=== PATIENT | female | born 1955 | race Caucasian/White ===

== ENCOUNTER 2020-12-15 13:37 | Outpatient (CLI) | payer BC, SELFPAY ==
--- NOTE | ~2020-12-15 | MM_ITS ---
EXAMINATION: MM screening ray BI w benedicto HISTORY: Screening TECHNIQUE: Craniocaudal and mediolateral oblique 3-D tomosynthesis images were obtained and synthetic 2-D images were generated. CAD analysis was submitted and interpreted. COMPARISON: No prior mammogram is available for comparison at this institution. BREAST PARENCHYMAL COMPOSITION: There are scattered areas of fibroglandular density. FINDINGS: There is no evidence of suspicious mass, calcification, or architectural distortion to sugg est malignancy in either breast. There has been no suspicious interval change. IMPRESSION: 1. No mammographic evidence of malignancy. 2. Recommend routine screening mammography in one year. BI-RADS Category 1: Negative Reviewed, dictated and finalized at location A.
== END 2020-12-15 13:38 | disposition home or self-care (01) ==
PROVIDERS: PCP Physician Assistant; Visit Provider Physician Assistant
DX: Z12.31 Encounter for screening mammogram for malignant neoplasm of breast (principal)
CPT/HCPCS: 77063; 77067

== ENCOUNTER 2022-06-29 13:54 | Outpatient (CLI) | payer MEDICARE, MEDICAID, SELFPAY ==
--- NOTE | ~2022-06-29 | DEXA_ITS ---
Bone Density Report Name: GAYE WEEMS Age: 67 Sex: Female Ethnicity: White Date of : 1955 Indication: postmenopausal; screening for osteoporosis; height loss; Referring Provider: ESME, REVA Study: Bone densitometry was performed. Exam Date: June 29, 2022 Accession number: [id number] Bone Density: Region BMD T-score Z-score Classification AP Spine(L1-L4) 1.132 0.8 2.6 Normal Femoral Neck (Left) 0.831 -0.2 1.4 Normal Total Hip (Left) 1.050 0.9 2.1 Normal Femoral Neck (Right) 0.892 0.4 1.9 Normal Total Hip (Right) 1.084 1.2 2.4 Normal Total Hip Mean 1.067 1.1 2.3 Normal World Health Organization criteria for BMD impression classify patients as: Normal (T-score at or above -1.0), Osteopenia (T-score between -1.0 and -2.5), or Osteoporosis (T-score at or below -2.5). 10-year Fracture Risk: FRAX not reported because: All T-scores for Spine Total, Hip Total, Femoral Neck at or above -1.0 Clinical Information Provided by Patient: Patient maximum height was 63 Menopause Age: 54 No regular weight bearing exercise Drinks caffeinated beverages Onset of menses at age 16 Number of children 2 Impression: The patient has normal bone mass. Discussion: BONE DENSITY IS ABOVE THE MINIMUM DESIRABLE LEVEL AT ALL SKELETAL SITES TESTED. This patient?s bone mineral density is above the minimum desirable level (T-score -1.0 or better) at all sites measured. The patient should follow a healthful lifestyle (good nutrition with adequate calcium and vitamin D, and appropriate weight-bearing exercise). Follow-Up: Consider repeating this study in 5 years or sooner if there is some new clinical indication. Reported by: NANCIE on 06/29/2022 2:25:00 PM. Reviewed, dictated and finalized at location AMitch [facility]
--- NOTE | ~2022-06-29 | MM_ITS ---
EXAMINATION: MM screening ray BI w benedicto HISTORY: Screening TECHNIQUE: Craniocaudal and mediolateral oblique 3-D tomosynthesis images were obtained and synthetic 2-D images were generated. CAD analysis was submitted and interpreted. COMPARISON: 12/15/2020 BREAST PARENCHYMAL COMPOSITION: The breasts are almost entirely fatty. FINDINGS: There is no evidence of suspicious mass, calcification, or architectural distortion to sugg est malignancy in either breast. There has been no suspicious interval change. IMPRESSION: 1. No mammographic evidence of malignancy. 2. Recommend routine screening mammography in one year. BI-RADS Category 1: Negative Reviewed, dictated and finalized at location B. RAIT ARTIST
== END 2022-06-29 13:55 | disposition home or self-care (01) ==
PROVIDERS: PCP Physician Assistant; Referring Provider Physician Assistant; Visit Provider Physician Assistant
DX: Z12.31 Encounter for screening mammogram for malignant neoplasm of breast (principal); Z13.820 Encounter for screening for osteoporosis; Z78.0 Asymptomatic menopausal state
CPT/HCPCS: 77063; 77067; 77080

== ENCOUNTER 2023-08-29 13:36 | Outpatient (CLI) | payer MEDICARE, MEDICAID, SELFPAY ==
--- NOTE | ~2023-08-29 | MM_ITS ---
EXAMINATION: MM screening [facility] BI w benedicto HISTORY: Screening mammogram, family history of breast cancer in her sister. TECHNIQUE: Craniocaudal and mediolateral oblique 3-D tomosynthesis images were obtained and synthetic 2-D images were generated. CAD analysis was submitted and interpreted. COMPARISON: 06/29/2022, 12/15/2020 BREAST PARENCHYMAL COMPOSITION: The breasts are almost entirely fatty. FINDINGS: No suspicious mass, calcification, or architectural distortion are identified in either sidney ast to suggest malignancy. There has been no suspicious interval change. IMPRESSION: 1. No mammographic evidence of malignancy. 2. Recommend routine screening mammography in one year. BI-RADS Category 1: Negative Reviewed, dictated and finalized at location A. LOADER
== END 2023-08-29 13:37 | disposition home or self-care (01) ==
LOC: ANHIMG 13:40
PROVIDERS: PCP Physician Assistant; Visit Provider Physician Assistant
DX: Z12.31 Encounter for screening mammogram for malignant neoplasm of breast (principal)
CPT/HCPCS: 77063; 77067

== ENCOUNTER 2024-07-19 11:35 | Emergency (ER) | payer MEDICARE, MEDICAID, SELFPAY ==
--- NOTE | 2024-07-19 11:51 | ED.URI ---
HPI - URI/Sore Throat General Chief Complaint: Upper Respiratory Infection Stated Complaint: sinus infection/ cough Time Seen by Provider: 07/19/24 11:50 Source: patient Mode of arrival: ambulatory Limitations: no limitations History of Present Illness HPI Narrative: Lance is a 69-year-old female patient presenting to the clinic today with complaints of possible sinus infection/cough. She reports for the past 3 days she has had a nonproductive cough, itchy ears, postnasal drip, and runny nose. She denies any fevers, chills, body aches, shortness breath, or chest pain. Blowing out mildly yellow nasal discharge MD elicited complaint: sore throat and nasal congestion Related Data Home Medications ?Medication ?Instructions ?Recorded ?Confirmed ?Last Taken ?Type cyclobenzaprine 10 mg tablet mg 07/19/24 Unknown History losartan 100 mg tablet mg 07/19/24 Unknown History pantoprazole 40 mg tablet,delayed mg PO 07/19/24 Unknown History release verapamil 240 mg 24 hr mg PO 07/19/24 Unknown History capsule,extended release verapamil 80 mg tablet mg 07/19/24 Unknown History Allergies Allergy/AdvReac Type Severity Reaction Status Date / Time codeine AdvReac Mild Nausea and Verified 07/19/24 11:55 Vomiting Review of Systems Review of Systems: Pertinent positives per HPI. Patient denies any fever, chills, rash, headache, visual changes, dizziness, cough, shortness of breath, chest pain, palpitations, nausea, vomiting, diarrhea, constipation, abdominal pain, or any urinary issues. PMFSH Comments At the time of my signature, I reviewed and agree with the nursing past medical, surgical, social, and family history. There is no relevant family history pertinent to the patient complaint. Exam Narrative: General: Well-developed, obese, in no apparent distress Head: Normocephalic, atraumatic Eyes: Pupils equally round and reactive to light bilaterally, EOM intact, sclera and conjunctive clear, no discharge, lids normal Ears: TMs intact and clear, ear canals clear, no drainage, grossly hearing normal. Nose: Nares patent, clear nasal discharge, no inflammation, no sinus tenderness. Mouth: Oral pharynx without lesions or masses, good dentition, MMM. PND Neck: Supple, trachea midline, no enlargement of anterior or posterior cervical nodes, no thyroid masses or goiter palpable. Cardio: Regular rate and rhythm, s1 and s2 normal, no murmur appreciated. Resp: Clear to auscultation bilaterally, no rhonchi, rales, wheezing or rubs Course Course Emergency Course: Portions of this record may have been created with voice recognition software. Level of Care: Express Care Visit Vital Signs Vital signs: Vital signs reviewed MDM - URI/Sore Throat MDM Narrative Medical decision making narrative: At the time of visit patient is resting comfortably on the exam table. Patient appears to be nontoxic. Plan: I suspect patient has URI. Will send in prescription for prednisone. Supportive measures were discussed with the patient and they voiced understanding discharge instructions and agrees to treatment plan. Return precautions reviewed Differential Diagnosis Differential diagnosis: Likely upper respiratory infection, otitis media, sinusitis, viral infection, bronchitis, influenza, pharyngitis and other (COVID) Discharge Plan Discharge Clinical Impression: Upper respiratory infection Qualifiers: URI type: unspecified URI Qualified Code(s): J06.9 - Acute upper respiratory infection, unspecified Patient Disposition: Home, Self-Care Condition: Stable Instructions: Antibiotic Form, Cold Symptoms (ED) Additional Instructions: Take prescription medications only as prescribed- prednisone Increase fluids and stay well hydrated Tylenol/motrin for pain/fever Flonase and OTC antihistamines as directed Vicks vapor rub to open sinuses Sinus rinses for congestion Cepacol spray, cough drops, throat lozenges, warm tea with honey/lemon, gargle salt water to soothe throat BRAT diet for diarrhea Clear liquids x 24 hours then advance as tolerated for nausea/vomiting Go to the ED if you develop a worsening in your condition- high fever not controlled by Tylenol or Motrin, dehydration, weakness, lethargy, shortness of breath, or chest pain. Follow up with your PCP in 3-5 days if symptoms persist. Patient Language: German Prescriptions: New prednisone 20 mg tablet 40 mg PO DAILY 5 Days Qty: 10 0RF No Action cyclobenzaprine 10 mg tablet pantoprazole 40 mg tablet,delayed release (DR/EC) PO verapamil 80 mg tablet losartan 100 mg tablet verapamil 240 mg capsule,ext rel. pellets 24 hr PO Follow-up/Referrals: Arabella Pop NP [Primary Care Provider] - Time of Disposition: 12:05 Quality NIHSS Nursing Documentation ED NIHSS nursing documentation: reviewed/agree
[2024-07-19 11:56] VITALS: BP 155/89; PULSE 87; RESP 20; TEMP 36.4; O2SAT 97
--- OUTSIDE RECORDS SUMMARY | 2024-07-26 17:56 | XMS_ITS | Encounter Summary ---
Author Organization [facility] Address [address] [place] [address] Care Team Providers Care Neonatal Social Worker Name Role Phone Arabella Pop APRN-JONNY Primary Care Provider Encounter Details Date Type Department Care Team (Latest Contact Info) Description 03/28/2023 Travel Social History Tobacco Use Types Packs/Day Years Used Date Smoking Tobacco: Never Passive Smoke Exposure: Never Smokeless Tobacco: Never Alcohol Use Standard Drinks/Week Comments Not Currently 0 (1 standard drink = 0.6 oz pur e alcohol) PHQ-2 Answer Date Recorded Patient Health Questionnaire-2 Score 0 03/22/2023 Sex and Gender Information Value Date Recorded Sex Assigned at Female 03/21/2023 7:00 PM CDT Gender Identity Female 03/21/2023 7:00 PM CDT Sexual Orientation Straight 03/21/2023 7: 00 PM CDT documented as of this encounter Plan of Treatment Not on file documented as of this encounter Visit Diagnoses Not on filedocumented in this encounter Care Teams Neonatal Social Worker Relationship Specialty Start Date End Date Arabella Pop, FREDERICK-JONNY [address] [place] [address] PCP - General 11/01/22 documented as of this encounter
--- OUTSIDE RECORDS SUMMARY | 2024-07-26 17:56 | XMS_ITS | Encounter Summary ---
Author Organization [facility] Address [address] [place] [address] Care Team Providers Care Loading Inspector Name Role Phone Arabella Pop APRN-JONNY Primary Care Provider Encounter Details Date Type Department Care Team (Latest Contact Info) Description 05/21/2023 Travel Social History Tobacco Use Types Packs/Day [...] on filedocumented in this encounter Care Teams Loading Inspector Relationship Specialty Start Date End Date Arabella Pop, FREDERICK-JONNY [address] [place] [address] PCP - General 11/01/22 documented as of this encounter
--- OUTSIDE RECORDS SUMMARY | 2024-07-26 17:56 | XMS_ITS | Encounter Summary ---
Author Organization [facility] Address [address] [place] [address] Care Team Providers Care Tag Meter Operator Name Role Phone Arabella Pop APRN-JONNY Primary Care Provider Encounter Details Date Type Department Care Team (Latest Contact Info) Description 05/07/2023 Travel Social History Tobacco Use Types Packs/Day [...] on filedocumented in this encounter Care Teams Tag Meter Operator Relationship Specialty Start Date End Date Arabella Pop, FREDERICK-JONNY [address] [place] [address] PCP - General 11/01/22 documented as of this encounter
--- OUTSIDE RECORDS SUMMARY | 2024-07-26 17:56 | XMS_ITS | Encounter Summary ---
Author Organization [facility] Address [address] [place] [address] Care Team Providers Care Rehabilitation Director Name Role Phone Arabella Pop Issac MACK-COMMERCIAL COUNSEL Primary Care Provider Reason for Referral * Evaluate & Treat (Routine) - Closed Specialty Diagnoses / Procedures Referred By Contac t Referred To Contact Cardiology Diagnoses Abnormal EKG Anette Winn MD [address] [place] [address] [facility] [address] [facility] [address] [place] [phone] Referral ID Status Reason Start Date Expiration Date V isits Requested Visits Authorized [id number] Closed Specialty Services Required 03/21/2023 03/20/2024 1 1 Encounter Details Date Type Department Care Team (Late st Contact Info) Description 03/21/2023 Orders Only [facility] - PATENT PROSECUTION ATTORNEY [address] [place] [address] Anette Winn MD [address] [place] [address] Abnormal EKG Social History Tobacco Use Types Packs/Day Years [...] as of this encounter Plan of Treatment Scheduled Referrals Name Type Priority Associated Diagnoses Order Schedule Ref to Cardiology [facility] Referral Routine Abnormal EKG 1 Occurrences starting 03/21/2023 until 03/21/2024 documented as of this encounter Visit Diagnoses Diagnosis Abnormal EKG- Primary Nonspecific abnormal electrocardiogram (ECG) (EKG) documented in this encounter Care Teams Rehabilitation Director Relationship Specialty Start Date End Date Arabella Pop, AVIATION TECHNICIAN AIRCRAFT-COMMERCIAL COUNSEL [address] [address] PCP - General 11/01/22 documented as of this encounter
--- OUTSIDE RECORDS SUMMARY | 2024-07-26 17:56 | XMS_ITS | Encounter Summary ---
Author Organization [facility] Address [address] [place] [address] Care Team Providers Care Automation Software Engineer Name Role Phone Arabella Pop Primary Care Provider Encounter Details Date Type Department Care Team (Late st Contact Info) Description 03/30/2023 Orders Only [facility] - SANITATION WORKER HOSING MACHINERY [address] [place] [address] Anette Winn MD [address] [place] [address] Social History Tobacco Use Types Packs/Day Years [...] on filedocumented in this encounter Care Teams Automation Software Engineer Relationship Specialty Start Date End Date Arabella Pop APRN-CNP [address] [facility] [address] [place] [id number] PCP - General 11/01/22 documented as of this encounter
--- OUTSIDE RECORDS SUMMARY | 2024-07-26 17:56 | XMS_ITS | Encounter Summary ---
Author Organization [facility] Address [address] [place] [address] Care Team Providers Care Compliance Associate Name Role Phone Arabella Pop FREDERICK-CHIEF LENDING OFFICER Primary Care Provider Reason for Visit * Reason Onset Date Comments UTI 03/30/2023 Encounter Details Date Type Department Care Team (Late st Contact Info) Description 03/30/2023 Telephone [facility] - TOBACCO WAREHOUSE AGENT [address] [address] Anette Winn MD [address] [place] [address] UTI Social History Tobacco Use Types Packs/Day Years [...] PM CDT documented as of this encounter Miscellaneous Notes * Telephone Encounter - Tyshawn Vargas RN - 03/30/2023 4:[address] Winn's message. She agrees to plan. Also, encouraged use of AZO for Bladder Pain in purple box to help with symptoms. Advised AZO won'tcure you, only abx can - if bladder infection. Verbalized understanding. Agrees to plan * Telephone Encounter - Molly No RN - 03/30/2023 4:36 PM CDT Images from the original note were not included. Anette Winn MD You Just now (4:34 PM) RUKHSANA Could be irritation from the catheter since it was just removed today. Given recent surgery and catheter use, I sent macrobid to her pharmacy for her to take to empirically treat a UTI if her symptoms do not improve over the next day. If she still has symptoms even after taking the macrobid then she will need to go to urgent care over the weekend to get a urine culture or to the lab on Sunday fora urine culture. * Telephone Encounter - Molly No RN - 03/30/2023 4:28 PM CDT Will take Azo urinary pain relief one every 8 hours as needed Checking her temperature now Reports temperature of 97.7 Urine dip in office today was negative Not sent for culture Patient uses [facility] JADE * Telephone Encounter - Molly No RN - 03/30/2023 4:21 PM CDT Thought prior to cath removal felt she was having start to UTI She reports when she starts to void, it is very painful to void When sitting on toilet, if she drank enough, patient is able to void a decent amount Bladder spasm sensation to go really hurts Feels she may be starting to get fever * Telephone Encounter - Padma Leggett - 03/30/2023 4:17 PM CDT Patient of Dr. Tatum hardy. She feels her UTI symptoms have been getting worse since she had her catheter taken out earlier. CB: [phone] Thank you so much documented in this encounter Plan of Treatment Not on file documented as of this encounter Visit Diagnoses Not on filedocumented in this encounter Care Teams Compliance Associate Relationship Specialty Start Date End Date Arabella Pop, CRABBER-CHIEF LENDING OFFICER [address] [phone] PCP - General 11/01/22 documented as of this encounter
--- OUTSIDE RECORDS SUMMARY | 2024-07-26 17:56 | XMS_ITS | Encounter Summary ---
Author Organization [facility] Address [address] [place] [address] Care Team Providers Care Barrel Filler Name Role Phone Arabella Pop CUSTOMS OPENER VERIFIER PACKER-DESULPHURING OPERATOR Primary Care Provider Reason for Visit * Reason Comments Post-Op Encounter Details Date Type Department Care Team (Late st Contact Info) Description 03/30/2023 10:30 AM CDT Office Visit [facility] - SOCIAL MEDIA CONTENT SPECIALIST [address] [address] Anette Winn MD [address] [place] [address] Post-operative state (Primary Dx) Social History Tobacco Use Types Packs/Day Years Used Date Smoking Tobacco: Never Passive Smoke Exposure: Never Smokeless Tobacco: Never Tobacco Cessation:Counseling Given: Not Answered Alcohol Use Standard Drinks/Week Comments Not Currently 0 (1 standard drink = 0.6 oz pur e alcohol) PHQ-2 Answer Date Recorded Patient Health Questionnaire-2 Score 0 03/22/2023 Sex and Gender Information Value Date Recorded Sex Assigned at Female 03/21/2023 7:00 PM CDT Gender Identity Female 03/21/2023 7:00 PM CDT Sexual Orientation Straight 03/21/2023 7: 00 PM CDT documented as of this encounter Last Filed Vital Signs Vital Sign Reading Time Taken Comments Blood Pressure 130/60 03/30/2023 10:28 AM CDT Pulse - - Temperature 36.2 ??C (97.1 ??F) 03/30/2023 10:28 AM C DT Respiratory Rate - - Oxygen Saturation - - Inhaled Oxygen Concentration - - Weight 81.6 kg (180 lb) 03/30/2023 10:28 AM CDT Height 157.5 cm (5' 2.01 ) 03/30/2023 10:28 AM C DT Body Mass Index 32.91 03/30/2023 10:28 AM CDT documented in this encounter Patient Instructions * Patient Instructions* Anette Winn MD - 03/30/2023 1:15 PM CDT Call if any problems or concerns at . You can also ask the liquefied natural gas plant operator to send me a message, and I or the nurses in Urogynecology Triage will respond when we can. If you need to send records or results to our office, our fax number is [phone]. documented in this encounter Progress Notes * Tyshawn Vargas RN - 03/30/2023 12:32 PM CDT Post op Catheter removal with back fill trial of 300cc and PVR after voiding ordered by Dr. Winn. Mckeon catheter disconnected from the mckeon bag after all urine was drained from the bladder. Connected irrigation 60cc syringe using sterile technique. Backfilled sterile water by filling 60cc at a time. She was able to tolerate all 300cc. Mckeon catheter successfully d/c'd after deflating balloon of 8.5cc. Successfully voided 225cc into collection hat and some voided into toilet. PVR performed under sterile technique of betadine, then 14fr catheter inserted. PVR = 130cc urine obtained. Pt tolerated well. Dr. Winn updated. Okay to keep catheter out. Pt d/c'd w/out mckeon catheter. Associated attestation - Anette Winn MD - 03/30/2023 1:13 PM CDT Pt passed voiding trial. She is doing well postop. Has had a BM. Denies severe pain and heavy bleeding. Reviewed precautions and restrictions. Follow up for postop visit in 6 weeks, sooner prn. documented in this encounter Plan of Treatment Not on file documented as of this encounter Visit Diagnoses Diagnosis Post-operative state- Primary Other postprocedural status documented in this encounter Care Teams Barrel Filler Relationship Specialty Start Date End Date Arabella Pop, CUSTOMS OPENER VERIFIER PACKER-DESULPHURING OPERATOR [address] [address] PCP - General 11/01/22 documented as of this encounter
--- OUTSIDE RECORDS SUMMARY | 2024-07-26 17:56 | XMS_ITS | Encounter Summary ---
Author Organization [facility] Address [address] [place] [address] Care Team Providers Care Train Braker Name Role Phone Arabella Pop Issac MACK-QUALITY ASSURANCE SUPERVISOR TRIM Primary Care Provider Reason for Referral * Cardiac (Routine) - Closed Specialty Diagnoses / Procedures Referred By Contac t Referred To Contact Cardiology Diagnoses Abnormal EKG Procedures ECHO TRANSTHORACIC MN TTE W/DOPPLER, COMPLETE MN TTE W/O DOPPLER, Stephenie Mendes DO [address] [place], [place] [address]E [address] [place] [address] [facility] Cvi Echo Cv [address] [place] [id number] Referral ID Status Reason Start Date Expiration Date Visits Re quested Visits Authorized [id number] Closed 03/22/2023 03/21/2024 1 1 Reason for Visit * Cardiac (Routine) - Closed Specialty Diagnoses / Procedures Referred By Contac t Referred To Contact Cardiology Diagnoses Abnormal EKG Procedures ECHO TRANSTHORACIC MN TTE W/DOPPLER, COMPLETE MN TTE W/O DOPPLER, [place] [address] [place] [address] [address]VE [address] [place] [address] [facility] Cvi Echo Cv [address] [place] [address], [address] [address] Referral ID Status Reason Start Date Expiration Date Visits Re quested Visits Authorized [id number] Closed 03/22/2023 03/21/2024 1 1 Encounter Details Date Type Department Care Team (Late st Contact Info) Description 04/30/2023 8:29 AM CDT - 04/30/2023 11:59 PM CDT Hospital Encounter [facility] [address] [facility], [address] [place] [address] [place] [address] [place] [address] [address] [place] [address] Discharge Disposition: Home or Self Care Social History Tobacco Use Types Packs/Day Years [...] Sign Reading Time Taken Comments Blood Pressure 148/78 04/30/2023 8:34 AM CDT Pulse - - Temperature - - Respiratory Rate - - Oxygen Saturation - - Inhaled Oxygen Concentration - - Weight 81.6 kg (180 lb) 04/30/2023 8:34 AM CDT Height 157.5 cm (5' 2 ) 04/30/2023 8:34 AM CDT Body Mass Index 32.92 04/30/2023 8:34 AM CDT documented in this encounter Medications at Time of Discharge Medication Sig Dispensed Refills Start Date End Date acetaminophen (Tylenol) 325 MG tablet Take 2 (two) tablets by mouth every 6 hours as needed for Fever or Pain Maximum allowable Acetaminophen amount = 4 Grams (4000 mg) / 24 hours. 60 tablet 03/27/2023 acyclovir (Zovirax) 5 % ointment APPLY TOPICALLY TO THE AFFECTED AREA 6 TIMES PER DAY EVERY 3 HOURS FOR 4 DAYS 01/25/2023 cyclobenzaprine (Flexeril) 10 MG tablet Take 1 (one) tablet by mouth once daily 07/21/2022 docusate sodium (Colace) 100 MG capsule Take 1 (one) capsule by mouth once daily 30 capsule 03/27/2023 Flaxseed, Linseed, (Flax Seed Oil) 1300 MG Take 1 tablet by mouth once daily ibuprofen (Motrin) 600 MG tablet Take 1 (one) tablet by mouth every 6 hours as needed for Pain 60 tablet 03/27/2023 L-Lysine HCl 500 MG Take 1 tablet by mouth once daily losartan (Cozaar) 100 MG tablet Take 1 (one) tablet by mouth once daily 06/29/2022 meclizine (Antivert) 25 MG tablet Take 1 (one) tablet by mouth 2 times daily melatonin 10 MG capsule Take 2 (two) capsules by mouth at bedtime pantoprazole EC (Protonix) 40 MG tablet Take 1 (one) tablet by mouth 12/26/2022 Pseudoephedrine HCl (SUDAFED PO) Take 120 mg by mouth once daily verapamil (Isoptin) 80 MG tablet Take 1 (one) tablet by mouth 3 times daily estradiol (Estrace) 0.1 MG/GM vaginal cream Insert 1g into the vagina nightly for 1 week. Then insert 1g into the vagina two times a week thereafter. 42.5 g 3 09/14/2022 09/05/2023 oxyCODONE, immediate release, (Roxicodone) 5 MG tabletIndications:Str ess incontinence of urine Take 1 (one) tablet by mouth every 6 hours as needed for Pain 8 tablet 03/27/2023 05/07/2023 documented as of this encounter Progress Notes * Clara Altman MA - 04/30/2023 11:59 PM CDT Patient is advised of normal echo. Clara Altman MA 05/03/2023 4:43 PM documented in this encounter Plan of Treatment Not on file documented as of this encounter Procedures Procedure Name Priority Date/Time Associated Diagnosis Comments ECHO COMPLETE Routine 04/30/2023 9:35 AM CDT Abnormal EKG documented in this encounter Results * ECHO COMPLETE (04/30/2023 9:35 AM CDT) BSA [id number] m2 SSM CV FUJI PACS LVOT stroke vol 69.95 mL SSM CV FUJI PACS LVOT stroke vol index 36.35 mL/m2 SSM CV FUJI PACS LV stroke vol 2D teich 50.187 ml SSM CV FUJI PACS LV Stroke Index 2D Teich 26.08 mL/m2 SSM CV FUJI PACS LVIDd 3.78 3.8 - 5.2 cm SSM CV FUJI PACS LVIDs 1.89 2.2 - 3.5 cm SSM CV FUJI PACS IVSd 2D 1.001 0.6 - 0.9 cm SSM CV FUJI PACS LVPWd 0.99 0.6 - 0.9 cm SSM CV FUJI PACS Fractional Shortening 2D 50 28 - 44 % SSM CV FUJI PACS LV ESV 2D 11.072 14 - 42 mL SSM CV FUJI PACS LV ESV index 2D 5.75 8 - 24 mL/m2 SSM CV FUJI PACS LV EDV 2D 61.26 46 - 106 mL SSM CV FUJI PACS LV EDV index 2D 31.84 29 - 61 mL/m2 SSM CV FUJI PACS LVOT diam 2.0 cm SSM CV FUJ I PACS LVOT area 2.99 cm2 SSM CV FUJ I PACS LV RWT 0.525 SSM CV FUJ I PACS IVS/LVPW 1.008 SSM CV FUJ I PACS LV mass 2D 116.004 66 - 150 g SSM CV FUJI PACS LV mass index 2D 60.29 44 - 88 g/m2 SSM CV FUJI PACS MV E pk mary lou 71.887 cm/s SSM CV F UJI PACS MV avg E/e' ratio 11.574 SS M CV FUJI PACS MV A pk mary lou 98.619 cm/s SSM CV F UJI PACS MV E A ratio 0.73 SSM CV FUJI PACS MV E' lateral mary lou 6.416 cm/s SS M CV FUJI PACS MV DT 230 ms SSM CV FUJ I PACS MV E' septal mary lou 6.019 cm/s SSM CV FUJI PACS MV E/e' septal 11.944 SSM C V FUJI PACS MV E/e' lateral 11.204 SSM CV FUJI PACS LA vol BP 29.753 mL SSM CV FUJ I PACS TR pk mary lou 271.7 cm/s SSM CV FUJ I PACS LVOT pk mary lou 0.86 m/s SSM CV F UJI PACS LVOT mn mary lou 0.55 m/s SSM CV F UJI PACS LVOT mn grad 1.4 mmHg SSM CV FUJI PACS LVOT Cardiac Output 4.795 l/min SSM CV FUJI PACS LVOT Cardiac Index 2.49 l/min/m2 SSM CV FUJI PACS LA vol index 15.5 16 - 34 mL/m2 SSM CV FUJI PACS LA size 3.165 2.7 - 3.8 cm SSM CV FUJI PACS LA vol BP A-L 31.229 mL SSM CV FUJI PACS TV S' mary lou 13.003 SSM CV FUJ I PACS TAPSE 2.054 1.7 cm SSM CV FUJ I PACS AV mn grad 3 mmHg SSM CV FU JI PACS AV pk grad 5 mmHg SSM CV FU JI PACS AV mn mary lou 0.77 m/s SSM CV FUJ I PACS AV pk mary lou 1.10 m/s SSM CV FUJ I PACS AV VTI 26.564 cm SSM CV [facility] I PACS LVOT pk grad 2.975 mmHg SSM CV FUJI PACS LVOT VTI 23.391 cm SSM CV FUJ I PACS AV area cont VTI 2.6 cm2 SSM CV FUJI PACS AV area pk mary lou 2.4 cm2 SSM C V FUJI PACS AV Doppler mary lou index pk mary lou 0.787 SSM CV FUJI PACS Dimensionless Index 0.881 SSM CV FUJI PACS MV PHT 67 ms SSM CV FUJ I PACS MV area PHT 3.29 cm2 SSM CV F UJI PACS MV decel slope 312.169 cm/s2 SSM C V FUJI PACS TR pk grad 30 mmHg SSM CV FU JI PACS MN pk mary lou 79.988 cm/s SSM CV FUJ I PACS MN pk grad 3 mmHg SSM CV FU JI PACS PV pk mary lou 133.259 cm/s SSM CV FUJ I PACS PV pk grad 7 mmHg SSM CV FU JI PACS Sinus of Valsalva 2.73 cm SS M CV FUJI PACS Sinus of valsalva index 1.42 cm/m2 SSM CV FUJI PACS LA ESV INDEX (BP) 15.46 ml/m2 SS M CV FUJI PACS LA ESV A4C MOD Index 17 ml/m2 SSM CV FUJI PACS LA ESV A2C MOD Index 13 ml/m2 SSM CV FUJI PACS Ao Root Diam Index (2D) 1.421 cm SSM CV FUJI PACS LVIDs index 0.98 1.3 - 2.1 cm/m2 SSM CV FUJI PACS LV LVIDd index 1.97 2.3 - 3.1 cm/m2 SSM CV FUJI PACS RVSP 33.0 mmHg SSM CV FUJ I PACS Anatomical Region Laterality Modality Ultrasound Narrative 04/30/2023 1:13 PM CDT ?Left??Ventricle: Left ventricle size is normal. Normal wall thickness. Normal systolic function with a visually estimated EF of 65 - 70%. Normal wall motion. Normal diastolic function. Tissue Doppler velocity is reduced. ?Tricuspid??Valve: Trace regurgitation. The pulmonary artery systolic pressure is borderline elevated. Estimated RVSP is 30 mmHg + RA. Left Ventricle Left ventricle size is normal. Normal wall thickness. Normal systolic function with a visually estimated EF of 65 - 70%. Normal wall motion. Normal diastolic function. Tissue Doppler velocity is reduced. Right Ventricle Right ventricle size is normal. Normal systolic function. Left Atrium Left atrium size is normal. Left atrium volume index is 15.5 mL/m2. Right Atrium Right atrium size is normal. IVC/SVC IVC was not well visualized. Mitral Valve Valve structure is normal. No restricted motion. Trace regurgitation. No stenosis. Tricuspid Valve Valve structure is normal. No restricted motion. Trace regurgitation. The pulmonary artery systolic pressure is borderline elevated. Estimated RVSP is 30 mmHg + RA. No stenosis. Aortic Valve Valve structure is trileaflet. No restricted motion. No regurgitation. No stenosis. Pulmonic Valve Valve structure is normal. No restricted motion. No regurgitation. No stenosis. Ascending Aorta Normal sized sinus of Valsalva (aortic root) and ascending aorta. Pericardium No pericardial effusion. Study Details Study quality was good. A complete 2D, color Doppler, spectral Doppler and M- mode echocardiogram was performed. The apical, parasternal and subcostal views were obtained. Procedure Note Harpal Dove MD - 04/30/2023 ? ? Left??Ventricle: Left ventricle size is normal. Normal wall thickness.Normal systolic function with a visually estimated EF of 65 - 70%. Normalwall motion. Normal diastolic function. Tissue Doppler velocity isreduced. ? ? Tricuspid??Valve: Trace regurgitation. The pulmonary artery systolicpressure is borderline elevated. Estimated RVSP is 30 mmHg + RA. Stephenieconrad Patel DO ECHO CUPID documented in this encounter Visit Diagnoses Diagnosis Abnormal EKG Nonspecific abnormal electrocardiogram (ECG) (EKG) documented in this encounter Care Teams Train Braker Relationship Specialty Start Date End Date Arabella Pop, DYE CAN OPERATOR-QUALITY ASSURANCE SUPERVISOR TRIM [address] [phone] PCP - General 11/01/22 documented as of this encounter
--- OUTSIDE RECORDS SUMMARY | 2024-07-26 17:56 | XMS_ITS | Encounter Summary ---
Author Organization [facility] Address [address] [facility] [place] [address] Care Team Providers Care Travel Guide Name Role Phone Arabella Pop SPECIALTY DEVELOPMENT CONSULTANT-CEREAL CHEMIST Primary Care Provider Reason for Visit * Reason Comments Follow-up Encounter Details Date Type Department Care Team (Late st Contact Info) Description 06/25/2023 9:00 AM RECEPTIONIST Office Visit [facility] [address] [place] [address] [address] [place] [address] [place] [address] [place] [address] [address] [place] [address] Abnormal EKG (Primary Dx); Primary hypertension; Mixed hyperlipidemia Social History Tobacco Use Types Packs/Day Years [...] Sign Reading Time Taken Comments Blood Pressure 158/98 06/25/2023 8:58 AM RECEPTIONIST Pulse 80 06/25/2023 8:58 AM RECEPTIONIST Temperature 36.7 ??C (98 ??F) 06/25/2023 8:58 AM RECEPTIONIST Respiratory Rate 18 06/25/2023 8:58 AM RECEPTIONIST Oxygen Saturation 95% 06/25/2023 8:58 AM RECEPTIONIST Inhaled Oxygen Concentration - - Weight 82.8 kg (182 lb 9.6 oz) 06/25/2023 8:58 A M RECEPTIONIST Height 157.5 cm (5' 2 ) 06/25/2023 8:58 AM RECEPTIONIST Body Mass Index 33.4 06/25/2023 8:58 AM RECEPTIONIST documented in this encounter Progress Notes * Stephenie Patel, - 06/25/2023 9:19 AM CST Bhumi Fong 1955 [facility] Cardiology Progress Note Chief Complaint Patient presents with ??? Follow-up HPI: Bhumi Fong is a/an 68 year old female referred to Cardiology for perioperative risk stratification given abnormal preop ECG. She also has history of hypertension and hyperlipidemia, not on statin. She also has family history of early coronary disease. She was able to meet 4 Mets of activity without symptoms. Echocardiogram was normal. She underwent surgery. She is here today for regular follow-up. Blood pressure still elevated. Not interested in further meds. Also with history of hyperlipidemia. Also not interested in statin. She is done well since surgery. No complications. ?? Patient Active Problem List: Benign positional vertigo Carpal tunnel syndrome of right wrist Cervical cancer screening Depression DJD (degenerative joint disease) Elevated liver function tests GERD (gastroesophageal reflux disease) Hypercholesterolemia Hyperlipidemia Hypertension Low back pain radiating to both legs Neuropathy of right hand Right arm pain Superficial thrombophlebitis SVT (supraventricular tachycardia) Urinary incontinence Past Medical History: Diagnosis Date ??? Benign paroxysmal vertigo of both ears ??? Heartburn ??? Hypertension ??? PONV (postoperative nausea and vomiting) Exam Vitals: 06/25/23 0858 BP: 158/98 Pulse: 80 Resp: 18 Temp: 98 ??F (36.7 ??C) SpO2: 95% Weight: 82.8 kg (182 lb 9.6 oz) Height: 1.575 m (5' 2 ) General appearance: alert, cooperative, no distress Neck: 7 cm JVP. Chest: clear to auscultation and percussion with normal respiratory effort and normal air exchange Cardiovascular: regular rhythm, normal S1 and S2, without murmurs, rubs or gallops Abdomen: soft without mass, non-tender, with normal bowel sounds Extremities: no clubbing, cyanosis or edema Skin: no tissue loss or ulcers. Medications: Current Outpatient Medications Medication Sig Dispense Refill ??? acetaminophen (Tylenol) 325 MG tablet Take 2 (two) tablets by mouth every 6 hours as needed forFever or Pain Maximum allowable Acetaminophen amount = 4 Grams (4000 mg) / 24 hours. 60 tablet 0 ??? acyclovir (Zovirax) 5 % ointment APPLY TOPICALLY TO THE AFFECTED AREA 6 TIMES PER DAY EVERY 3 HOURS FOR 4 DAYS ??? cyclobenzaprine (Flexeril) 10 MG tablet Take 1 (one) tablet by mouth once daily ??? docusate sodium (Colace) 100 MG capsule Take 1 (one) capsule by mouth once daily 30 capsule 0 ??? estradiol (Estrace) 0.1 MG/GM vaginal cream Insert 1g into the vagina nightly for 1 week. Then insert 1g into the vagina two times a week thereafter. 42.5 g 3 ??? Flaxseed, Linseed, (Flax Seed Oil) 1300 MG Take 1 tablet by mouth once daily ??? ibuprofen (Motrin) 600 MG tablet Take 1 (one) tablet by mouth every 6 hours as needed for Pain 60 tablet 0 ??? L-Lysine HCl 500 MG Take 1 tablet by mouth once daily ??? losartan (Cozaar) 100 MG tablet Take 1 (one) tablet by mouth once daily ??? meclizine (Antivert) 25 MG tablet Take 1 (one) tablet by mouth 2 times daily ??? melatonin 10 MG capsule Take 2 (two) capsules by mouth at bedtime ??? pantoprazole EC (Protonix) 40 MG tablet Take 1 (one) tablet by mouth ??? Pseudoephedrine HCl (SUDAFED PO) Take 120 mg by mouth once daily ??? verapamil (Isoptin) 80 MG tablet Take 1 (one) tablet by mouth 3 times daily No current facility-administered medications for this visit. Data No results for input(s): TROPONIN , CKMB in the last 23750 hours. @No results for input(s): TROPPOCT in the last 15279 hours. Recent Labs Component Name 03/20/23 0911 SODIUM 139 POTASSIUM 3.9 CHLORIDE 103 CO2 24 BUN 12 CREATININE 0.79 GLUCOSE 99 CALCIUM 9.4 Recent Labs Component Name 03/20/23 0911 WBC 4.9 HGB 14.3 HCT 43.5 PLTCOUNT 211 No results for input(s): BNP in the last 20066 hours. @No results for input(s): BNPPOCT in the last 10908 hours. Impression ICD-10-CM 1. Abnormal EKG R94.31 2. Primary hypertension I10 3. Mixed hyperlipidemia E78.2 Plan 1. Poor R-wave progression on initial ECG -echo--normal, valve abnormality, EF 65-70% -primary prevention--would recommend statin in addition to diet lifestyle modification. She has notinterested. 2. BP elevated. She states blood pressures always elevated. Not interested in further titration. -verapamil -losartan 3. History of hyperlipidemia by labs--not interested in statin -not interested statin. No follow-up made. She can follow-up with her primary care physician. If interested in further management, she can call and make an appointment. Thank you. Please call if there are any questions. Be advised that voice recognition software has been used on this chart and inadvertent errors may occur. These may not represent a true interpretation of the dictation given. Stephenie Patel DO [facility] [place] PTIONIST documented in this encounter Plan of Treatment Not on file documented as of this encounter Visit Diagnoses Diagnosis Abnormal EKG- Primary Nonspecific abnormal electrocardiogram (ECG) (EKG) Primary hypertension Unspecified essential hypertension Mixed hyperlipidemia documented in this encounter Care Teams Travel Guide Relationship Specialty Start Date End Date Arabella Pop, SPECIALTY DEVELOPMENT CONSULTANT-CEREAL CHEMIST [address] [phone] PCP - General 11/01/22 documented as of this encounter
--- OUTSIDE RECORDS SUMMARY | 2024-07-26 17:56 | XMS_ITS | Patient Health Summary ---
Author Organization [facility] Address [address] [place] [address] Care Team Providers Care Senior Payroll Specialist Name Role Phone Arabella Pop Issac MACK-MAINTENANCE CHIEF Primary Care Provider Note from [facility],non-owned Affiliates and Associated Physician Practices is amultiple site organization consisting of ambulatory clinics and hospital sitesin [place], [place], [place] and [place]. This disclosure is being madepursuant to the Care Everywhere program and may not contain all information available regarding this patient. Last updated 18.[facility] Allergies * Codeine(GI Discomfort) -Low Criticality * Lisinopril(Cough) -Medium Criticality Medications * Be aware that medications may not be up to date on this document. Alwaysverify current medications with the patient. * cyclobenzaprine (Flexeril) 10 MG tablet(Started 07/21/2022) Take 1 (one) tablet by mouth once daily * losartan (Cozaar) 100 MG tablet(Started 06/29/2022) Take 1 (one) tablet by mouth once daily * verapamil (Isoptin) 80 MG tablet Take 1 (one) tablet by mouth 3 times daily * Flaxseed, Linseed, (Flax Seed Oil) 1300 MG Take 1 tablet by mouth once daily * Pseudoephedrine HCl (SUDAFED PO) Take 120 mg by mouth once daily * melatonin 10 MG capsule Take 2 (two) capsules by mouth at bedtime * meclizine (Antivert) 25 MG tablet Take 1 (one) tablet by mouth 2 times daily * L-Lysine HCl 500 MG Take 1 tablet by mouth once daily * pantoprazole EC (Protonix) 40 MG tablet(Started 12/26/2022) Take 1 (one) tablet by mouth * acyclovir (Zovirax) 5 % ointment(Started 01/25/2023) APPLY TOPICALLY TO THE AFFECTED AREA 6 TIMES PER DAY EVERY 3 HOURS FOR 4 DAYS * acetaminophen (Tylenol) 325 MG tablet(Started 03/27/2023) Take 2 (two) tablets by mouth every 6 hours as needed for Fever or Pain Maximum allowable Acetaminophen amount = 4 Grams (4000 mg) / 24 hours. * ibuprofen (Motrin) 600 MG tablet(Started 03/27/2023) Take 1 (one) tablet by mouth every 6 hours as needed for Pain * docusate sodium (Colace) 100 MG capsule(Started 03/27/2023) Take 1 (one) capsule by mouth once daily * estradiol (Estrace) 0.1 MG/GM vaginal cream(Started 09/06/2023) INSERT 1 GRAM VAGINALLY 2 TIMES A WEEK 3 refills by 09/05/2024 Active Problems Problem Noted Date Diagnosed Date Urinary incontinence 09/14/2021 Hyperlipidemia 11/12/2020 Carpal tunnel syndrome of right wrist 07/01/2018 Low back pain radiating to both legs 05/24/2018 Neuropathy of right hand 05/24/2018 Right arm pain 04/23/2018 Benign positional vertigo 12/26/2017 Cervical cancer screening 12/03/2017 Elevated liver function tests 11/16/2015 DJD (degenerative joint disease) 11/02/2015 SVT (supraventricular tachycardia) 05/07/2015 Depression 11/05/2014 GERD (gastroesophageal reflux disease) 5 Hypercholesterolemia 11/05/2014 Superficial thrombophlebitis 11/05/2014 Hypertension 09/19/2011 Social History Tobacco Use Types Packs/Day Years [...] Orientation Straight 03/21/2023 7: 00 PM CDT Last Filed Vital Signs Vital Sign Reading Time Taken Comments Blood Pressure 158/98 06/25/2023 8:58 AM YARN WEIGHER Pulse 80 06/25/2023 8:58 AM YARN WEIGHER Temperature 36.7 ??C (98 ??F) 06/25/2023 8:58 AM YARN WEIGHER Respiratory Rate 18 06/25/2023 8:58 AM YARN WEIGHER Oxygen Saturation 95% 06/25/2023 8:58 AM YARN WEIGHER Inhaled Oxygen Concentration - - Weight 82.8 kg (182 lb 9.6 oz) 06/25/2023 8:58 A M YARN WEIGHER Height 157.5 cm (5' 2 ) 06/25/2023 8:58 AM YARN WEIGHER Body Mass Index 33.4 06/25/2023 8:58 AM YARN WEIGHER Medical Devices Implanted Type Area Aircraft Powertrain Repairer Device Identifier Shelf Expiration Date Model / Serial / Lot Sys Ureth Supp Ha Adv Trnvg Midurethral Implanted:Qty: 1 on 03/27/2023 by Anette Winn MD at [facility] N/A: [employer] 01/06/2026 [id number] / / [id number] Procedures * ECHO COMPLETE(Performed 04/30/2023) Performed for Abnormal EKG * CARDIAC EKG ORDER(Performed 03/29/2023) * APHERESIS/TRANSFUSION ORDER(Performed 03/29/2023) * CARDIAC RHYTHM STRIP ORDER(Performed 03/29/2023) * ENDOTRACHEAL TUBE NOTE(Performed 03/27/2023) * BLOOD TYPE VERIFICATION(Performed 03/27/2023) Performed for Pre-op testing * SD SLING OPER STRES INCONTINENCE(Performed 03/27/2023) Performed for Diagnosis unknown * COLPORRHAPHY ANTERIOR/POSTERIOR REPAIR(Performed 03/27/2023) Performed for Diagnosis unknown * EKG 12-LEAD(Performed 03/22/2023) Performed for Abnormal EKG * EKG 12-LEAD(Performed 03/20/2023) Performed for Preoperative examination * TYPE + SCREEN PANEL(Performed 03/20/2023) Performed for Preoperative examination * BASIC METABOLIC PANEL (CALCIUM TOTAL)(Performed 03/20/2023) Performed for Preoperative examination * CBC W AUTO DIFFERENTIAL(Performed 03/20/2023) Performed for Preoperative examination * CULTURE URINE(Performed 03/20/2023) Performed for Preoperative examination * SD CYSTOMETROGRAM W/VISION CARE ASSOCIATE&UP(Performed 11/01/2022) Performed for Mixed stress and urge urinary incontinence, Cystocele, midline, Rectocele * SD INTRAABDOMINAL PRESSURE TEST(Performed 11/01/2022) Performed for Mixed stress and urge urinary incontinence, Cystocele, midline, Rectocele * SD ANAL/URINARY MUSCLE STUDY(Performed 11/01/2022) Performed for Mixed stress and urge urinary incontinence, Cystocele, midline, Rectocele * SD ELECTRO-UROFLOWMETRY, FIRST(Performed 11/01/2022) Performed for Mixed stress and urge urinary incontinence, Cystocele, midline, Rectocele * URINALYSIS AUTO - POINT OF CARE (AMB) [facility](Performed 11/01/2022) Performed for Cystocele, midline * URINALYSIS AUTO - POINT OF CARE (AMB) [facility](Performed 09/14/2022) Performed for Mixed stress and urge urinary incontinence * SD INSERT NON-INDWELLING BLADDER(Performed 09/14/2022) Performed for Mixed stress and urge urinary incontinence Results * ECHO COMPLETE (04/30/2023 9:35 AM CDT) BSA 1.2778177 [id number] m2 SSM CV FUJI PACS LVOT stroke [...] PACS AV VTI 26.564 cm SSM CV FUJ I PACS LVOT pk grad 2.975 mmHg [...] 30 mmHg SSM CV FU JI PACS SD pk mary lou 79.988 cm/s SSM CV FUJ I PACS SD pk grad 3 mmHg SSM CV FU [...] Estimated RVSP is 30 mmHg + RA. Stephenie Patel DO ECHO CUPID * CARDIAC EKG ORDER (03/29/2023 7:58 PM CDT) Narrative 03/29/2023 7:58 PM CDT Ordered by an unspecified provider. Scanned Document CARDIAC SERVICES ORD ERABLES * APHERESIS/TRANSFUSION ORDER (03/29/2023 7:58 PM CDT) Narrative 03/29/2023 7:58 PM CDT Ordered by an unspecified provider. Scanned Document NURSING - VITAL SIGN S AND ASSESSMENT * CARDIAC RHYTHM STRIP ORDER (03/29/2023 7:57 PM CDT) Narrative 03/29/2023 7:57 PM CDT Ordered by an unspecified provider. Scanned Document CARDIAC SERVICES ORD ERABLES * ETT LINE PERFORMABLE (03/27/2023 7:58 AM CDT) Narrative Angel Avila APRN-CRNA - 03/27/2023 7:58 AM CDT Angel Avila APRN-CRNA ? 03/27/2023 ??8:00 AM Endotracheal Tube Placement: ? Patient Location: OR. Intubation Event Date/Time: ??03/27/2023 7:41 AM Procedure: intubation ([id number]). Procedure Section: ?? Sedation: under general anesthesia. Indications for Airway Management: ??anesthesia Procedure pretreatments used? ??No Induction: standard IV Patient Position: ??sniffing and ramp/troop pillow Mask Ventilation: easy. Blade Type: Thomas Blade Size: 2 Laryngoscopy View: grade 1 (full cords) Intubation Adjuncts: stylet Nasal Airway Size: 7 Tube: endotracheal tube Placement: oral Tube type: cuff - inflated Tube Size (MM): 7 Depth of Insertion (CM): 22 Measured From: lips Cuff volume (mL): ??7 Cuff Inflated With: air Number of Attempts: 1. Placement Verified By: direct visualization, bilateral breath sounds and CO2 monitor Tube secured with: ??adhesive tape. Dentition unchanged? ??Yes Difficult Airway? ??No. Procedure Start Time: 03/27/2023 7:41 AM. Staff Section ? Anesthesia Provider: Angel Avila APRN-CRNA, Performed the procedure Sky Merchant DO GENERAL ANESTHESIA O RDERABLES * BLOOD TYPE VERIFICATION (03/27/2023 6:40 AM CDT) ABO Rh A NEG 03/27/2023 7:1 4 AM CDT [facility] Blood Bank BLOOD SPECIMEN / Unknown Venipuncture / Unknown 03/27/2023 6:40 AM CDT 03/27/2023 6:44 AM CDT Sky Merchant DO LAB - BLOOD BANK ORD ERABLES Performing Organization Address City/[facility] Co de Phone Number [facility] [address] [place] [address], [facility] [phone] * EKG 12-LEAD (03/22/2023 9:36 AM CDT) Only the most recent of2 resultswithin the time period is included. Ventricular Rate 74 BPM [facility] Atrial Rate 74 BPM [facility] P-R Interval 132 ms [facility] QRS Duration ms 72 ms [facility] Q-T Interval ms 402 ms [facility] QTC Calculation (Bezet) 446 ms [facility] Calculated P [place] 29 degrees [facility] Calculated R [place] -7 degrees [facility] Calculated T [place] 15 degrees [facility] Interpretation EKG NORMAL SINUS RHYTHM POSSIBLE ANTEROLATERAL INFARCT , AGE UNDETERMINED NONSPECIFIC T WAVE ABNORMALITY ABNORMAL ECG WHEN COMPARED WITH ECG OF 20-MAR-2023 09:24, NO SIGNIFICANT CHANGE WAS FOUND Confirmed by Nickolas Galicia MD ([id number]) on 03/22/2023 5:55:42 PM [facility] MUSE 03/22/2023 9:36 AM CDT 03/22/2023 5:55 PM CDT Stephenie Patel DO ECG ORDERABLES Performing Organization Address [facility] Co de Phone Number [facility] M[facility] * CULTURE URINE (03/20/2023 9:11 AM CDT) Culture Urine 10,000-50,000 CFU/mL urogenital chana [place] 03/21/2023 2:43 PM CDT [facility] MICRO[facility] Urine URINE SPECIMEN OBTAINED BY CLEAN CATCH PROCEDURE / Unknown Collection / Unknown 03/20/2023 9:11 AM CDT 03/20/2023 9:28 AM CDT Anette Winn MD LAB - MICROBIOLOGY ORDERABLES [facility] [address] [phone] * TYPE + SCREEN PANEL (03/20/2023 9:11 AM CDT) Pathologist [facility] ABO Rh A NEG 03/20/2023 10:11 AM CDT [facility] Comment:No history; collect retype. Antibody Screen NEG 10:11 AM CDT [facility] Blood Bank BLOOD SPECIMEN / Unknown Venipuncture / Unknown 03/20/2023 9:11 AM CDT 03/20/2023 9:28 AM CDT Anette Winn MD LAB - BLOOD BANK OR DERABLES Performing Organization Address City/[facility] Co de Phone Number [facility] [address] [place], [place] [id number] [place] [address] * CBC W AUTO DIFFERENTIAL (03/20/2023 9:11 AM CDT) WBC 4.9 4.4 - 10.7 x10E9/L 03/20/2023 9:39 AM CDT [facility] WBC Corrected 03/20/2023 9:39 AM CDT [facility] RBC 4.66 3.80 - 5.20 x10E12/L 03/20/2023 9:39 AM CDT [facility] Hemoglobin 14.3 12.0 - 15.6 gm/dL 03/20/2023 9:39 AM CDT [facility] Hematocrit 43.5 35.9 - 45.5 % 03/20/2023 9:39 AM CDT [facility] MCV 93.3 80.7 - 98.3 fl 03/20/2023 9:39 AM CDT [facility] MCH 30.7 26.7 - 34.0 pg 03/20/2023 9:39 AM CDT [facility] MCHC 32.9 30.8 - 35.9 gm/dL 03/20/2023 9:39 AM CDT [facility] Platelet Count 211 153 - 416 x10E9/L 03/20/2023 9:39 AM CDT [facility] RDW-CV 13.1 12.1 - 14.9 % 03/20/2023 9:39 AM CDT [facility] MPV 10.1 9.4 - 12.9 fl 03/20/2023 9:39 AM CDT [facility] Neutrophils % 50.9 44.0 - 73.0 % 03/20/2023 9:39 AM CDT [facility] Lymphocytes % 38.8 20.0 - 43.0 % 03/20/2023 9:39 AM CDT [facility] Monocytes % 6.3 5.0 - 13.0 % 03/20/2023 9:39 AM CDT [facility] Eosinophils % 3.0 0.0 - 6.0 % 03/20/2023 9:39 AM CDT [facility] Basophils % 0.8 0.0 - 2.0 % 03/20/2023 9:39 AM T [facility] Immature Granulocytes 0.2 0 - 1 % 03/20/2023 9:39 AM CDT [facility] Neutrophil Absolute 2.50 2.01 - 7.14 x10E9/L 03/20/2023 9:39 AM CDT [facility] Lymphocytes Absolute 1.91 1.07 - 3.94 x10E9/L 03/20/2023 9:39 AM CDT [facility] Monocytes Absolute 0.31 0.26 - 1.07 x10E9/L 03/20/2023 9:39 AM T [facility] Eosinophils Absolute 0.15 0 - 0.47 x10E9/L 03/20/2023 9:39 AM CDT [facility] Basophils Absolute 0.04 0 - 0.08 x10E9/L 03/20/2023 9:39 AM [facility] Immature Granulocytes Absolute 0.01 0.00 - 0.06 x10E9/L 03/20/2023 9:39 AM CDT [facility] nRBC Auto 0 /100 WBC 03/20/2023 9:39 AM [facility] Blood BLOOD SPECIMEN / Unknown Venipuncture / Unknown 03/20/2023 9:11 AM CDT 03/20/2023 9:28 AM CDT Anette Winn MD LAB - HEMATOLOGY OR DERABLES Performing Organization Address City/[facility]/ZIP Co de Phone Number [facility] [address] [place] [address] * (ABNORMAL) BASIC METABOLIC PANEL (CALCIUM TOTAL) (03/20/2023 9:11 AM CDT) [facility] Glucose 99 70 - 105 mg/dL 03/20/2023 9:55 AM CDT [facility] Sodium 139 136 - 145 mmol/L 03/20/2023 9:55 AM CDT [facility] Potassium 3.9 3.5 - 5.1 mmol/L 03/20/2023 9:55 AM CDT [facility] Chloride 103 98 - 107 mmol/L 03/20/2023 9:55 AM CDT [facility] CO2 24 22 - 29 mmol/L 03/20/2023 9:55 AM CDT [facility] Calcium 9.4 8.4 - 10.4 mg/dL 03/20/2023 9:55 AM T [facility] Anion Gap 12 6 - 16 mmol/L 03/20/2023 9:55 AM CDT [facility] BUN 12 7 - 26 mg/dL 03/20/2023 9:55 AM T [facility] Creatinine 0.79 0.57 - 1.11 mg/dL 03/20/2023 9:55 AM T [facility] eGFR by CKD-EPI 82(L) >=90 mL/min/1.7 3 m2 03/20/2023 9:55 AM T [facility] Blood BLOOD SPECIMEN / Unknown Venipuncture / Unknown 03/20/2023 9:11 AM CDT 03/20/2023 9:28 AM CDT Anette Winn MD LAB - CHEMISTRY ORD ERABLES Performing Organization Address City/[facility]/ZIP Co de Phone Number [facility] [address] [place] [address] * SD ELECTRO-UROFLOWMETRY, FIRST, SD ANAL/URINARY MUSCLE STUDY, SD INTRAABDOMINAL PRESSURE TEST, SD CYSTOMETROGRAM W/VISION CARE ASSOCIATE&UP (11/01/2022 3:16 PM CDT) Narrative Anette Winn MD - 11/01/2022 3:16 PM CDT Anette Winn MD ? 11/05/2022 12:19 PM Urogynecology and Pelvic Reconstructive Surgery Procedure Note: Urodynamic Evaluation 11/01/2022 Subjective Bhumi Fong is a 67 year old female who presents for a urodynamic evaluation. Indication(s) for study: mixed urinary incontinence, cystocele, rectocele. Laboratory Results: Catheterized urine dipstick shows: negative Urodynamic Data: ?? Urodynamic studies are performed in a seated position unless otherwise noted. Complex uroflowmetry was performed to noninvasively study the urine flow over time. ??The patient was instructed to void on a commode chair. ??A post void residual urine measurement was performed via straight catheterization immediately after uroflowmetry. Using calibrated equipment, the maximum urinary flow rate was 23 cc per second with a voiding time of 21 seconds and a voided volume of 169 cc. The residual urine was 5 cc. Complex Uroflowmetry Impressions: Continuous flow, normal PVR Complex cystometry was performed to assess bladder sensation and storage. ??A dual-channel 7-Fr catheter was passed via the urethra into the bladder. ??A second 7-Fr catheter was placed in the vagina or rectum to measure intra-abdominal pressure. ??Both catheters were zeroed to atmospheric pressure and the bladder was filled with room-temperature saline in retrograde fashion using a pump. ??Bladder sensation and urgency were assessed while filling. Bladder pressure was continuously observed during the study for evidence of involuntary detrusor contractions. ??At maximum capacity, provocative measures were performed to elicit involuntary detrusor contractions. ??These measures include: cough, heel-bounce, listening to running water, position change, and/or guided imagery. The bladder was filled with room temperature water at a rate of 80 cc per minute. The patient tolerated this and she was found to have: First sensation (S1) at 50 cc. Sensation of fullness at 195 cc. ?Strong desire at 300 cc. Maximal cystometric capacity of 375 cc. She does have normal bladder compliance. She does not have loss of urine with a rise in detrusor pressure. Stress testing was performed during cough and Valsalva to observe for urine loss from the urethra. This is performed with any significant prolapse reduced (barrier reduction testing). Cough leak point pressure (CLPP): CLPP: 116 cm H20 at 300 cc Valsalva leak point pressure (VLPP): VLPP: 80 cm H20 at 151 cc Complex Cystometry Impressions: Bladder Sensation: normal Bladder Compliance: normal Detrusor Function: no detrusor overactivity Stress Testing Impressions: urodynamic stress incontinence Urethral pressure profilometry was performed to assess urethral function. The transurethral catheter is slowly withdrawn through the urethra in order to assess urethral closure pressures. ??Once this portion of the study is completed, the transurethral catheter is re-inserted into the bladder for the remainder of the urodynamic evaluation. Urethral pressure profilometry (UPP): Maximal urethral closure pressure (MUCP): 38 cm H20 Urethral Pressure Profile Impression: MUCP: Borderline ( 20 cm H20 < MUCP < 40 cm H20) ? A micturition, or pressure-flow study, was performed in order to further evaluate voiding function. ??In this study the transurethral and vaginal (or rectal) catheters are left in place and the patient urinates around these catheters. ??Bladder pressures are recorded while also recording urine flow over time. At the end of the study, all catheters are removed and a final post void residual is obtained. ??Post procedure instructions are reviewed. The patient was instructed to void. She voided via detrusor contraction. Her maximal detrusor during void (Pdet max) was 12.5 cm water. Her void was phasic. Her post void residual by catheterization was 10 cc. ?? Pressure Flow Study Impressions: Detrusor function: normal Perineal surface electromyography (EMG) was performed during complex cystometry and micturition, to assess pelvic floor muscle activity during filling and voiding phases of urodynamic studies. Urethral function: elevated pelvic floor EMG activity during the void, normal PVR Assessment: ??Bhumi Fong is a 67 year old female with: ??ICD-10-CM ?? 1. Mixed stress and urge urinary incontinence ??N39.46 OBG Surgery Scheduling Order ??PROC URODYNAMICS 2. Vaginal atrophy ??N95.2 ?? 3. Constipation, unspecified constipation type ??K59.00 ?? 4. Cystocele, midline ??N81.11 URINALYSIS AUTO - POINT OF CARE (AMB) [facility] ??OBG Surgery Scheduling Order ??PROC URODYNAMICS 5. Rectocele ??N81.6 OBG Surgery Scheduling Order ??PROC URODYNAMICS There was not evidence of DO or DOI. ??The patient did demonstrate stress incontinence with VLPP of 80 cm H20 at 151 cc with barrier reduction. ?? 1. Uroflow Impression: Normal uroflowmetry and normal post void residual 2. Cystometrogram Summary: normal sensation, normal compliance, no detrusor overactivity 3. Stress Testing Impressions: urodynamic stress incontinence 4. Urethral Pressure Profile Summary: MUCP: Borderline ( 20 cm H20 < MUCP < 40 cm H20) 5. Pressure Flow Summary: elevated pelvic floor EMG activity during the void, normal PVR Plan: The patient will follow up with me to discuss the results and determine a plan, see separate note. Anette Winn MD Anette Winn MD PROCEDURE/MINOR WAQAR GICAL ORDERABLES * URINALYSIS AUTO - POINT OF CARE (AMB) [facility] (11/01/2022 2:15 PM CDT) Only the most recent of2 resultswithin the time period is included. Glucose UA neg Bilirubin UA POCT neg Ketones UA POCT neg Specific Bowler UA 1.015 Blood Urine POCT neg pH UA 7.5 Protein UA neg Urobilinogen UA neg Nitrite UA neg WBC UA neg Urine URINE / Unknown 11/01/2022 2 :15 PM CDT Anette Winn MD LAB - POINT OF CARE ORDERABLES * SD INSERT NON-INDWELLING BLADDER (09/14/2022 12:00 PM YARN WEIGHER) Narrative Anette Winn MD - 09/14/2022 12:00 PM YARN WEIGHER Anette Winn MD ? 09/14/2022 12:56 PM Procedure note: Straight catheterization was performed after swabbing the urethra with betadine. A 14 Fr urethral catheter was inserted without difficulty and the bladder was drained for 10 mL. The patient tolerated the procedure well. ?? Anette Winn MD PROCEDURE/MINOR WAQAR GICAL ORDERABLES Care Teams Senior Payroll Specialist Relationship Specialty Start Date End Date Arabella Pop, CLOTH PRINTING INSPECTOR-MAINTENANCE CHIEF [address] [phone] PCP - General 11/01/22
--- OUTSIDE RECORDS SUMMARY | 2024-07-26 17:56 | XMS_ITS | Encounter Summary ---
Author Organization [facility] Address [address] [place] [address] Care Team Providers Care Marker Hand Name Role Phone Arabella Pop MANAGER PURCHASING-INTERCEPTOR OPERATOR Primary Care Provider Reason for Visit * Auth/Cert (Routine) Specialty Diagnoses / Procedures Referred By Contac t Referred To Contact Diagnoses Diagnosis unknown Diagnosis unknown [R69] Procedures NM SLING OPER STRES INCONTINENCE NM COMBINED ANT/POST COLPORRHAPHY NM SLING OPER STRES INCONTINENCE NM REPAIR OF PERINEUM,NON OBSTETRICAL NM CYSTOURETHROSCOPY COLPORRHAPHY ANTERIOR/POSTERIOR REPAIR SLING OPERATION FEMALE Referral ID Status Reason Start Date Expiration Date Visits Re quested Visits Authorized [id number] 1 1 Encounter Details Date Type Department Care Team (Late st Contact Info) Description 03/27/2023 7:34 AM CDT Anesthesia Event [facility] [address] [place] [address] Sky Merchant, DO [address] [facility] [place] [address] Chadwick Puckett MD [address] [facility] [place] [address] Anesthesia Record Procedure Summary Procedure Name Responsible Anesthesiologist Anesthesia Start Time Anesthesia Stop Time ANTERIOR / POSTERIOR COLPORRHAPHY (Perineum) Sky Merchant DO 03/27/23 0734 03/27/23 1316 Events Date Time Event Comment 03/27/2023 0659 0734 An Start 0737 An Start Data 0739 PT Reassessment 0739 Induction 0741 An Intubation 0757 Stop ABX 0807 Timeout Anesthesia part icipated in timeout at the time documented in the record by nursing. 1302 Extubation 1306 an stop data 1306 Electnc Sig This record is electronically signed by the providers listed under staff. 1306 ANPTO2 1316 An Stop Meds Name Total midazolam 2 mg/2mL injection 2 mg fentaNYL 100 mcg/2mL injection 100 mcg lidocaine 2% injection (20 mg/ml) 60 mg propofol 200mg/20mL injection 170 mg succinylcholine (ANECTINE) 100 mg/5 mL i njection 100 mg rocuronium 50mg/5mL injection 140 mg phenylephrine 1000 mcg/10mL injection 50 0 mcg dexamethasone 4 mg/ml injection 8 mg ondansetron 4 mg/2mL injection 4 mg ketorolac 30 mg/ml injection 30 mg sugammadex 200 mg/2 mL injection 200 mg ceFAZolin (Ancef) 2 g in 0.9% NaCl IV 50 mL IVPB 4 g ePHEDrine injection 50 mg/ml 15 mg dexMEDETOmidine (PRECEDEX) 200 mcg/2ml i njection 35 mcg ketamine 50 mg/ml injection 50 mg HYDROmorphone 2 mg/ml injection 0.4 mg lactated ringers infusion 2,000 mL * Agents Name Insp. N2O Exp. Sevoflurane Exp. Desflurane Exp. N2O O2 Air Insp. Sevoflurane Insp. Desflurane N2O * Blood No blood administrations on file. Lines, Drains, and Airways Type Details Placement Removal Peripheral IV Date: 03/27/23; Time : 0639; Orientation: Anterior, Distal, Left; Placed By: Annette HAIRSTON 03/27/23638 by Farzana Conde RN 03/27/[id number] by Shaunna Burks RN ETT Date: 03/27/23; Time : 0741; Placed By: Angel Avila APRN-TARGETING ACQUISITION OFFICER; Vent: easy mask; Induction: Standard IV; Blade Type: Thomas; Blade Size: 2; Laryngoscopy View: Grade 1 (full cords); Intubation Adjuncts: Stylet; Tube: Endotracheal Tube; Placement: Oral; Tube Type: Cuffed-inflated; Tube Size(mm): 7 MM; Depth of Insertion: 22 CM; Measured From: lips; Attempts: 1; Cuff Infated: Air; Cuff Vol(mL): 7 mL; Verified By: Direct visualization, Bilateral breath sounds, CO2 Monitor 03/27/23 0741 by Angel Avila APRN-CRNA 03/27/23 1302 by Angel Avila APRN-CRNA Procedural Site (Incision) 03/27/23; 0808; Vagina; 03/28/23; 0121 03/27/23 0808 by Katelynn Altman RN 03/28/23 0121 by Generic, Auto Release Urethral Catheter 03/27/23; 0810; Dr Theodore; Straight-tip, Double-lumen / 2-Way, Non-latex; No; 16; 10 mL; Yes, Seal Intact; 1; General Anesthesia; 03/27/23; 1811; Per order; (voiding trial); Shaunna Burks RN 03/27/23 0810 by Katelynn Altman RN 03/27/23 181 by Shaunna Burks RN documented in this encounter Social History Tobacco Use Types Packs/Day Years [...] PM CDT documented as of this encounter Progress Notes * Veknat Ricks MD - 03/27/2023 2:29 PM CDT ANESTHESIA POSTOP EVALUATION NOTE Procedure: ANTERIOR / POSTERIOR COLPORRHAPHY (Perineum) MIDURETHRAL SLING, PERINEORRHAPHY, CYSTOSCOPY (Vagina ) Bhumi Fong is a 68 year old female Patient Vitals for the past 6 hrs: BP Temp Pulse Resp SpO2 Pain Rating Score #1 Pain Scale/Observation 03/27/23 1310 120/73 98.4 ??F (36.9 ??C) 101 24 98 % 0 F;B 03/27/23 1315 119/66 -- 96 22 98 % -- -- 03/27/23 1320 121/67 -- 102 22 99 % -- -- 03/27/23 1325 133/73 -- 101 9 99 % 0 F;B 03/27/23 1330 134/71 -- 103 16 99 % -- -- 03/27/23 1335 129/71 -- 103 10 95 % -- -- 03/27/23 1340 136/66 -- 100 22 95 % -- -- 03/27/23 1345 123/72 -- 103 18 93 % -- -- 03/27/23 1350 129/65 -- 102 21 91 % -- -- 03/27/23 1355 123/71 -- 99 23 94 % -- -- 03/27/23 1400 130/68 -- 97 25 91 % -- -- 03/27/23 1405 117/64 -- 100 19 94 % -- -- 03/27/23 1410 129/69 -- 98 25 92 % -- -- 03/27/23 1415 144/65 -- 96 21 91 % -- -- 03/27/23 1420 134/74 -- 95 (!) 7 91 % -- -- 03/27/23 1425 127/68 -- 96 19 91 % -- -- Anesthesia Type: general ETT Pre-op Diagnosis Codes: * Diagnosis unknown [R69] Mental Status: awake and sufficiently recovered from acute administration of anesthesia to participate in the evaluation Neuro Status: No numbess, tingling or visual disturbances Respiratory Function: natural Cardiac Function: stable Postop Pain: acceptable to the patient Postop Hydration: adequate Postop Nausea: none Assessment: no apparent anesthetic complications Patient Disposition: Release from Anesthesia Care NOTABLE EVENTS: No notable events documented. * Sky Merchant DO - 03/27/2023 6:58 AM CDT ANESTHESIA PREOPERATIVE EVALUATION NOTE Procedure: ANTERIOR / POSTERIOR COLPORRHAPHY (Perineum) MIDURETHRAL SLING, PERINEORRHAPHY, CYSTOSCOPY (Vagina ) NPO status: Since Midnight; *Except Oral meds with H2O (03/27/2023 6:37 AM) Vitals: Patient Vitals for the past 6 hrs: BP Temp Pulse Resp SpO2 Pain Rating Score #1 03/27/23 0636 159/73 97 ??F (36.1 ??C) 78 16 96 % 0 LMP: No LMP recorded (lmp unknown). Patient is postmenopausal. OB Status: Postmenopausal ANESTHESIA PRE-EVALUATION NOTE The patient is a current non-smoker. Physical Exam: Orientation X3 Airway/Mallampati Score: II Mouth Opening Distance: 3 fingerwidths Neck ROM: limited TM Distance: < 3 FB Teeth: normal Heart: normal - S1 S2 Lungs: clear to ausculation bilaterally Review of Systems: History of anesthetic complications: Yes PONV: Yes, personal history Delayed Emergence: No Emergence Agitation: No Induction/Emergence Bronchospasm: No Post Dural Puncture Headache: No Atypical Pseudocholinesterase: No Difficult IV Access: No ANESTHESIA PLAN ASA Score: 2 (Class I obesity, HTN, GERD) NPO Status: No solids since midnight and No liquids within 2 hours Anesthesia Plan: general ETT Planned Induction: intravenous Planned Postop Destination: PACU Anesthetic plan was discussed with: patient, significant other Anesthetic Plan discussion was: Consented BMI, Height, Weight Tobacco History Estimated body mass index is 33.11 kg/m?? as calculated from the following: Height as of this encounter: 1.575 m (5' 2 ). Weight as of this encounter: 82.1 kg (181 lb). Social History Tobacco Use Smoking Status Never ??? Passive exposure: Never Smokeless Tobacco Never Vaping Use ??? Vaping Use: Never used Alcohol History Drug History Social History Substance and Sexual Activity Alcohol Use Not Currently Social History Substance and Sexual Activity Drug Use Never Outpatient Medications: Inpatient Medications: Outpatient Medications Marked as Taking for the 03/27/23 encounter (Hospital Encounter) Medication Sig Last Dose ??? cyclobenzaprine Take 1 (one) tablet by mouth once daily 03/26/2023 at 10pm ??? estradiol Insert 1g into the vagina nightly for 1 week. Then insert 1g into the vagina two times a week thereafter. Past Month ??? Flax Seed Oil Take 1 tablet by mouth once daily 03/26/2023 at 10pm ??? L-Lysine HCl Take 1 tablet by mouth once daily 03/26/2023 at 08am ??? losartan Take 1 (one) tablet by mouth once daily 03/27/2023 at 0430 ??? meclizine Take 1 (one) tablet by mouth 2 times daily 03/26/2023 at 10pm ??? melatonin Take 2 (two) capsules by mouth at bedtime 03/26/2023 at 10pm ??? pantoprazole EC Take 1 (one) tablet by mouth 03/26/2023 at 10pm ??? Pseudoephedrine HCl (SUDAFED PO) Take 120 mg by mouth once daily 03/26/2023 at 08am ??? verapamil Take 1 (one) tablet by mouth 3 times daily 03/27/2023 at 0430am Current Facility-Administered Medications Medication Dose Last Admin ??? 0.9% NaCl 3 mL And ??? 0.9% NaCl 1-10 mL ??? ceFAZolin 2 g ??? lactated ringers New Bag at 03/27/23 0642 ??? lidocaine 0.2 mL 0.2 mL at 03/27/23 0642 ??? magnesium sulfate 2 g ??? scopolamine 1 patch 1 patch at 03/27/23 0641 And ??? scopolamine patch placement confirmation Allergies: Allergies Allergen Reactions ??? Lisinopril Cough ??? Codeine GI Discomfort Relevant Problems No relevant active problems Problem List: Patient Active Problem List Diagnosis Date Noted ??? Urinary incontinence 09/14/2021 Priority: Not Prioritized ??? Hyperlipidemia 11/12/2020 Priority: Not Prioritized ??? Carpal tunnel syndrome of right wrist 07/01/2018 Priority: Not Prioritized ??? Low back pain radiating to both legs 05/24/2018 Priority: Not Prioritized Last Assessment & Plan: Recommend continuing chiropractic treatments with Dr. Zamora. Refilled ibuprofen 800mg; advised limiting use. States only uses at bedtime. Start cyclobenzaprine 10mg 3 times daily as needed for muscle spasm. Will make you drowsy do not take and drive. May use tylenol 500mg every 4-6 hours for mild to moderate pain. Education; if loss of bowel or bladder control go to the emergency dept for treatment. Verbalizes understanding of instructions. Follow up 6 weeks. ??? Neuropathy of right hand 05/24/2018 Priority: Not Prioritized Last Assessment & Plan: Ordered nerve conduction study. ??? Right arm pain 04/23/2018 Priority: Not Prioritized Last Assessment & Plan: Education; your symptoms are likely due to nerve compression due to inflammation. If symptoms persist after 4 weeks will obtain nerve conduction study to further evaluate. Verbalizes understanding ofinstructions. May continue using previously prescribed ibuprofen 800mg three times daily. May also use tylenol 500mg every 4-6 hours as needed for mild to moderate pain. Follow up as needed. ??? Benign positional vertigo 12/26/2017 Priority: Not Prioritized Last Assessment & Plan: Adarsh maneuver performed. Increased dizziness with head rotated to left. Symptoms likely due to benign positional vertigo possibly aggravated by eustachion tube dysfunctionon same side. Start prednisone 40mg daily. Start meclizine 25 mg three times daily as needed of dizziness. Education; if symptoms worsen; then return to office. If nausea, vomiting, chest pain, then go to the emergency dept for treatment. Verbalizes understanding of instructions. Follow up as needed. ??? Cervical cancer screening 12/03/2017 Priority: Not Prioritized ??? Elevated liver function tests 11/16/2015 Priority: Not Prioritized ??? DJD (degenerative joint disease) 11/02/2015 Priority: Not Prioritized ??? SVT (supraventricular tachycardia) ([facility]/HCC) 05/07/2015 Priority: Not Prioritized ??? Depression 11/05/2014 Priority: Not Prioritized ??? GERD (gastroesophageal reflux disease) 11/05/2014 Priority: Not Prioritized ??? Hypercholesterolemia 11/05/2014 Priority: Not Prioritized Last Assessment & Plan: Lipid abnormalities are being assessed. . Nutritional counseling was provided. Lipids will be reassessed in 1 year. Ordered CMP, Lipid panel Have labs drawn at earliest convenience, fasting, I will call with results. Education; avoid fatty and processed foods. Exercise 30 minutes 5 days weekly. Verbalizes understanding. ??? Superficial thrombophlebitis 11/05/2014 Priority: Not Prioritized ??? Hypertension 09/19/2011 Priority: Not Prioritized Last Assessment & Plan: Hypertension is unchanged. Continue current treatment regimen. Blood pressure will be reassessed in 1 year. Blood pressure noted to be elevated during intake vitals. Discussed elevation, Mrs Fong attributes elevation to being in office. Education; monitor blood pressure at home. At rest for 5 min, cuff heart level, feet flat on floor.If greater than 140/90 return to clinic. Verbalizes understanding. Medical History: Past Medical History: Diagnosis Date ??? Benign paroxysmal vertigo of both ears ??? Heartburn ??? Hypertension ??? PONV (postoperative nausea and vomiting) Surgical History: Past Surgical History: Procedure Laterality Date ??? CARPAL TUNNEL SURGERY ??? Cervical LEEP 1998 ??? Tonsillectomy ??? 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 Patient is postmenopausal. Postmenopausal OB History Para Term AB Living 2 2 2 0 0 2 SAB IAB Ectopic Multiple Live Births 0 0 0 0 2 # Outcome Date GA Lbr [place]/2nd Weight Sex Delivery Anes PTL Lv 2 Term ALVARO 1 Term ALVARO Covid Vaccine: Lab Results: Recent Labs Component Name 03/20/23 0911 WBC 4.9 RBC 4.66 HCT 43.5 HGB 14.3 PLTCOUNT 211 MCV 93.3 MCH 30.7 MCHC 32.9 MPV 10.1 Recent Labs Component Name 03/20/23 0911 ABORH A NEG ABSCG NEG Recent Labs Component Name 03/20/23 0911 SODIUM 139 POTASSIUM 3.9 CALCIUM 9.4 CHLORIDE 103 CO2 24 GLUCOSE 99 BUN 12 CREATININE 0.79 No results found for requested labs within last 120 days. Recent Labs Result Component Current Result Anion Gap 12 (03/20/2023) eGFR by CKD-EPI 82 (L) (03/20/2023) documented in this encounter Procedure Notes * Angel Avila, FREDERICK-TARGETING ACQUISITION OFFICER - 03/27/2023 7:58 AM CDTAssociated Order(s): ETT Placement Endotracheal Tube Placement: Patient Location: OR. Intubation Event Date/Time: 03/27/2023 7:41 AM Procedure: intubation ([id number]). Procedure Section: Sedation: under general anesthesia. Indications for Airway Management: anesthesia Procedure pretreatments used? No Induction: standard IV Patient Position: sniffing and ramp/troop pillow Mask Ventilation: easy. Blade Type: Thomas Blade Size: 2 Laryngoscopy View: grade 1 (full cords) Intubation Adjuncts: stylet Nasal Airway Size: 7 Tube: endotracheal tube Placement: oral Tube type: cuff - inflated Tube Size (MM): 7 Depth of Insertion (CM): 22 Measured From: lips Cuff volume (mL): 7 Cuff Inflated With: air Number of Attempts: 1. Placement Verified By: direct visualization, bilateral breath sounds and CO2 monitor Tube secured with: adhesive tape. Dentition unchanged? Yes Difficult Airway? No. Procedure Start Time: 03/27/2023 7:41 AM. Staff Section Anesthesia Provider: Angel Avila APRN-CRNA, Performed the procedure documented in this encounter Miscellaneous Notes * Anesthesia Transfer of Care - Angel Avila APRN-CRNA - 03/27/2023 1:14 PM CDT ANESTHESIA TRANSFER OF CARE NOTE Today's Date: 03/27/2023 Date of : 1955 Patient: Bhumi Fong Procedure(s): ANTERIOR / POSTERIOR COLPORRHAPHY MIDURETHRAL SLING, PERINEORRHAPHY, CYSTOSCOPY Surgeon(s): Primary: Anette Winn MD Resident - Assisting: Raúl Sparks MD Preop Diagnosis: Pre-op Diagnois: * Diagnosis unknown [R69] Pre-op Meds (From admission, onward) Start Stop Status Route Frequency Ordered 03/27/23 0615 0.9% NaCl injection 1-10 mL See Hyperspace for full Linked Orders Report. -- Dispensed IK PRN 03/27/23 0615 03/27/23 0630 0.9% NaCl injection 3 mL See Hyperspace for full Linked Orders Report. -- Dispensed IK EVERY 8 HOURS 03/27/23 0615 03/27/23 0838 0.9% nacl irrigation solution 03/27/23 1251 Completed CONTINUOUS PRN 03/27/23 0839 03/27/23 0645 acetaminophen (Tylenol) tablet 1,000 mg 03/27/23 0641 Completed PO ONCE 03/27/23 0618 03/27/23 0630 ceFAZolin (Ancef) 2 g in 0.9% NaCl IV 50 mL IVPB 03/27/23 1153 Completed IV ONCE 03/27/23 0615 03/27/23 1059 dexAMETHasone (Decadron) injection -- Sent IV PRN 03/27/23 1113 03/27/23 0937 dexmedeTOMIDine (Precedex) injection -- Sent IV PRN 03/27/23 0937 03/27/23 1253 diphenhydrAMINE (Benadryl) injection 25 mg -- Verified IV ONCE PRN 03/27/23 1253 03/27/23 0852 ePHEDrine 50 MG/ML injection -- Sent IV PRN 03/27/23 0852 03/27/23 0739 fentaNYL (PF) (Sublimaze) injection -- Sent IV PRN 03/27/23 0754 03/27/23 1253 fentaNYL (PF) (Sublimaze) injection 50 mcg -- Verified IV EVERY 10 MIN PRN 03/27/23 1253 03/27/23 1246 HYDROmorphone (Dilaudid) injection -- Sent IV PRN 03/27/23 1248 03/27/23 1253 HYDROmorphone (Dilaudid) injection 0.5 mg -- Verified IV EVERY 10 MIN PRN 03/27/23 1253 03/27/23 1309 ibuprofen (Motrin) tablet 600 mg -- Sent PO EVERY 6 HOURS PRN 03/27/23 1312 03/27/23 1300 insulin regular human (HumuLIN R; NovoLIN R) 100 UNIT/ML injection 0-6 Units 03/28/23 0059 Verified IV ONCE 03/27/23 1253 03/27/23 0958 ketamine (Ketalar) injection -- Sent IV PRN 03/27/23 0958 03/27/23 1225 ketorolac (Toradol) injection -- Sent IV PRN 03/27/23 1225 03/27/23 0630 lactated ringers infusion -- Verified IV PRE-OP CONTINUOUS 03/27/23 0618 03/27/23 1300 lactated ringers infusion -- Verified IV CONTINUOUS 03/27/23 1253 03/27/23 0739 lidocaine HCl (PF) (Xylocaine MPF) 2 % injection -- Sent IV PRN 03/27/23 0754 03/27/23 0616 lidocaine PF (Xylocaine MPF) 1 % injection 0.2 mL -- Verified INFILTRATION PRE-OP MULTIPLE 03/27/23 0618 03/27/23 0630 magnesium sulfate 2 g in 50 mL bolus 03/27/23 1829 Verified IV ONCE 03/27/23 0615 03/27/23 0734 midazolam (Versed) injection -- Sent IV PRN 03/27/23 0750 03/27/23 1253 naloxone (Narcan) injection 0.04 mg -- Verified IV POST-OP MULTIPLE 03/27/23 1253 03/27/23 1227 ondansetron (Zofran) injection -- Sent IV PRN 03/27/23 1233 03/27/23 1253 ondansetron (Zofran) injection 4 mg -- Verified IV ONCE PRN 03/27/23 1253 03/27/23 1309 oxyCODONE-acetaminophen (Percocet) 5-325 MG tablet 1 tablet -- Sent PO EVERY 4 HOURS PRN 03/27/23 1312 03/27/23 0826 phenylephrine 100 mcg/mL injection -- Sent IV PRN 03/27/23 0826 03/27/23 0739 propofol (Diprivan) injection -- Sent IV PRN 03/27/23 0755 03/27/23 0747 rocuronium (Zemuron) injection -- Sent IV PRN 03/27/23 0750 03/27/23 0645 scopolamine (Transderm-Scop) 1 patch See Hyperspace for full Linked Orders Report. 03/30/23 0641 Verified TD ONCE 03/27/23 0618 03/27/23 0900 scopolamine patch placement confirmation See Hyperspace for full Linked Orders Report. 03/30/23 2059 Verified TD 2 TIMES DAILY 03/27/23 0618 03/27/23 0739 succinylcholine (Anectine) injection -- Sent IV PRN 03/27/23 0755 03/27/23 1246 sugammadex (Bridion) injection -- Sent IV PRN 03/27/23 1248 Post-op Diagnosis: * Diagnosis unknown [R69] . Allergies Allergen Reactions ??? Lisinopril Cough ??? Codeine GI Discomfort Vitals: Patient Vitals for the past 3 hrs: BP Temp Pulse Resp SpO2 Pain Rating Score #1 03/27/23 1310 120/73 98.4 ??F (36.9 ??C) 101 24 98 % 0 Lines, Drains, and Airways Type Details Placement Removal Peripheral IV Date: 03/27/23; Time: 0639; Orientation: Anterior, Distal, Left; Location: Forearm; Placed By: Annette HAIRSTON; Gauge: 20 Gauge 03/27/23 0639 by Farzana Conde RN ETT Date: 03/27/23; Time: 07; Placed By: EVERT Garcia; Vent: easy mask; Induction: Standard IV; Blade Type: Thomas; Blade Size: 2; Laryngoscopy View: Grade 1 (full cords); Intubation Adjuncts: Stylet; Tube: Endotracheal Tube; Placement: Oral; Tube Type: Cuffed-inflated; Tube Size(mm): 7 MM; Depth of Insertion: 22 CM; Measured From: lips; Attempts: 1; Cuff Infated: Air; Cuff Vol(mL): 7 mL; Verified By: Direct visualization, Bilateral breath sounds, CO2 Monitor 03/27/23 0741 by Angel Avila APRN-CRNA 03/27/23 1302 by Angel Avila APRN-CRNA Intraprocedure I/O Totals Intake lactated ringers infusion 2000.00 mL ceFAZolin (Ancef) 2 g in 0.9% NaCl IV 50 mL IVPB 50.00 mL Total Intake 2050 mL Output Urine 800 mL Estimated Blood Loss 150 mL Total Output 950 mL Net Net Volume 1100 mL Patient Transfer Location: PACU Transport Airway: spontaneous respirations, supplemental O2 and oral airway Complications: None Handoff Given? Yes Checklist or Protocol - The boggs handoff elements that must be included in the transfer of care checklist include: 1. Identification of patient. 2. Identification of responsible practitioner (PACU nurse or advanced practitioner). 3. Discussion of pertinent medical history. 4. Discussion of the surgical/procedure course (procedure, reason for surgery, procedure performed). 5. Intraoperative anesthetic management and issue/concerns. 6. Expectations/Plans for the early post-procedure period. 7. Opportunity for questions and acknowledgement of understanding of report from the receiving PACUteam. EVERT GARCIA documented in this encounter Plan of Treatment Not on file documented as of this encounter Procedures Procedure Name Priority Date/Time Associated Diagnosis Comments ENDOTRACHEAL TUBE NOTE Routine 03/27/2023 7:58 AM CDT documented in this encounter Results * ETT LINE PERFORMABLE (03/27/2023 7:58 AM CDT) Narrative Angel Avila APRN-CRNA - 03/27/2023 7:58 AM CDT Angel Avila APRN-CRNA ? 03/27/2023 ??8:00 AM Endotracheal Tube Placement: ? Patient Location: OR. Intubation Event Date/Time: ??03/27/2023 7:41 AM Procedure: intubation ([id number]). Procedure Section: ?? Sedation: under general anesthesia. [...] Sky Merchant DO GENERAL ANESTHESIA O RDERABLES documented in this encounter Visit Diagnoses Not on filedocumented in this encounter Administered Medications Inactive Administered Medications - up to 3 most recent administrations Medication Order MAR Action Action Date Dose Rate Site ceFAZolin (Ancef) 2 g in 0.9% NaCl IV 50 mL IVPB 2 g, at 100 mL/hr, Intravenous, ONCE, 1 dose, On Sun03/27/23 at 0630, Administer within 60 minutes before surgical incision to ensure adequate antibiotic concentration at surgical sites at the time of incision. Antibiotic infusion must be complete at least 10 minutes prior to incision or tourniquet placement. Give antibiotics in the following order to optimize timin. Vancomycin (if ordered) 2. Metronidazole(if ordered) 3. Cefazolin Compatible antibiotics may be administered together, Indication for anti-infective therapy: Surgical prophylaxis, Pre-op $ Bolus New Bag 03/27/2023 11:53 AM CDT 2 g $ New Bag/Syringe 03/27/2023 7:44 AM CDT 2 g dexAMETHasone (Decadron) injection Intravenous, PRN, Starting on Sun03/27/23 at 1059, Until Sun03/27/23 at 1318, Anesthesia Intra-op $ Given 03/27/2023 10:59 AM CDT 8 mg dexmedeTOMIDine (Precedex) injection Intravenous, PRN, Starting on Sun03/27/23 at 0937, Until Sun03/27/23 at 1318, Anesthesia Intra-op $ Given 03/27/2023 12:29 PM CDT 10 mcg $ Given 03/27/2023 10:09 AM CDT 10 mcg $ Given 03/27/2023 10:00 AM CDT 5 mcg ePHEDrine 50 MG/ML injection Intravenous, PRN, Starting on Sun03/27/23 at 0852, Until Sun03/27/23 at 1318, Anesthesia Intra-op $ Given 03/27/2023 9:08 AM CDT 5 mg $ Given 03/27/2023 8:52 AM CDT 10 mg fentaNYL (PF) (Sublimaze) injection Intravenous, PRN, Starting on Sun03/27/23 at 0739, Until Sun03/27/23 at 1318, Anesthesia Intra-op $ Given 03/27/2023 7:39 AM CDT 100 mcg HYDROmorphone (Dilaudid) injection Intravenous, PRN, Starting on Sun03/27/23 at 1246, Until Sun03/27/23 at 1318, Anesthesia Intra-op $ Given 03/27/2023 12:46 PM CDT 0.4 mg ketamine (Ketalar) injection Intravenous, PRN, Starting on Sun03/27/23 at 0958, Until Sun03/27/23 at 1318, Anesthesia Intra-op $ Given 03/27/2023 12:29 PM CDT 10 mg $ Given 03/27/2023 11:55 AM CDT 10 mg $ Given 03/27/2023 10:34 AM CDT 10 mg ketorolac (Toradol) injection Intravenous, PRN, Starting on Sun03/27/23 at 1225, Until Sun03/27/23 at 1318, Anesthesia Intra-op $ Given 03/27/2023 12:25 PM CDT 30 mg lactated ringers infusion at 20 mL/hr, Intravenous, PRE-OP CONTINUOUS, Starting on Sun03/27/23 at 0630, Until Sun03/27/23 at 2020, Pre-op $ New Bag/Syringe 03/27/2023 12:33 PM CDT 20 mL/hr $ New Bag/Syringe 03/27/2023 8:35 AM CDT 20 mL/ hr $ New Bag/Syringe 03/27/2023 6:42 AM CDT 20 mL/ hr lidocaine HCl (PF) (Xylocaine MPF) 2 % injection Intravenous, PRN, Starting on Sun03/27/23 at 0739, Until Sun03/27/23 at 1318, Anesthesia Intra-op $ Given 03/27/2023 7:39 AM CDT 60 mg midazolam (Versed) injection Intravenous, PRN, Starting on Sun03/27/23 at 0734, Until Sun03/27/23 at 1318, Anesthesia Intra-op $ Given 03/27/2023 7:34 AM CDT 2 mg ondansetron (Zofran) injection Intravenous, PRN, Starting on Sun03/27/23 at 1227, Until Sun03/27/23 at 1318, Anesthesia Intra-op $ Given 03/27/2023 12:27 PM CDT 4 mg phenylephrine 100 mcg/mL injection Intravenous, PRN, Starting on Sun03/27/23 at 0826, Until Sun03/27/23 at 1318, Anesthesia Intra-op $ Given 03/27/2023 8:49 AM CDT 100 mcg $ Given 03/27/2023 8:43 AM CDT 100 mcg $ Given 03/27/2023 8:33 AM CDT 100 mcg propofol (Diprivan) injection Intravenous, PRN, Starting on Sun03/27/23 at 0739, Until Sun03/27/23 at 1318, Anesthesia Intra-op $ Given 03/27/2023 7:39 AM CDT 170 mg rocuronium (Zemuron) injection Intravenous, PRN, Starting on Sun03/27/23 at 0747, Until Sun03/27/23 at 1318, Anesthesia Intra-op $ Given 03/27/2023 10:23 AM CDT 20 mg $ Given 03/27/2023 9:36 AM CDT 20 mg $ Given 03/27/2023 8:44 AM CDT 20 mg succinylcholine (Anectine) injection Intravenous, PRN, Starting on Sun03/27/23 at 0739, Until Sun03/27/23 at 1318, Anesthesia Intra-op $ Given 03/27/2023 7:39 AM CDT 100 mg sugammadex (Bridion) injection Intravenous, PRN, Starting on Sun03/27/23 at 1246, Until Sun03/27/23 at 1318, Anesthesia Intra-op $ Given 03/27/2023 12:46 PM CDT 200 mg documented in this encounter Care Teams Marker Hand Relationship Specialty Start Date End Date Arabella Pop, MANAGER PURCHASING-INTERCEPTOR OPERATOR [address] [id number] PCP - General 11/01/22 documented as of this encounter
--- OUTSIDE RECORDS SUMMARY | 2024-07-26 17:56 | XMS_ITS | Clinical Summary ---
Author Organization [facility] Address [address] [place] [address] Care Team Providers Care Machine Strap Buckler Name Role Phone Arabella Pop FREDERICK-COMMODITY INDUSTRY ANALYST Primary Care Provider Source Comments [facility],non-owned Affiliates and Associated Physician Practices is amultiple site organization consisting of ambulatory clinics and hospital sitesin [place], [place], [place] and [place]. This disclosure is being madepursuant to the Care Everywhere program and may not contain all information available regarding this patient. Last updated 18.[facility] Allergies Active Allergy Reactions Criticality Noted Date Comments Codeine GI Discomfort Low 12/03/2017 Lisinopril Cough Medium 09/14/2022 Medications * Be aware that medications may not be up to date on this document. Alwaysverify current medications with the patient. Medication Sig Dispensed Refills Start Date End Date Status cyclobenzaprine (Flexeril) 10 MG tablet Take 1 (one) tablet by mouth once daily 07/21/2022 Active losartan (Cozaar) 100 MG tablet Take 1 (one) tablet by mouth once daily 06/29/2022 Active verapamil (Isoptin) 80 MG tablet Take 1 (one) tablet by mouth 3 times daily Active Flaxseed, Linseed, (Flax Seed Oil) 1300 MG Take 1 tablet by mouth once daily Active Pseudoephedrine HCl (SUDAFED PO) Take 120 mg by mouth once daily Active melatonin 10 MG capsule Take 2 (two) capsules by mouth at bedtime Active meclizine (Antivert) 25 MG tablet Take 1 (one) tablet by mouth 2 times daily Active L-Lysine HCl 500 MG Take 1 tablet by mouth once daily Active pantoprazole EC (Protonix) 40 MG tablet Take 1 (one) tablet by mouth 12/26/2022 Active acyclovir (Zovirax) 5 % ointment APPLY TOPICALLY TO THE AFFECTED AREA 6 TIMES PER DAY EVERY 3 HOURS FOR 4 DAYS 01/25/2023 Active acetaminophen (Tylenol) 325 MG tablet Take 2 (two) tablets by mouth every 6 hours as needed for Fever or Pain Maximum allowable Acetaminophen amount = 4 Grams (4000 mg) / 24 hours. 60 tablet 03/27/2023 Active ibuprofen (Motrin) 600 MG tablet Take 1 (one) tablet by mouth every 6 hours as needed for Pain 60 tablet 03/27/2023 Active docusate sodium (Colace) 100 MG capsule Take 1 (one) capsule by mouth once daily 30 capsule 03/27/2023 Active estradiol (Estrace) 0.1 MG/GM vaginal cream INSERT 1 GRAM VAGINALLY 2 TIMES A WEEK 42.5 g 3 09/06/2023 Active Active Problems Problem Noted Date Diagnosed Date Urinary incontinence 09/14/2021 Hyperlipidemia 11/12/2020 Carpal tunnel syndrome of right wrist 07/01/2018 Low back pain radiating to both legs 05/24/2018 Overview (09/14/2022): Last Assessment & Plan: Recommend continuing chiropractic [...] understanding of instructions. Follow up 6 weeks. Neuropathy of right hand 05/24/2018 Overview (09/14/2022): Last Assessment & Plan: Ordered nerve conduction study. Right arm pain 04/23/2018 Overview (09/14/2022): Last Assessment & Plan: Education; your symptoms are likely due to nerve compression due to inflammation. If symptoms persist after 4 weeks will obtain nerve conduction study to further evaluate. Verbalizes understanding of instructions. May continue using previously prescribed ibuprofen 800mg three times daily. May also use tylenol 500mg every 4-6 hours as needed for mild to moderate pain. Follow up as needed. Benign positional vertigo 12/26/2017 Overview (09/14/2022): Last Assessment & Plan: Adarsh maneuver performed. Increased dizziness with head rotated to left. Symptoms likely due to benign positional vertigo possibly aggravated by eustachion tube dysfunction on same side. Start prednisone 40mg daily. Start meclizine 25 mg three times daily as needed of dizziness. Education; if symptoms worsen; then return to office. If nausea, vomiting, chest pain, then go to the emergency dept for treatment. Verbalizes understanding of instructions. Follow up as needed. Cervical cancer screening 12/03/2017 Elevated liver function tests 11/16/2015 DJD (degenerative joint disease) 11/02/2015 SVT (supraventricular tachycardia) 05/07/2015 Depression 11/05/2014 GERD (gastroesophageal reflux disease) 5 Hypercholesterolemia 11/05/2014 Overview (09/14/2022): Last Assessment & Plan: Lipid abnormalities are being assessed. . Nutritional counseling was provided. Lipids will be reassessed in 1 year. Ordered CMP, Lipid panel Have labs drawn at earliest convenience, fasting, I will call with results. Education; avoid fatty and processed foods. Exercise 30 minutes 5 days weekly. Verbalizes understanding. Superficial thrombophlebitis 11/05/2014 Hypertension 09/19/2011 Overview (09/14/2022): Last Assessment & Plan: Hypertension is unchanged. Continue current treatment regimen. Blood pressure will be reassessed in 1 year. Blood pressure noted to be elevated during intake vitals. Discussed elevation, Mrs Fong attributes elevation to being in office. Education; monitor blood pressure at home. At rest for 5 min, cuff heart level, feet flat on floor. If greater than 140/90 return to clinic. Verbalizes understanding. Family History Medical History Relation Name Comments CAD (Coronary Artery Disease) Brother 1 Hypertension Brother 1 Hypertension Brother 2 High Cholesterol Mother Hypertension Mother Osteoporosis Mother CAD (Coronary Artery Disease) Sister 1 Cancer - Breast Sister 1 Hypertension Sister 1 CAD (Coronary Artery Disease) Sister 2 Hypertension Sister 2 Relation Name Status Comments Brother 1 Brother 2 Alive Mother Sister 1 Sister 2 Alive Social History Tobacco Use Types Packs/Day Years [...] Comments Blood Pressure 158/98 06/25/2023 8:58 AM DRILLER MULTIPLE SPINDLE Pulse 80 06/25/2023 8:58 AM DRILLER MULTIPLE SPINDLE Temperature 36.7 ??C (98 ??F) 06/25/2023 8:58 AM DRILLER MULTIPLE SPINDLE Respiratory Rate 18 06/25/2023 8:58 AM DRILLER MULTIPLE SPINDLE Oxygen Saturation 95% 06/25/2023 8:58 AM DRILLER MULTIPLE SPINDLE Inhaled Oxygen Concentration - - Weight 82.8 kg (182 lb 9.6 oz) 06/25/2023 8:58 A M DRILLER MULTIPLE SPINDLE Height 157.5 cm (5' 2 ) 06/25/2023 8:58 AM DRILLER MULTIPLE SPINDLE Body Mass Index 33.4 06/25/2023 8:58 AM DRILLER MULTIPLE SPINDLE Plan of Treatment Health Maintenance Due Date Last Done Comments BONE DENSITY TESTING 1957 COLOGUARD (AGES 45-75) - COLON CA SCREENING 1957 COLON MONITORING 1957 COLONOSCOPY - COLON CA SCREENING 1957 CT COLONOGRAPHY - COLON CA SCREENING 1957 Colorectal Cancer Screening 1957 FIT - COLON CA SCREENING 1957 FLEX SIG - COLON CA SCREENING 1957 LIPID TESTING 1957 MAMMOGRAM 1957 HEPATITIS C SCREENING 12/30/1974 DTAP/TDAP/TD VACCINES (1 - Tdap) 01/04/1976 ZOSTER VACCINE (1 of 2) 2007 PNEUMOCOCCAL VACCINE 50+ (1 of 1 - PCV) 2022 COVID-19 VACCINE (1 - 2023- season) 2024 INFLUENZA VACCINE (#1) 2024 DEPRESSION SCREENING 07/16/2024 05/21/2023, 05/07/2023, 04/30/2023, Additional history exists MEDICARE AWV ? CALENDAR YEAR 2024 SCREENING FOR DIABETES 03/20/2026 03/20/2023 Respiratory Syncytial Virus (RSV) Vaccine Pt: or over 60 yrs (1 - 1-dose 75+ series) 01/04/2032 HEPATITIS B VACCINE Aged Out No longe r eligible based on patient's age to complete this topic HIB VACCINE Aged Out No longer eligi ble based on patient's age to complete this topic HPV VACCINE Aged Out No longer eligi ble based on patient's age to complete this topic MENINGOCOCCAL VACCINE Aged Out No brandie lion eligible based on patient's age to complete this topic Medical Devices Implanted Type Area Block Layer Device Identifier Shelf Expiration Date Model / Serial / Lot Sys Ureth Supp Ha Adv Trnvg Midurethral Implanted:Qty: 1 on 03/27/2023 by Anette Winn MD at [facility] N/A: Vagina Nevro 01/06/2026 [id number] / / [id number] Procedures Procedure Name Priority Date/Time Associated Diagnosis Comments BASIC METABOLIC PANEL (CALCIUM TOTAL) Pre-Op 03/20/2023 9:11 AM CDT Preoperative examination from Last 3 Months or Most Recently Relevant to Health Maintenance Results * (ABNORMAL) BASIC METABOLIC PANEL (CALCIUM TOTAL) (03/20/2023 9:11 AM CDT) [facility] Signature Glucose 99 70 - 105 mg/dL 03/20/2023 9:55 AM CDT [facility] Sodium 139 136 - 145 mmol/L 03/20/2023 9:55 AM CDT [facility] Potassium 3.9 3.5 - 5.1 mmol/L 03/20/2023 9:55 AM CDT [facility] Chloride 103 98 - 107 mmol/L 03/20/2023 9:55 AM CDT [facility] CO2 24 22 - 29 mmol/L 03/20/2023 9:55 AM CDT [facility] Calcium 9.4 8.4 - 10.4 mg/dL 03/20/2023 9:55 AM CDT [facility] Anion Gap 12 6 - 16 mmol/L 03/20/2023 9:55 AM CDT [facility] BUN 12 7 - 26 mg/dL 03/20/2023 9:55 AM CDT [facility] Creatinine 0.79 0.57 - 1.11 mg/dL 03/20/2023 9:55 AM CDT [facility] eGFR by CKD-EPI 82(L) >=90 mL/min/1.7 3 m2 03/20/2023 9:55 AM CDT [facility] Blood BLOOD SPECIMEN / Unknown Venipuncture / Unknown 03/20/2023 9:11 AM CDT 03/20/2023 9:28 AM CDT Anette Winn MD LAB - CHEMISTRY ORD ERABLES [facility] [address] [id number] from Last 3 Months or Most Recently Relevant to Health Maintenance Care Teams Machine Strap Buckler Relationship Specialty Start Date End Date Arabella Pop, ENROLLED NURSE-COMMODITY INDUSTRY ANALYST [address] [place] [id number] PCP - General 11/01/22
--- OUTSIDE RECORDS SUMMARY | 2024-07-26 17:56 | XMS_ITS | Encounter Summary ---
Author Organization [facility] Address [address] [place] [address] Care Team Providers Care Problem Manager Name Role Phone Arabella Pop SUPERVISOR ASSEMBLY-CHARGEMASTER ANALYST Primary Care Provider Reason for Visit * Reason Comments Post-Op Encounter Details Date Type Department Care Team (Late st Contact Info) Description 05/21/2023 1:00 PM RESERVES CLERK Office Visit [facility] - RETIREMENT PLAN SPECIALIST [address] [address] Anette Winn MD [address] [place] [address] Postop check (Primary Dx); Vaginal atrophy Social History Tobacco Use Types Packs/Day Years [...] Sign Reading Time Taken Comments Blood Pressure 136/84 05/21/2023 1:09 PM RESERVES CLERK Pulse - - Temperature 36.7 ??C (98 ??F) 05/21/2023 1:09 PM RESERVES CLERK Respiratory Rate - - Oxygen Saturation - - Inhaled Oxygen Concentration - - Weight 82.4 kg (181 lb 9.6 oz) 05/21/2023 1:09 P M RESERVES CLERK Height 157.5 cm (5' 2.01 ) 05/21/2023 1:09 PM CS T Body Mass Index 33.21 05/21/2023 1:09 PM RESERVES CLERK documented in this encounter Patient Instructions * Patient Instructions* Anette Winn MD - 05/21/2023 1:29 PM RESERVES CLERK Vaginal estrogen 2 times a week. Excellent support. 1. Follow up with your regular physicians for ongoing medical care. 2. Call with any vaginal bleeding, discharge, or pain. Return if you should experience new prolapseor incontinence symptoms. Call if any problems or concerns at . You can also ask the driver operator to send me a message, and I or the nurses in Urogynecology Triage will respond when we can. If you need to send records or results to our office, our fax number is [phone]. RVES CLERK documented in this encounter Progress Notes * Anette Winn MD - 05/21/2023 1:00 PM CST Urogynecology and Pelvic Reconstructive Surgery Post-Operative Visit Referring Provider: No ref. provider found PCP: Arabella Pop, FREDERICK-CHARGEMASTER ANALYST Date of Service: 05/21/2023 History of Present Illness: Ms. Fong is a 68 year old female who presents for a post-op visit. Mixed Urinary Incontinence: ?GEN>UUI > oxybutynin was ineffective??and made her urinary incontinence worse, she would like to hold onother medications for OAB at this time > discussed behavioral interventions including weight loss > bothered by urinary leakage with standing, unsure if it is with the act of standing or with urgency after she stands > pelvic floor physical therapy??- continue?? > bladder diary??reviewed?? Vaginal atrophy: vaginal estrogen Constipation: daily psyllium fiber??- no improvement with the psyllium capsules. Will do a trial ofmiralax > recommend she get a colonoscopy 03/27/23: ANTERIOR??AND??POSTERIOR COLPORRHAPHY, PERINEORRHAPHY, MIDURETHRAL SLING,??CYSTOURETHROSCOPY 05/07/23: Doing well after surgery. Denies pain, bleeding, urine leakage. Has some urinary urgency but no leakage. No GEN. Having regular BMs, taking a stool softener. Vagina: Adhesions on the right side of the vagina from the anterior wall to the posterior wall, taken down bluntly with one digit. Bleeding skin edges cauterized with silver nitrate. No tenderness along the anterior or posterior vagina. No apical tenderness. No pelvic masses. No evidence of mesh exposure. POP-Q: Performed in the dorsal lithotomy position Vaginal/Pelvic floor support: POP-Q- Aa / Ba / C: -/ Gh / pb / tvl: Ap / Bp / D: - Stress test: negative supine valsalva stress test. Vaginal adhesions: taken down bluntly today, edges cauterized with silver nitrate. Use vaginal estrogen and the applicator in a circular motion in the vagina every other night until an exam in 2 weeks. OAB: mild, monitor Postop check: She was reassured regarding her excellent support. 1. The patient will follow up with her regular physicians for ongoing medical care. 2. Return for a pelvic exam in 2 weeks.? Interval History: Doing well with the vaginal estrogen cream. Denies vaginal bleeding. Denies urinary incontinence and bulge symptoms. Past Medical History: Past Medical History: Diagnosis Date ??? Benign paroxysmal vertigo of both ears ??? Heartburn ??? Hypertension ??? PONV (postoperative nausea and vomiting) Past Surgical History: Past Surgical History: Procedure Laterality Date ??? CARPAL TUNNEL SURGERY ??? Cervical LEEP 1998 ??? COLPORRHAPHY ANTERIOR/POSTERIOR N/A 03/27/2023 N/A; ANTERIOR / POSTERIOR COLPORRHAPHY ??? Tonsillectomy ??? TUBAL LIGATION, LAPAROSCOPIC ??? URETHRAL SLING N/A 03/27/2023 N/A; MIDURETHRAL SLING, PERINEORRHAPHY, CYSTOSCOPY Medications: Current Outpatient Medications on File Prior to Visit Medication Sig Dispense Refill ??? acetaminophen (Tylenol) [...] 3 times daily No current facility-administered medications on file prior to visit. Allergies: Patient is allergic to lisinopril and codeine. PHYSICAL EXAM: BP 136/84 Temp 98 ??F (36.7 ??C) Ht 1.575 m (5' 2.01 ) Wt 82.4 kg (181 lb 9.6 oz) Abdomen: Nontender. Nondistended. Pelvic Examination: Performed in the dorsal lithotomy position Chaperoned by: Girma Kate Normal external genitalia. Normal vaginal epithelium. Vagina: Incisions healing well. No adhesions. No tenderness along the anterior or posterior vagina.No apical tenderness. No pelvic masses. No evidence of mesh exposure. Excellent support. Stress test: negative supine valsalva stress test. Assessment: ICD-10-CM 1. Postop check Z09 2. Vaginal atrophy N95.2 Plan: Postop check: She was reassured regarding her excellent support and no vaginal adhesions on exam today. 1. The patient will follow up with her regular physicians for ongoing medical care. 2. She was instructed to call with any vaginal bleeding, discharge, or pain. She was encouraged to return if she should experience new prolapse or incontinence symptoms. Vaginal atrophy: continue vaginal estrogen RVES CLERK documented in this encounter Plan of Treatment Not on file documented as of this encounter Visit Diagnoses Diagnosis Postop check- Primary Follow-up examination, following unspecified surgery Vaginal atrophy Postmenopausal atrophic vaginitis documented in this encounter Care Teams Problem Manager Relationship Specialty Start Date End Date Arabella Pop, SUPERVISOR ASSEMBLY-CHARGEMASTER ANALYST [address] [phone] PCP - General 11/01/22 documented as of this encounter
--- OUTSIDE RECORDS SUMMARY | 2024-07-26 17:56 | XMS_ITS | Encounter Summary ---
Author Organization [facility] Address [address] [place] [address] Care Team Providers Care Human Factors Specialist Name Role Phone Arabella Pop FREDERICK-ALTITUDE CHAMBER TECHNICIAN Primary Care Provider Reason for Visit * Reason Comments Refill Request Encounter Details Date Type Department Care Team (Late st Contact Info) Description 09/05/2023 Refill [facility] - [facility] ST[facility] [address] [place] [phone] Anette Winn MD [address] [place] [address] Refill Request Social History Tobacco Use Types Packs/Day Years [...] encounter Miscellaneous Notes * Telephone Encounter - Dalila Aguayo LPN - 09/05/2023 1:22 PM PROGRAM CONSULTANT Last visit 06/07 Next visit none on books Last refill estradiol vaginal cream 10/05 Per epic protocol refill failed Will have to send to provider . RAM CONSULTANT documented in this encounter Plan of Treatment Not on file documented as of this encounter Visit Diagnoses Not on filedocumented in this encounter Care Teams Human Factors Specialist Relationship Specialty Start Date End Date Arabella Pop APRN-ALTITUDE CHAMBER TECHNICIAN [address] [phone] PCP - General 11/01/22 documented as of this encounter
--- OUTSIDE RECORDS SUMMARY | 2024-07-26 17:56 | XMS_ITS | Encounter Summary ---
Author Organization [facility] Address [address] [place] [address] Care Team Providers Care Assistant Casino Shift Manager Name Role Phone Arabella Pop BOOK AUTHOR-QUALITY TESTER Primary Care Provider Reason for Visit * Auth/Cert (Routine) Specialty Diagnoses / Procedures Referred By Contac t Referred To Contact Diagnoses Diagnosis unknown Diagnosis unknown [R69] Procedures PA SLING OPER STRES INCONTINENCE PA COMBINED ANT/POST COLPORRHAPHY PA SLING OPER STRES INCONTINENCE PA REPAIR OF PERINEUM,NON OBSTETRICAL PA CYSTOURETHROSCOPY COLPORRHAPHY ANTERIOR/POSTERIOR REPAIR SLING OPERATION FEMALE Referral ID Status Reason Start Date Expiration Date Visits Re quested Visits Authorized [id number] 1 1 Encounter Details Date Type Department Care Team (Latest Contact Info) Description 03/27/2023 5:18 AM CDT - 03/27/2023 7:20 PM CDT Hospital Encounter [facility] [address] [place] [address] Anette Winn MD [address] [place] [id number] Surgery General Discharge Disposition: Home or Self Care Social [...] Sign Reading Time Taken Comments Blood Pressure 159/84 03/27/2023 6:15 PM CDT Pulse 97 03/27/2023 6:15 PM CDT Temperature 36.6 ??C (97.9 ??F) 03/27/2023 2:48 PM CD T Respiratory Rate 20 03/27/2023 6:15 PM CDT Oxygen Saturation 98% 03/27/2023 6:15 PM CDT Inhaled Oxygen Concentration - - Weight 82.1 kg (181 lb) 03/27/2023 6:31 AM CDT Height 157.5 cm (5' 2 ) 03/27/2023 6:31 AM CDT Body Mass Index 33.11 03/27/2023 6:31 AM CDT documented in this encounter Discharge Instructions * Discharge Instructions* Raúl Sparks MD - 03/27/2023 1:13 PM CDT Urogynecology and Pelvic Reconstructive Surgery Discharge Instructions Diet: Increase intake of high protein foods (lean meats, milk, milk products, cheese, fish, poultry, eggs, peanut butter, dried beans). Drink 8-10 glasses of liquid each day, especially water, avoid alcoholic beverages. If you become constipated, you may drink prune juice, take a stool softener or a mild laxative suchas Milk of Magnesia or Miralax. Activity: You may use the stairs cautiously; taking one step at a time. Nothing in the vagina (no tampons, douching, or intercourse) for 6 weeks (unless instructed differently by physician) No heavy lifting (less than 10 pounds) You may shower; You may wash incision with soap and water; do not apply powder or lotions to incision. You may do light housework after 2-3 weeks, however you should avoid vacuuming, sweeping or moppingfor 6 weeks. Gradually increase activity by walking a little more each day. Remove Steri-Strips in 7 to 10 days. Remove dressing (Band-Aid or clear bandage with gauze) 24 hours after discharge. After vulvar surgery; clean perineal area after each urination or bowel movement - use tap water susy squirt bottle, pat dry and blow dry using blow dryer on the cool setting. Report any of the following: Red or swollen incision. Temperature is greater than 100.4 F (38.0 C) degrees. Sudden increased abdominal pain. Bleeding from wound, rectum, vagina or in urine (light vaginal bleeding can be expected for 2-6 weeks following surgery). Pain or burning with urination. If either leg becomes warm, red, painful and/or swollen. Persistent nausea and/or vomiting. For perineal care: Ice packs to the perineum for the first 48 hours. Then sitz baths up to three times a day as needed. You may use a juanpablo-bottle to rinse the perineum before and after voiding. Report problems: For a life-threatening emergency, call 911. Mon-Fri 8am to 4:30 pm: Urogynecology Triage Nurse . For urgent after-hours questions: Call the medical exchange at . For appointments call . Please do not send faxes/electronic messages as a means of contact during non- business hours or on weekends, as no one is available. Voiding Instructions If you have a Mckeon (in-dwelling) catheter in your bladder: Use the leg-bag during the day and the large bag during the night while you are sleeping. Please report any of the following: Cloudy or foul-smelling urine Blood in urine Fever and/or chills Low back pain If you think you have a bladder infection Urine is not draining into the bag If you are catheterizing yourself: Void every 2-3 hours to prevent bladder distention during the day. Record the amount you urine on your own and the amount of urine obtained with self-catheterization. Continue to catheterize until you urine at least 150mL (or cc) on your own, followed by self-catheterization that drains less than 150 mL of urine from your bladder two times in a row After each use, was the catheter with warm soapy water and rinse it thoroughly. Let the catheter air dry before re-using. Please report any of the following: Cloudy or foul-smelling urine Blood in urine Fever and/or chills Low back pain If you think you have a bladder infection documented in this encounter Medications at Time [...] 03/27/2023 05/07/2023 documented as of this encounter H&P Notes * Anette Winn MD - 03/22/2023 10:27 AM CDT U Urogynecology History and Physical Date of Planned Admission: 03/27/2023 Chief Complaint: Prolapse HPI: Bhumi Fong is a 67 year old female who presents today as a return visit. ?? 09/14/22 initial visit: Reports that when she moves and walks she pees . ??16 years ago she went to [place] and saw someonefor urine leakage. She did jumping and did not leak. Was told she had a shy bladder. Reports she took medication for an overactive bladder and it made her symptoms worse. Outside records received, COURT Gam[place]??and [facility] [place]: Office notes about rash and HTN. Referral order for daily incontinence, no improvement with kegels or antimuscarinics, may need PFPT, mild cystocele. Oxybutynin was listed on the medication list in a clinic note. GEN:??Daily?? UUI: Occurs daily. voids every??1??hours, and awakens 0??times per night to void. has previously been treated with a medication that she cannot remember the name of. does??have a history of frequent UTI, last was 1.5 years ago. has??constipation. Reports no improvement with diet changes and miralax. has 2??bowel movements perweek.??Has never had a colonoscopy, had a negative cologard last fall.?? Fecal Incontinence: She has??loss of stool unformed stool??without her control. Rare, only when GI illness.? has??a history of abnormal Pap smears, s/p LEEP in 1998. 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 She??is??sexually active. She does not have??dyspareunia. ??2 SVDs Exam: Neg ORACLE IAM CONSULTANT, PVR 10 ml, Brinks 2/9, Udip neg Vagina:?Vaginal mucosa without lesions and??with??atrophy. ?? POP-Q- Aa / Ba / C: - Gh / pb / tvl: Ap / Bp / D: ??- Mixed Urinary Incontinence: ?? GEN>UUI. we recommend urodynamic evaluation. ?? > oxybutynin was ineffective??and made her urinary incontinence worse, she would like to hold onother medications for OAB at this time > discussed behavioral interventions including weight loss > bothered by urinary leakage with standing, unsure if it is with the act of standing or with urgency after she stands > referral to pelvic floor physical therapy > considering sling surgery > bladder diary Vaginal atrophy: prescription for vaginal estrogen was sent to the patient's pharmacy. Constipation: daily psyllium fiber. > recommend she get a colonoscopy Pelvic Organ Prolapse - Cystocele??and rectocele: desires surgical treatment for the cystocele??andrectocele??and was provided with information regarding the surgical treatment of prolapse. > she is considering sling surgery and therefore considering anterior and posterior colporrhaphyat the time of sling surgery ?? 11/01/22 UDS: There was not evidence of DO or DOI. The patient did demonstrate stress incontinence with VLPP of 80 cm H20 at 151 cc with barrier reduction. 1. Uroflow Impression: Normal uroflowmetry and normal post void residual 2. Cystometrogram Summary: normal sensation, normal compliance, no detrusor overactivity 3. Stress Testing Impressions: urodynamic stress incontinence 4. Urethral Pressure Profile Summary: MUCP: Borderline ( 20 cm H20 < MUCP < 40 cm H20) 5. Pressure Flow Summary: elevated pelvic floor EMG activity during the void, normal PVR ?? Interval History: Reports she is most bothered by leakage with movement. Feels urgency when she stands up. Voids often, sometimes to make sure she does not leak and sometimes with urgency. ?? Bladder Diary: The bladder diary was performed by the patient. 24hr UOP: 2,575 mL Functional Capacity: 350 mL Avg voided volume: 75-200 mL Frequency: q 20 min - 4 hrs Urinary Incont: 11 time(s)/day Nocturia: 0 time(s)/night Past Medical History: Diagnosis Date ??? Benign paroxysmal vertigo of both ears ??? Heartburn ??? Hypertension ??? PONV (postoperative nausea and vomiting) Past Surgical History: Procedure Laterality Date ??? CARPAL TUNNEL SURGERY ??? Cervical LEEP 1998 ??? Tonsillectomy ??? TUBAL LIGATION, LAPAROSCOPIC OB: OB History Para Term AB Living 2 2 2 2 SAB IAB Ectopic Multiple Live Births 2 # Outcome Date GA Lbr [place]/2nd Weight Sex Delivery Anes PTL Lv 2 Term ALVARO 1 Term ALVARO SALES EXECUTIVE: See above FAMILY HISTORY: Family History Problem Relation Name Age of Onset ??? Hypertension Mother ??? Osteoporosis Mother ??? High Cholesterol Mother ??? Hypertension Sister ??? CAD (Coronary Artery Disease) Sister ??? Cancer - Breast Sister ??? Hypertension Sister ??? CAD (Coronary Artery Disease) Sister ??? Hypertension Brother ??? CAD (Coronary Artery Disease) Brother ??? Hypertension Brother MEDICATIONS: No current facility-administered medications for this encounter. Current Outpatient Medications Medication Sig ??? acyclovir (Zovirax) 5 % ointment APPLY TOPICALLY TO THE AFFECTED AREA 6 TIMES PER DAY EVERY 3 HOURS FOR 4 DAYS ??? cyclobenzaprine (Flexeril) 10 MG tablet Take 1 (one) tablet by mouth once daily ??? estradiol (Estrace) 0.1 MG/GM vaginal cream Insert 1g into the vagina nightly for 1 week. Then insert 1g into the vagina two times a week thereafter. ??? Flaxseed, Linseed, (Flax Seed Oil) 1300 MG Take 1 tablet by mouth once daily ??? L-Lysine HCl 500 MG Take 1 [...] (one) tablet by mouth 3 times daily ALLERGIES: Allergies Allergen Reactions ??? Lisinopril Cough ??? Codeine GI Discomfort Review of Systems: As noted above, all other systems are negative. Physical Exam: There were no vitals taken for this visit. Constitutional: General appearance: Well nourished, well developed female in no acute distress. Neuro: Normal mood and affect. Neck: Supple, normal appearance. Respiratory: Normal respiratory effort. Cardiovascular: No lower extremity edema. Skin: Warm and dry. ?? POP-Q- Aa / Ba / C: 0/0/-6 Gh / pb / tvl: 3/10 Ap / Bp / D: ??-1/-1/-8 ?? Laboratory Results: Urine dipstick: negative Assessment/Plan: Assessment: mixed urinary incontinence, stress incontinence, cystocele and rectocele The patient is scheduled to undergo: Anterior colporrhaphy, midurethral sling, cystourethroscopy, posterior colporrhaphy, and perineorrhaphy Perioperative antibiotics type and dose: Ancef Allergies: Lisinopril, Codeine Preoperative surgical Optimization obtained Added. Any specific recommendations: Has seen cardiology, Dr. Patel, see note. Yes, EKG, reviewed by Dr. Merchant and patient is cleared. VTE prophylaxis: none Counseling was performed in the outpatient setting by Dr. Winn. Risks, benefits and alternatives were discussed in the office; please see that chart for details. Raúl Sparks MD 03/22/2023 10:27 AM Patient seen and examined. Resident note reviewed and discussed. Proceed with Anterior colporrhaphy, midurethral sling, cystourethroscopy, posterior colporrhaphy, and perineorrhaphy. Anette Winn MD documented in this encounter OR Notes * Brief Op Note - Raúl Sparks MD - 03/27/2023 8:08 AM CDT Brief Post-Operative Note 03/27/2023 Bhumi Fong Date of Surgery: 03/27/2023 Surgeon(s) and Role: * Anette Winn MD - Primary * Raúl Sparks MD - Resident - Assisting Anesthesiologist: Sky Merchant DO GUEST SERVICE SUPERVISOR: Joanne Dahl APRN-GUEST SERVICE SUPERVISOR; Angel Avila APRN-GUEST SERVICE SUPERVISOR Pre-Op Diagnosis Codes: * Diagnosis unknown [R69] Postoperative Diagnosis: same as above, cystocele, rectocele Procedure(s) and Anesthesia Type: * ANTERIOR / POSTERIOR COLPORRHAPHY - General * MIDURETHRAL SLING, PERINEORRHAPHY, CYSTOSCOPY - General Findings: As expected Disposition: PACU, home Status: Stable Drains: none, mckeon catheter Pack: none Complications: none EBL: 150 mL Specimen(s): * No specimens in log * Implant(s): Implant Name Type Inv. Item Serial No. Claims Adjudicator Lot No. LRB No. Used Action Sys Ureth Supp Ha Adv Trnvg Midurethral Sys Ureth Supp Ha Adv Trnvg Midurethral [employer] [id number]/A 1 Implanted Operative note dictated: no * Operative - Anette Winn MD - 03/27/2023 8:08 AM CDT Operative Note - [facility] Patient:Bhumi Fong Date of : 1955 Date of Procedure: 03/27/2023 Surgeon: Anette Winn MD Attending: Anette Winn MD Gas Plant Technician: Raúl Sparks MD Preoperative diagnosis: stress urinary incontinence, cystocele, rectocele Postoperative diagnosis: same Indications: This is a 68 year old female with stress urinary incontinence, cystocele, and rectocele, Stage 2. Various options for management were discussed with the patient preoperatively and she elects to undergo surgical therapy via a vaginal approach. Risks, benefits, expectations and alternatives were discussed with the patient preoperatively. All her questions were answered and written informed consent was obtained. Findings: Vaginal exam at the start of procedure, there was a cystocele, and rectocele, Stage 2. The cervix appeared grossly normal with no lesions. Cystourethroscopy at the end of the procedure, there was intact bladder and urethra with efflux seen from each of the bilateral ureteral orifices. There was no evidence of bladder or urethral injury with no bladder masses or lesions visualized. No suture was visible in the bladder. Vaginal exam at the end of the procedure revealed excellent apical, anterior and posterior support with 2-3 fingerbreadths caliber and greater than 7 cm total vaginal length without any undue tension. Rectovaginal exam at the end of the procedure revealed no suture palpable in the rectal cavity withno undue tension on the rectal tissues and no masses palpated. Anesthesia: General Procedures performed: ANTERIOR AND POSTERIOR COLPORRHAPHY, PERINEORRHAPHY, MIDURETHRAL SLING, CYSTOURETHROSCOPY Operative Note: The patient was taken to the OR where anesthesia was administered. Preoperative antibiotics were administered as indicated. She was prepped and draped in the normal sterile fashion in the dorsal lithotomy position in the [facility]. Care was taken upon positioning to avoid any areas of extreme flexion or extension. A timeout was performed. SCDs were noted to be in place and functioning. A transurethral Mckeon catheter was placed in the bladder and the bladder was drained. A lone star perineal retractor was placed with hooks at the level of the hymenal ring. The anterior vaginal wall was grasped in the midline with Allis clamps at the level of vaginal cuffand the level of the bladder neck and the anterior vaginal epithelium intervening between the two Allis clamps was infiltrated with local anesthetic. The epithelium was incised and then the underlying fibromuscular tissue was dissected away from the vaginal epithelium with the Metzenbaum scissors. The entirety of the cystocele was exposed with sharp dissection to the level of the pubic rami bilaterally. The dissection bed was noted to be hemostatic with the use of electrocautery. The cystocele was then serially reduced with vertical mattress stitches of 2-0 PDS in 2 layers. Once the entirety of the cystocele was reduced, the excess vaginal epithelium was trimmed and reapproximated with interrupted and running locked stitches of 3-0 vicryl. The level of the midurethra was palpated and Allis clamps utilized to grasp the overlying vaginal epithelium. The vaginal epithelium was infiltrated with local anesthetic, incised in the midline witha scalpel performing a 1 cm vertical incision and the vaginal epithelial edges were retracted laterally. The underlying fibromuscular tissue was dissected sharply from the epithelial edges. A tunnel was made on either side of the urethra with Metzenbaum scissors to the level of the endopelvic fascia. The sling trocar was advanced into the right- hand tunnel and passed through the retropubic space,exiting via a stab incision made in the skin at the abdominal wall 1-1/2 fingerbreadths from the midline at the level of the pubic symphysis. The same was performed on the left-hand side, where the trocar was advanced through the tunnel into the retropubic space and exited via a stab incision 1-1/2fingerbreadths from the midline on the left-hand side of the abdomen at the level of the pubic symphysis. The vaginal epithelial edges were inspected to note no evidence of vaginotomy. With the trocars in the retropubic space, the Mckeon catheter was removed. A 17 togolese 70 degree cystoscope was inserted and cystourethroscopy was performed. The ureteral orifices were visualized withspillage of clear urine seen from both ureters. There was no evidence of bladder or urethral injuryand no stitches visible within the bladder. No bladder masses or lesions. The cystoscope was removed, the Mckeon catheter was reinserted and the bladder was drained. The mesh sling was advanced while utilizing forceps as a spacer. The mesh was noted to lay flatly beneath the urethra in a tension free fashion. The excess mesh was trimmed at the level of the abdomen. The abdominal skin was closed with surgical skin adhesive. The vaginal epithelial edges were reapproximated with 3-0 Vicryl in interrupted stitches. Attention was turned to the posterior vaginal wall and the most prominent portion of the posterior vaginal epithelium that was prolapsing was grasped with Allis clamps along the midline. The vaginal epithelium was infiltrated with local anesthetic. The midline of the vaginal epithelium at the posterior vaginal wall was incised with a 15-blade along the length of the entire rectocele to the level of the perineum. A bernadine-shaped wedge of perineal tissue was also incised at the midline. The vaginal epithelial edges were retracted laterally and the underlying fibromuscular tissues were sharply dissected off the epithelial edges with Metzenbaum scissors. The entirety of the rectocele was dissected sharply and then serially reduced with 2-0 PDS suture using vertical mattress stitches in 2 layers. The vaginal caliber was examined after each layer, noting a 2-3 fingerbreadth vaginal caliber. The level of the perineal body was reapproximated with three stitches of 0-Vicryl. Rectovaginal examwas performed, noting good perineal body bulk and no areas of stepoff within the vagina, with a built-up rectovaginal septum, smoothly leading to a built-up perineal body. There was no interruption of the rectal mucosa. The repair was inspected and excellent hemostasis was noted with the use of electrocautery and figure of eight stitches of 3-0 Vicryl. The vaginal epithelium was trimmed and reapproximated with running locked and interrupted stitches of 3-0 Vicryl. The vagina was irrigated and examined. All other instrumentation was removed from the vagina. The patient tolerated the procedure well. Sponge, lap, and needle counts were correct x2. The patient wastaken out of dorsal lithotomy position and then awakened from anesthesia. She was transferred to the recovery room awake, alert, and breathing independently in stable condition. A transurethral Foleycatheter remained in the bladder at the end of the procedure so the patient may undergo a postoperative void trial. Fluids: 2,100 ml Estimated blood loss: 150 ml Urine output: 800 ml Drains: transurethral catheter Specimens: * No specimens in log * Implant: Implant Name Type Inv. Item Serial No. Claims Adjudicator Lot No. LRB No. Used Action Sys Ureth Supp Ha Adv Trnvg Midurethral Sys Ureth Supp Ha Adv Trnvg Midurethral [employer] [id number]/A 1 Implanted Complications: none Disposition: stable documented in this encounter Plan of Treatment Not on file documented as of this encounter Procedures Procedure Name Priority Date/Time Associated Diagnosis Comments CARDIAC EKG ORDER 03/29/2023 7:5 8 PM CDT APHERESIS/TRANSFUSIO N ORDER 03/29/2023 7:58 PM CDT CARDIAC RHYTHM STRIP ORDER 03/29/2023 7:57 PM CDT BLOOD TYPE VERIFICATION Routine 03/27/2023 6:40 AM CDT Pre-op testing PA SLING OPER STRES INCONTINENCE 03/27/2023 6:35 AM CDT Diagnosis unknown Special Needs NEEDS TVT EXACT SLING KIT COLPORRHAPHY ANTERIOR/POSTERIOR REPAIR 03/27/2023 6:35 AM CDT Diagnosis unknown Special Needs NEEDS TVT EXACT SLING KIT documented in this encounter Results * CARDIAC EKG ORDER (03/29/2023 7:58 PM [...] Scanned Document CARDIAC SERVICES ORD ERABLES * BLOOD TYPE VERIFICATION (03/27/2023 6:40 AM CDT) ABO Rh A NEG 03/27/2023 7:1 4 AM CDT [facility] Blood Bank BLOOD SPECIMEN / Unknown Venipuncture / Unknown 03/27/2023 6:40 AM CDT 03/27/2023 6:44 AM CDT Sky Merchant DO LAB - BLOOD BANK ORD ERABLES [facility] [address] [phone] documented in this encounter Visit Diagnoses Diagnosis Pre-op testing- Primary Preoperative examination, unspecified Stress incontinence of urine documented in this encounter Administered Medications Inactive Administered Medications - up to 3 most recent administrations Medication Order MAR Action Action Date Dose Rate Site 0.9% NaCl injection 1-10 mL 1-10 mL, Intracatheter, PRN, Other, peripheral line flush, Starting on Sun03/27/23 at 0615, Until Sun03/27/23 at 2020, Flush peripheral IV catheter with 1-10 mL of normal saline before and after medications and prn to clear blood from the line or to verify patency., Pre-op 0.9% NaCl injection 3 mL 3 mL, Intracatheter, EVERY 8 HOURS, First dose on Sun03/27/23 at 0630, Until Discontinued, Flush peripheral IV catheter with 3 mL of normal saline every 8 hours., Pre-op acetaminophen (Tylenol) tablet 1,000 mg 1,000 mg, Oral, ONCE, 1 dose, On Sun03/27/23 at 0645, Patient preference for lesser PRN pain meds may be honored when the patient requests a less strong medication, a lower dose, or a less intrusive route of administration when the lesser drug, dose and route have been ordered for the patient. This patient request must be documented in the MAR., Pre-op $ Given 03/27/2023 6:41 AM CDT 1,000 mg dextrose 5 % and lactated ringers infusion at 100 mL/hr, Intravenous, CONTINUOUS, Starting on Sun03/27/23 at 1615, Until Sun03/27/23 at 2020, Post-op $ New Bag/Syringe 03/27/2023 3:38 PM CDT 100 mL/hr diphenhydrAMINE (Benadryl) injection 25 mg 25 mg, Intravenous, ONCE PRN, Nausea/Vomiting, 1 dose, Starting on Sun03/27/23 at 1253, Until Sun03/27/23 at 2020, Second choice, use if first choice was ineffective., PACU fentaNYL (PF) (Sublimaze) injection 50 mcg 50 mcg, Intravenous, EVERY 10 MIN PRN, Mild Pain, 4 doses, Starting on Sun03/27/23 at 1253, Until Sun03/27/23 at 2020, Maximum total of 4 doses. If patient reaches max total dose, please consult anesthesiologist prior to further administration of pain meds. Hold pain meds if there are signs of hypoventilation. Patient preference for lesser PRN pain meds may be honored when the patient requests a less strong medication, a lower dose, or a less intrusive route of administration when the lesser drug, dose and route have been ordered for the patient. This patient request must be documented in the MAR., PACU HYDROmorphone (Dilaudid) injection 0.5 mg 0.5 mg, Intravenous, EVERY 10 MIN PRN, Severe Pain, 4 doses, Starting on Sun03/27/23 at 1253, Until Sun03/27/23 at 2020, Maximum total of 4 doses If patient reaches max total dose, please consult anesthesiologist prior to further administration of pain meds. Hold pain meds if there are signs of hypoventilation. Patient preference for lesser PRN pain meds may be honored when the patient requests a less strong medication, a lower dose, or a less intrusive route of administration when the lesser drug, dose and route have been ordered for the patient. This patient request must be documented in the MAR., PACU lactated ringers infusion at 20 mL/hr, Intravenous, PRE-OP CONTINUOUS, Starting on Sun03/27/23 at 0630, Until Sun03/27/23 at 2020, Pre-op $ New Bag/Syringe 03/27/2023 12:33 PM CDT 20 mL/hr $ New Bag/Syringe 03/27/2023 8:35 AM CDT 20 mL/ hr $ New Bag/Syringe 03/27/2023 6:42 AM CDT 20 mL/ hr lactated ringers infusion at 125 mL/hr, Intravenous, CONTINUOUS, Starting on Sun03/27/23 at 1300, Until Sun03/27/23 at 2020, PACU lidocaine PF (Xylocaine MPF) 1 % injection 0.2 mL 0.2 mL, Infiltration, PRE-OP MULTIPLE, 3 doses, Starting on Sun03/27/23 at 0616, Until Sun03/27/23 at 2020, May be used (0.2 ml locally to anesthetize prior to insertion)., Pre-op $ Given 03/27/2023 6:42 AM CDT 0.2 mL naloxone (Narcan) injection 0.04 mg 0.04 mg, Intravenous, POST-OP MULTIPLE, Starting on Sun03/27/23 at 1253, Until Sun03/27/23 at 2020, Notify physician immediately, and mix 0.4 mg Naloxone in 9 mL Normal Saline for slow IV push. Administer dilute Naloxone solution IV very slowly (1 mL over 30 seconds) while observing the patient response and titrating to effect. If no response, call Rapid Response, continue IV Naloxone at the same rate up to a total of 0.8 mg of diluted Naloxone., PACU ondansetron (Zofran) injection 4 mg 4 mg, Intravenous, ONCE PRN, Nausea/Vomiting, 1 dose, Starting on Sun03/27/23 at 1253, Until Sun03/27/23 at 1526, First choice, PACU $ Given 03/27/2023 3:26 PM CDT 4 mg scopolamine (Transderm-Scop) 1 patch 1 patch, Administer over 72 Hours, ONCE, 1 dose, On Sun03/27/23 at 0645, For patients less than 60 years old, without glaucoma, and with a positive history of Post Operative Nausea and Vomiting. Each patch contains 1.5 mg scopolamine base and is formulated to deliver 1 mg of scopolamine over 72 hours. $ Applied 03/27/2023 6:41 AM CDT 1 patch Behind Left Ear scopolamine patch placement confirmation Transdermal, 2 TIMES DAILY, 7 doses, First dose on Sun03/27/23 at 0900, Last dose on Sun03/30/23 at 0900, Patient has a patch to be confirmed on transition to inpatient and 2 times daily., Pre-op documented in this encounter Active and Recently Administered Medications Times are shown in CDT. Scheduled Medication Order 03/25/2023 03/26/2023 03/27/2023 0.9% NaCl injection 3 mL(Linked Group 1) 3 mL, Intracatheter, EVERY 8 HOURS, First dose on Sun03/27/23 at 0630, Until Discontinued, Flush peripheral IV catheter with 3 mL of normal saline every 8 hours., Pre-op 0630 (Due)1400 (Due) acetaminophen (Tylenol) tablet 1,000 mg (COMPLETED) 1,000 mg, Oral, ONCE, 1 dose, On Sun03/27/23 at 0645, Patient preference for lesser PRN pain meds may be honored when the patient requests a less strong medication, a lower dose, or a less intrusive route of administration when the lesser drug, dose and route have been ordered for the patient. This patient request must be documented in the MAR., Pre-op 0641 ($ Given - Prov ider: Farzana Conde RN) ceFAZolin (Ancef) 2 g in 0.9% NaCl IV 50 mL IVPB (COMPLETED) 2 g, at 100 mL/hr, Intravenous, ONCE, [...] Indication for anti-infective therapy: Surgical prophylaxis, Pre-op 0744 ($ New Bag/Syri nge - Provider: EVERT Faye)1153 ($ Bolus New Bag - Provider: EVERT Faye) insulin regular human (HumuLIN R; NovoLIN R) 100 UNIT/ML injection 0-6 Units 0-6 Units, Intravenous, ONCE, 1 dose, On Sun03/27/23 at 1300, POC Glucose Regular Insulin Dose 0 - 180 mg/dL = 0 units 181 - 220 mg/dL = 3 units 221 - 260 mg/dL = 4 units 261 - 300 mg/dL = 5 units Above 300 mg/dL = 6 units . WASTE DISPOSAL INSTRUCTIONS: Black Bin Disposal required., PACU 1300 (Due) lidocaine PF (Xylocaine MPF) 1 % injection 0.2 mL 0.2 mL, Infiltration, PRE-OP MULTIPLE, 3 doses, Starting on Sun03/27/23 at 0616, Until Sun03/27/23 at 2020, May be used (0.2 ml locally to anesthetize prior to insertion)., Pre-op 0642 ($ Given - Prov ider: Farzana Conde RN) naloxone (Narcan) injection 0.04 mg 0.04 mg, Intravenous, POST-OP MULTIPLE, Starting on Sun03/27/23 at 1253, Until Sun03/27/23 at 2020, Notify physician immediately, and mix 0.4 mg Naloxone in 9 mL Normal Saline for slow IV push. Administer dilute Naloxone solution IV very slowly (1 mL over 30 seconds) while observing the patient response and titrating to effect. If no response, call Rapid Response, continue IV Naloxone at the same rate up to a total of 0.8 mg of diluted Naloxone., PACU scopolamine (Transderm-Scop) 1 patch(Linked Group 2) 1 patch, Administer over 72 Hours, ONCE, 1 dose, On Sun03/27/23 at 0645, For patients less than 60 years old, without glaucoma, and with a positive history of Post Operative Nausea and Vomiting. Each patch contains 1.5 mg scopolamine base and is formulated to deliver 1 mg of scopolamine over 72 hours. 0641 ($ Applied - Pr ovider: Farzana Conde RN)1920 (Due: Removed - Provider: Generic, Auto Release - Comment: Time automatically adjusted from order being discontinued) scopolamine patch placement confirmation(Linked Group 2) Transdermal, 2 TIMES DAILY, 7 doses, First dose on Sun03/27/23 at 0900, Last dose on Sun03/30/23 at 0900, Patient has a patch to be confirmed on transition to inpatient and 2 times daily., Pre-op 0900 (Due) Continuous Medication Order 03/25/2023 03/26/2023 03/27/2023 dextrose 5 % and lactated ringers infusion at 100 mL/hr, Intravenous, CONTINUOUS, Starting on Sun03/27/23 at 1615, Until Sun03/27/23 at 2020, Post-op 1538 ($ New Bag/Syri nge - Provider: Shaunna Bruks RN) lactated ringers infusion at 20 mL/hr, Intravenous, PRE-OP CONTINUOUS, Starting on Sun03/27/23 at 0630, Until Sun03/27/23 at 2020, Pre-op 0642 ($ New Bag/Syri nge - Provider: Farzana Conde RN)0835 ($ New Bag/Syringe - Provider: Angel Avila APRN-GUEST SERVICE SUPERVISOR)1233 ($ New Bag/Syringe - Provider: Angel Avila APRN-GUEST SERVICE SUPERVISOR) lactated ringers infusion at 125 mL/hr, Intravenous, CONTINUOUS, Starting on Sun03/27/23 at 1300, Until Sun03/27/23 at 2020, PACU 1300 (Due) PRN Medication Order 03/25/2023 03/26/2023 03/27/2023 0.9% NaCl injection 1-10 mL(Linked Group 1) 1-10 mL, Intracatheter, PRN, Other, peripheral line flush, Starting on Sun03/27/23 at 0615, Until Sun03/27/23 at 202, Flush peripheral IV catheter with 1-10 mL of normal saline before and after medications and prn to clear blood from the line or to verify patency., Pre-op 0.9% NaCl injection (CANCELED) PRN, Starting on Sun03/27/23 at 0837, Until Sun03/27/23 at 1251, Intra-op 0837 ($ Given - Prov ider: Anette Winn MD - Comment: mixed with marcaine 0.75% with epinepherine 30 ml total mix used: 44 ml) 0.9% NaCl irrigation (SO) solution (CANCELED) PRN, Starting on Sun03/27/23 at 0839, Until Sun03/27/23 at 1251, Intra-op 0839 ($ Given - Prov ider: Anette Winn MD - Comment: cystoscopy) 0.9% nacl irrigation solution (COMPLETED) CONTINUOUS PRN, Starting on Sun03/27/23 at 0838, Until Sun03/27/23 at 1251, Intra-op 0838 ($ New Bag/Syri nge - Provider: Anette Winn MD - Comment: post op clean up) BUPivacaine 0.75% - EPINEPHrine 1:200,000 (PF) injection (CANCELED) PRN, Starting on Sun03/27/23 at 0840, Until Sun03/27/23 at 1251, Intra-op 0840 ($ Given - Prov ider: Anette Winn MD - Comment: mixed with injectable saline 30 ml total mix used: 44 ml) diphenhydrAMINE (Benadryl) injection 25 mg 25 mg, Intravenous, ONCE PRN, Nausea/Vomiting, 1 dose, Starting on Sun03/27/23 at 1253, Until Sun03/27/23 at 2020, Second choice, use if first choice was ineffective., PACU fentaNYL (PF) (Sublimaze) injection 50 mcg 50 mcg, Intravenous, EVERY 10 MIN PRN, Mild Pain, 4 doses, Starting on Sun03/27/23 at 1253, Until Sun03/27/23 at 2020, Maximum total of 4 doses. If patient reaches max total dose, please consult anesthesiologist prior to further administration of pain meds. Hold pain meds if there are signs of hypoventilation. Patient preference for lesser PRN pain meds may be honored when the patient requests a less strong medication, a lower dose, or a less intrusive route of administration when the lesser drug, dose and route have been ordered for the patient. This patient request must be documented in the MAR., PACU HYDROmorphone (Dilaudid) injection 0.5 mg 0.5 mg, Intravenous, EVERY 10 MIN PRN, Severe Pain, 4 doses, Starting on Sun03/27/23 at 1253, Until Sun03/27/23 at 2020, Maximum total of 4 doses If patient reaches max total dose, please consult anesthesiologist prior to further administration of pain meds. Hold pain meds if there are signs of hypoventilation. Patient preference for lesser PRN pain meds may be honored when the patient requests a less strong medication, a lower dose, or a less intrusive route of administration when the lesser drug, dose and route have been ordered for the patient. This patient request must be documented in the MAR., PACU ibuprofen (Motrin) tablet 600 mg 600 mg, Oral, EVERY 6 HOURS PRN, Mild Pain, Starting on Sun03/27/23 at 1309, Until Sun03/27/23 at 2020, Not to exceed 3200 mg in daily from all sources. Patient preference for lesser PRN pain meds may be honored when the patient requests a less strong medication, a lower dose, or a less intrusive route of administration when the lesser drug, dose and route have been ordered for the patient. This patient request must be documented in the MAR., Post-op ondansetron (Zofran) injection 4 mg (COMPLETED) 4 mg, Intravenous, ONCE PRN, Nausea/Vomiting, 1 dose, Starting on Sun03/27/23 at 1253, Until Sun03/27/23 at 1526, First choice, PACU 1526 ($ Given - Prov ider: Shaunna Burks RN) oxyCODONE-acetaminophen (Percocet) 5-325 MG tablet 1 tablet 1 tablet, Oral, EVERY 4 HOURS PRN, Moderate Pain, Starting on Sun03/27/23 at 1309, Until Sun03/27/23 at 2020, Patient preference for lesser PRN pain meds may be honored when the patient requests a less strong medication, a lower dose, or a less intrusive route of administration when the lesser drug, dose and route have been ordered for the patient. This patient request must be documented in the MAR., Post-op Linked Groups Order Group 1: SALINE LOCK, INSERT AND MAINTAIN (CANCELED) Routine, CONTINUOUS, Starting on Sun03/27/23 at 0630, Until Specified, Pre-op, New collection And 0.9% NaCl injection 3 mLJump to med 3 mL, Intracatheter, EVERY 8 HOURS, First dose on Sun03/27/23 at 0630, Until Discontinued, Flush peripheral IV catheter with 3 mL of normal saline every 8 hours., Pre-op And 0.9% NaCl injection 1-10 mLJump to med 1-10 mL, Intracatheter, PRN, Other, peripheral line flush, Starting on Sun03/27/23 at 0615, Until Sun03/27/23 at 2020, Flush peripheral IV catheter with 1-10 mL of normal saline before and after medications and prn to clear blood from the line or to verify patency., Pre-op Group 2: scopolamine (Transderm-Scop) 1 patchJump to med 1 patch, Administer over 72 Hours, ONCE, 1 dose, On Sun03/27/23 at 0645, For patients less than 60 years old, without glaucoma, and with a positive history of Post Operative Nausea and Vomiting. Each patch contains 1.5 mg scopolamine base and is formulated to deliver 1 mg of scopolamine over 72 hours. And scopolamine patch placement confirmationJump to med Transdermal, 2 TIMES DAILY, 7 doses, First dose on Sun03/27/23 at 0900, Last dose on Sun03/30/23 at 0900, Patient has a patch to be confirmed on transition to inpatient and 2 times daily., Pre-op documented in this encounter Care Teams Assistant Casino Shift Manager Relationship Specialty Start Date End Date Arabella Pop, BOOK AUTHOR-QUALITY TESTER [address] [id number] PCP - General 11/01/22 documented as of this encounter
--- OUTSIDE RECORDS SUMMARY | 2024-07-26 17:56 | XMS_ITS | Encounter Summary ---
Author Organization [facility] Address [address] [place] [address] Care Team Providers Care Talent Acquisition Operations Manager Name Role Phone Arabella Pop Issac MACK-COOK APPRENTICE Primary Care Provider Reason for Referral * Cardiac (Routine) - Closed Specialty Diagnoses / Procedures Referred By Contac t Referred To Contact Cardiology Diagnoses Abnormal EKG Procedures ECHO TRANSTHORACIC MN TTE W/DOPPLER, COMPLETE MN TTE W/O DOPPLER, COMPLETE Stephenie Patel DO [address] [place] [address] [address] [place] [address] [facility] Echo Cv [address] [place] [address] Referral ID Status Reason Start Date Expiration Date Visits Re quested Visits Authorized [id number] Closed 03/22/2023 03/21/2024 1 1 * Procedure (Routine) - Closed Specialty Diagnoses / Procedures Referred By Contac t Referred To Contact Cardiology Diagnoses Abnormal EKG Procedures EKG 12-LEAD Stephenie Patel DO [address] [place], [place] [address] [address] [place] [address] Referral ID Status Reason Start Date Expiration Date Visits Re quested Visits Authorized [id number] Closed 03/22/2023 03/21/2024 1 1 Reason for Visit * Reason Comments Establish Care Abnormal ekg, pre op clearance * Evaluate & Treat (Routine) - Closed Specialty Diagnoses / Procedures Referred By Contingris t Referred To Contact Cardiology Diagnoses Abnormal EKG Anette Winn MD [address] [place] [address] [facility] [address], [address] [place] [address] Referral ID Status Reason Start Date Expiration Date V isits Requested Visits Authorized [id number] Closed Specialty Services Required 03/21/2023 03/20/2024 1 1 Encounter Details Date Type Department Care Team (Late st Contact Info) Description 03/22/2023 10:00 AM CDT Office Visit [facility] [address] [place] [address] [address] [place] [address] Anette Winn MD [address] [place] [address] Stephenie Patel DO [address] [facility] [address] [place] [address] Abnormal EKG (Primary Dx); Primary [...] Reading Time Taken Comments Blood Pressure 148/78 03/22/2023 10:11 AM CDT Pulse 86 03/22/2023 10:11 AM CDT Temperature 36.7 ??C (98 ??F) 03/22/2023 10:11 AM CDT Respiratory Rate - - Oxygen Saturation - - Inhaled Oxygen Concentration - - Weight 81.2 kg (179 lb) 03/22/2023 10:11 AM CDT Height - - Body Mass Index 32.74 03/20/2023 9:15 AM CDT documented in this encounter Progress Notes * Stephenie Patel, DO - 03/22/2023 10:25 AM CDT Bhumi Fong : 1955 Age: [age] year old [facility] Cardiology Consultation Date of Consult: 03/22/2023 Patient's Primary Care Physician: Arabella Pop APRN-[facility] Physician Requesting Consult: Anette Winn MD Indication for Consultation: Chief Complaint Patient presents with ??? Establish Care Abnormal ekg, pre op clearance History of Present Illness: Bhumi Fong is a/an 68 year old f with HTN, HLD (not on statin). She is not diabetic. No prior vascular disease. Blood pressure has been fairly well controlled by chart review although mildly elevated today. Was referred to Cardiology after preop ECG showed poor R-wave progression and left axis. She is able to perform significant amount a activity on a daily basis, greater than 4 Mets without symptoms. She has no prior diagnosis of infarct. Heart failure. She has no exertional symptoms. No orthopnea PND. No edema. She does not smoke. She does have family history of coronary disease--2 sisters and 1 brother with bypass and stents in their early 60s. Allergies Allergen Reactions ??? Lisinopril Cough ??? Codeine GI Discomfort Medications: Outpatient Medications Marked as Taking for the 03/22/23 encounter (Office Visit) with Stephenie Patel, DO Medication Sig ??? acyclovir (Zovirax) 5 % [...] (one) tablet by mouth 3 times daily Past Medical History: Past Medical History: Diagnosis Date ??? Benign paroxysmal vertigo of both ears ??? Heartburn ??? Hypertension ??? PONV (postoperative nausea and vomiting) Past Surgical History: Procedure Laterality Date ??? CARPAL TUNNEL SURGERY ??? Cervical LEEP 1998 ??? Tonsillectomy ??? TUBAL LIGATION, LAPAROSCOPIC Patient Active Problem List: Benign positional vertigo Carpal tunnel syndrome of right wrist Cervical cancer screening Depression DJD (degenerative joint disease) Elevated liver function tests GERD (gastroesophageal reflux disease) Hypercholesterolemia Hyperlipidemia Hypertension Low back pain radiating to both legs Neuropathy of right hand Right arm pain Superficial thrombophlebitis SVT (supraventricular tachycardia) (CMS/HCC) Urinary incontinence Family History: Family History Problem Relation Name Age of Onset ??? Hypertension Mother ??? Osteoporosis Mother ??? High Cholesterol Mother ??? Hypertension Sister ??? CAD (Coronary Artery Disease) Sister ??? Cancer - Breast Sister ??? Hypertension Sister ??? CAD (Coronary Artery Disease) Sister ??? Hypertension Brother ??? CAD (Coronary Artery Disease) Brother ??? Hypertension Brother Social History: Social History Socioeconomic History ??? Marital status: Spouse name: Not on file ??? Number of children: Not on file ??? Years of education: Not on file ??? Highest education level: Not on file Occupational History ??? Not on file Tobacco Use ??? Smoking status: Never Passive exposure: Never ??? Smokeless tobacco: Never Vaping Use ??? Vaping Use: Never used Substance and Sexual Activity ??? Alcohol use: Not Currently ??? Drug use: Never ??? Sexual activity: Yes Partners: Male control/protection: Tubal ligation Other Topics Concern ??? Not on file Social History Narrative ??? Not on file Social Determinants of Health Financial Resource Strain: Not on file Food Insecurity: Not on file Transportation Needs: Not on file Stress: Not on file Housing Stability: Not on file Review of Systems: No TIA, CVA or seizures. No dizziness or syncope or falls. No recent change in vision or hearing. No fever, chills, or arthralgias. No cough. No diarrhea or constipation. No GI bleed, ulcers or reflux. No abdominal pain. No thyroid disease. As above, all others systems negative. Physical exam: Vitals: 03/22/23 1011 BP: 148/78 Pulse: 86 Temp: 98 ??F (36.7 ??C) Weight: 81.2 kg (179 lb) Constitutional: Pleasant, well appearing in no distress. Skin: Warm, dry. No rashes in visible areas Eye: Conjunctiva clear. Pupil equal round and reactive ENMT: Lips without lesion. Good dentition. Oropharynx clear Neck: Trachea midline. No masses. JVP<8cm, no bruits, no thyromegaly Respiratory: Lungs clear b/l with no rales or wheezing. Unlabored. Cardiovascular: RRR, s1s2nl, no murmurs. No edema. Abdomen: Soft abd, non-tender, normal bowel sounds, no masses. No HSM. Psych: Alert, oriented to person, place, time. Normal affect Data: Recent Labs Component Name 03/20/23 0911 WBC 4.9 HGB 14.3 HCT 43.5 PLTCOUNT 211 Recent Labs Component Name 03/20/23 0911 SODIUM 139 POTASSIUM 3.9 BUN 12 CREATININE 0.79 GLUCOSE 99 No results for input(s): BNP in the last 93669 hours. No results for input(s): TROPONIN in the last 30334 hours. No results for input(s): MAGMGDL in the last 94533 hours. No results for input(s): LDLCALC, HDL, TRIG in the last 51825 hours. No results for input(s): TSH in the last 48893 hours. No results for input(s): INR in the last 33108 hours. The ASCVD Risk score (Eduar SCALES, et al., 2019) failed to calculate for the following reasons: Cannot find a previous HDL lab Cannot find a previous total cholesterol lab Impression: ICD-10-CM 1. Abnormal EKG R94.31 Ref to Cardiology -[facility] EKG 12-LEAD ECHO TRANSTHORACIC 2. Primary hypertension I10 3. Mixed hyperlipidemia E78.2 Plan: 1) ECG shows poor R-wave progression but no septal Q-wave. Cannot rule out prior anterior [place] but itis most likely secondary to lead placement. Has no symptoms to suggest angina heart failure. -will order echocardiogram but this will not limit her from proceeding with surgery--if abnormal, could consider further testing and med adjustment -she is relatively low risk for moderate risk procedure--no testing needed prior to surgery -would recommend further primary prevention measures which are dressed below 2) blood pressure is borderline. Would recommend that she keep home blood pressure reading log in order to further adjust meds at follow-up if needed -verapamil --managed by PCP. Atypical first-line antihypertensive. I would consider hydrochlorothiazide or even amlodipine over verapamil. Will forward note to PCP. -continue losartan 3) she has known history of hyperlipidemia although I do not have those labs. She is not interestedin statin therapy. Return in about 3 months (around 06/21/2023). Thank you for allowing me to participate in the care of your patient. Do not hesitate to call with question or concerns. Be advised that voice recognition software has been used on this chart and inadvertent errors may occur. These may not represent a true interpretation of the dictation given. Stephenie Patel DO [facility] [place] documented in this encounter Plan of Treatment Not on file documented as of this encounter Procedures Procedure Name Priority Date/Time Associated Diagnosis Comments EKG 12-LEAD Routine 03/22/2023 9:36 AM CDT Abnormal EKG documented in this encounter Results * ECHO COMPLETE (04/30/2023 9:35 AM CDT) BSA [id number] m2 [facility] CV FUJI PACS LVOT stroke [...] LA vol BP 29.753 mL SSM CV [facility] I PACS TR pk mary lou 271.7 cm/s [facility] CV [facility] I PACS LVOT pk mary lou 0.86 [...] vol BP A-L 31.229 [facility] S' mary lou 13.003 [facility] CV [facility] I PACS TAPSE 2.054 1.7 cm [facility] CV [facility] I PACS AV mn grad 3 mmHg SSM CV FU PACS AV pk grad 5 mmHg SSM CV FU PACS AV mn mary lou 0.77 m/s [facility] CV [facility] I PACS AV pk mary lou 1.10 m/s [facility] CV [facility] I PACS AV VTI 26.564 cm [facility] CV [facility] I PACS LVOT pk grad 2.975 mmHg [facility] LV[facility] VTI 23.391 cm [facility] CV [facility] I PACS AV area cont VTI 2.6 cm2 [facility] area pk mary lou 2.4 cm2 [facility] Doppler mary lou index pk mary lou 0.787 [facility] Dimensionless Index 0.881 [facility] MV PHT 67 ms [facility] CV [facility] I PACS MV area PHT 3.29 cm2 [facility] CV F UJI PACS MV decel slope 312.169 cm/s2 [facility] TR pk grad 30 mmHg S[facility] CV FU JI PACS MN pk mary lou 79.988 cm/s [facility] CV [facility] I PACS MN pk grad 3 mmHg SSM CV FU JI PACS PV pk mary lou 133.259 cm/s [facility] CV [facility] I PACS PV pk grad 7 mmHg [...] RA. Stephenie Patel DO ECHO CUPID * EKG 12-LEAD (03/22/2023 9:36 AM CDT) Ventricular Rate 74 BPM [facility] Atrial Rate 74 BPM [facility] P-R Interval 132 ms [facility] QRS Duration ms 72 ms [facility] Q-T Interval ms 402 ms [facility] QTC Calculation (Bezet) 446 ms [facility] Calculated P [place] 29 degrees [facility] Calculated R [place] -7 degrees [facility] Calculated T [place] 15 degrees [facility] Interpretation EKG NORMAL SINUS RHYTHM POSSIBLE ANTEROLATERAL INFARCT , AGE UNDETERMINED NONSPECIFIC T WAVE ABNORMALITY ABNORMAL ECG WHEN COMPARED WITH ECG OF 20-MAR-2023 09:24, NO SIGNIFICANT CHANGE WAS FOUND Confirmed by Nickolas Galicia MD ([id number]) on 03/22/2023 5:55:42 PM [facility] 03/22/2023 9:36 AM CDT 03/22/2023 5:55 PM CDT Stephenie Patel DO ECG ORDERABLES [facility] documented in this encounter Visit Diagnoses Diagnosis Abnormal EKG- Primary Nonspecific abnormal electrocardiogram (ECG) (EKG) Primary hypertension Unspecified essential hypertension Mixed hyperlipidemia Abnormal EKG Nonspecific abnormal electrocardiogram (ECG) (EKG) documented in this encounter Care Teams Talent Acquisition Operations Manager Relationship Specialty Start Date End Date Arabella Pop, FREDERICK-COOK APPRENTICE [address] [address] PCP - General 4/19/23 documented as of this encounter
--- OUTSIDE RECORDS SUMMARY | 2024-07-26 17:56 | XMS_ITS | Referral Summary ---
Author Organization [facility] Address [address] [place] [address] Care Team Providers Care News Video Editor Name Role Phone Arabella Pop FREDERICK-QUALITY ASSURANCE ASSESSOR Primary Care Provider Source Comments [facility],non-owned Affiliates and Associated Physician Practices is amultiple site organization consisting of ambulatory clinics and hospital sitesin [place], [place], [place] and [place]. This disclosure is being madepursuant to the Care Everywhere program and may not contain all information available regarding this patient. Last updated 18.[facility] Allergies Active Allergy Reactions Criticality Noted Date [...] than 140/90 return to clinic. Verbalizes understanding. Social History Tobacco Use Types Packs/Day Years [...] Comments Blood Pressure 158/98 06/25/2023 8:58 AM CIRCUIT MANAGER Pulse 80 06/25/2023 8:58 AM CIRCUIT MANAGER Temperature 36.7 ??C (98 ??F) 06/25/2023 8:58 AM CIRCUIT MANAGER Respiratory Rate 18 06/25/2023 8:58 AM CIRCUIT MANAGER Oxygen Saturation 95% 06/25/2023 8:58 AM CIRCUIT MANAGER Inhaled Oxygen Concentration - - Weight 82.8 kg (182 lb 9.6 oz) 06/25/2023 8:58 A M CIRCUIT MANAGER Height 157.5 cm (5' 2 ) 06/25/2023 8:58 AM CIRCUIT MANAGER Body Mass Index 33.4 06/25/2023 8:58 AM CIRCUIT MANAGER Plan of Treatment Not on file Medical Devices Implanted Type Area Environmental Property Assessor Device Identifier Shelf Expiration Date Model / Serial / Lot Sys Ureth Supp Ha Adv Trnvg Midurethral Implanted:Qty: 1 on 03/27/2023 by Anette Winn MD at [facility] N/A: Vagina Soundl.ly Oma 01/06/2026 [id number] / / [id number] Procedures Procedure Name Priority Date/Time Associated Diagnosis Comments BASIC METABOLIC PANEL (CALCIUM TOTAL) Pre-Op 03/20/2023 9:11 AM CDT Preoperative examination from Last 3 Months or Most Recently Relevant to Health Maintenance Results * (ABNORMAL) BASIC METABOLIC PANEL (CALCIUM TOTAL) (03/20/2023 9:11 AM CDT) Glucose 99 70 - 105 mg/dL 03/20/2023 9:[address] [facility] Sodium 139 136 - 145 mmol/L 03/20/2023 9:[address] [facility] Potassium 3.9 3.5 - 5.1 mmol/L 03/20/2023 9:[address] [facility] Chloride 103 98 - 107 mmol/L 03/20/2023 9:[address] [facility] CO2 24 22 - 29 mmol/L 03/20/2023 9:[address] [facility] Calcium 9.4 8.4 - 10.4 mg/dL 03/20/2023 9:[address] [facility] Anion Gap 12 6 - 16 mmol/L 03/20/2023 9:[address] [facility] BUN 12 7 - 26 mg/dL 03/20/2023 9:[address] [facility] Creatinine 0.79 0.57 - 1.11 mg/dL 03/20/2023 9:[address] [facility] eGFR by CKD-EPI 82(L) >=90 mL/min/1.7 3 m2 03/20/2023 9:[address] [facility] Blood BLOOD SPECIMEN / Unknown Venipuncture / Unknown 03/20/2023 9:11 AM CDT 03/20/2023 9:28 AM CDT Anette Winn MD LAB - CHEMISTRY ORD ERABLES [facility] [address] [place], [place] [id number] from Last 3 Months or Most Recently Relevant to Health Maintenance Care Teams News Video Editor Relationship Specialty Start Date End Date Arabella Pop, MANAGER FRENCH-QUALITY ASSURANCE ASSESSOR [address] [facility] [address] [place] [phone] PCP - General 11/01/22
--- OUTSIDE RECORDS SUMMARY | 2024-07-26 17:56 | XMS_ITS | Encounter Summary ---
Author Organization [facility] Address [address] [place] [address] Care Team Providers Care Oracle Wms Consultant Name Role Phone Arabella Pop FREDERICK-IT SERVICE TECHNICIAN Primary Care Provider Reason for Visit * Reason Onset Date Comments Appointment 03/28/2023 Encounter Details Date Type Department Care Team (Late st Contact Info) Description 03/28/2023 Telephone [facility] - CYANIDE POT HARDENER [address] [phone] Anette Winn MD [address] [place] [phone] Appointment Social History Tobacco Use Types Packs/Day Years [...] Telephone Encounter - Dalila Aguayo LPN - 03/28/2023 11:40 AM CDT ----- Message from Anette Winn MD sent at 03/28/2023 11:22 AM CDT ----- Regarding: voiding trial Pt failed her voiding trial after surgery yesterday and was discharged home with a mckeon catheter. Can you please call and schedule her for a repeat voiding trial at [facility] on Sunday? Thanks I called the patient - gave her an appt for Sunday as requested All are I agreement documented in this encounter Plan of Treatment Not on file documented as of this encounter Visit Diagnoses Not on filedocumented in this encounter Care Teams Oracle Wms Consultant Relationship Specialty Start Date End Date Arabella Pop, COMPENSATION BUSINESS PARTNER-IT SERVICE TECHNICIAN [address] [phone] PCP - General 11/01/22 documented as of this encounter
--- OUTSIDE RECORDS SUMMARY | 2024-07-26 17:56 | XMS_ITS | Encounter Summary ---
Author Organization [facility] Address [address] [place] [address] Care Team Providers Care Algebraist Name Role Phone Arabella Pop FREDERICK-DOCUMENTATION WRITER Primary Care Provider Reason for Visit * Reason Comments Post-Op Encounter Details Date Type Department Care Team (Late st Contact Info) Description 05/07/2023 10:45 AM CDT Office Visit [facility] - SECTION CHIEF [address] [phone] Anette Winn MD [address] [place] [address] Postop check (Primary Dx); OAB (overactive bladder); Vaginal adhesion Social History Tobacco Use Types Packs/Day Years [...] Sign Reading Time Taken Comments Blood Pressure 130/80 05/07/2023 10:47 AM CDT Pulse - - Temperature - - Respiratory Rate - - Oxygen Saturation - - Inhaled Oxygen Concentration - - Weight 82.2 kg (181 lb 3.2 oz) 05/07/2023 10:47 AM CDT Height 157.5 cm (5' 2.01 ) 05/07/2023 10:47 AM C DT Body Mass Index 33.13 05/07/2023 10:47 AM CDT documented in this encounter Patient Instructions * Patient Instructions* Anetet Winn MD - 05/07/2023 11:17 AM CDT Use the vaginal estrogen with the applicator in a circular motion in the vagina every other night until you return in 2 weeks. Call if any problems or concerns at . You can also ask the hogshead press operator to send me a message, and I or the nurses in Urogynecology Triage will respond when we can. If you need to send records or results to our office, our fax number is [phone]. documented in this encounter Progress Notes * Anette Winn MD - 05/07/2023 10:45 AM CDT Urogynecology and Pelvic Reconstructive Surgery Post-Operative Visit Referring Provider: No ref. provider found PCP: Arabella Pop APRN-JONNY Date of Service: 05/07/2023 History of Present Illness: Ms. Fong is a 68 year old female who presents for a post-op visit. Mixed Urinary Incontinence: ?? GEN>UUI > oxybutynin was ineffective??and made her urinary incontinence worse, she would like to hold onother medications for OAB at this time > discussed behavioral interventions including weight loss > bothered by urinary leakage with standing, unsure if it is with the act of standing or with urgency after she stands > pelvic floor physical therapy - continue > bladder diary reviewed Vaginal atrophy: vaginal estrogen Constipation: daily psyllium fiber - no improvement with the psyllium capsules. Will do a trial of miralax > recommend she get a colonoscopy 03/27/23: ANTERIOR AND POSTERIOR COLPORRHAPHY, PERINEORRHAPHY, MIDURETHRAL SLING, CYSTOURETHROSCOPY Interval History: Doing well after surgery. Denies pain, bleeding, urine leakage. Has some urinary urgency but no leakage. No GEN. Having regular BMs, taking a stool softener. Pathology: none Past Medical History: Past Medical History: Diagnosis [...] to lisinopril and codeine. PHYSICAL EXAM: BP 130/80 Ht 1.575 m (5' 2.01 ) Wt 82.2 kg (181 lb 3.2 oz) Abdomen: Nontender. Nondistended. Incisions healing well. Pelvic Examination: Performed in the dorsal lithotomy position Chaperoned by: Girma Kate Normal external genitalia. Normal vaginal epithelium. Vagina: Adhesions on the right side of [...] support: POP-Q- Aa / Ba / C: -3/-3/-7 Gh / pb / tvl: Ap / Bp / D: -3/-3/-8 Stress test: negative supine valsalva stress test. Assessment: ICD-10-CM 1. Postop check Z09 2. OAB (overactive bladder) N32.81 3. 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
--- OUTSIDE RECORDS SUMMARY | 2024-07-26 17:56 | XMS_ITS | Encounter Summary ---
Author Organization [facility] Address [address] [place] [address] Care Team Providers Care Advertising Manager Name Role Phone Arabella Pop APRN-JONNY Primary Care Provider Encounter Details Date Type Department Care Team (Latest Contact Info) Description 03/30/2023 Travel Social History Tobacco Use Types Packs/Day [...] on filedocumented in this encounter Care Teams Advertising Manager Relationship Specialty Start Date End Date Arabella Pop, FREDERICK-JONNY [address] [place] [phone] PCP - General 11/01/22 documented as of this encounter
--- OUTSIDE RECORDS SUMMARY | 2024-07-26 17:56 | XMS_ITS | Encounter Summary ---
Author Organization [facility] Address [address] [place] [address] Care Team Providers Care Grapple Operator Name Role Phone Arabella Pop COMIC ILLUSTRATOR-CABBAGE SALTER Primary Care Provider Reason for Visit * Auth/Cert (Routine) Specialty Diagnoses / Procedures Referred By Contac t Referred To Contact Diagnoses Diagnosis unknown Diagnosis unknown [R69] Procedures TX SLING OPER STRES INCONTINENCE TX COMBINED ANT/POST COLPORRHAPHY TX SLING OPER STRES INCONTINENCE TX REPAIR OF PERINEUM,NON OBSTETRICAL TX CYSTOURETHROSCOPY COLPORRHAPHY ANTERIOR/POSTERIOR REPAIR SLING OPERATION FEMALE Referral ID Status Reason Start Date Expiration Date Visits Re quested Visits Authorized [id number] 1 1 Encounter Details Date Type Department Care Team (Late st Contact Info) Description 03/27/2023 7:30 AM CDT - 03/27/2023 1:55 PM CDT Surgery [facility] [address] [place] [address] Anette Winn MD [address] [place] [phone] ANTERIOR / POSTERIOR COLPORRHAPHY Surgery Details Date/Time Status Location OR Service Patient Class Case Class Case Type Trauma Case? 03/27/2023 7:30 AM Posted [facility] MA[facility] OR OR 11 Gynecology Surgery Day Care Elective > 5 days Panel 1 Procedure LRB Anes Op Region Wound Class Comments ANTERIOR / POSTERIOR COLPORRHAPHY N/A General Perine um Clean Contaminated MIDURETHRAL SLING, PERINEORR HAPHY, CYSTOSCOPY N/A General Vagina Clean Contaminated Surgeon Surgeon Role Service Panel Anette Winn MD Primary Gynecology 1 Raúl Sparks MD Resident - Assisting Gynecology 1 Special Needs NEEDS TVT EXACT SLING KIT documented in this encounter Social History Tobacco [...] Sign Reading Time Taken Comments Blood Pressure 123/71 03/27/2023 1:55 PM CDT Pulse 99 03/27/2023 1:55 PM CDT Temperature 36.9 ??C (98.4 ??F) 03/27/2023 1:10 PM CD T Respiratory Rate 23 03/27/2023 1:55 PM CDT Oxygen Saturation 94% 03/27/2023 1:55 PM CDT Inhaled Oxygen Concentration - - [...] . ??16 years ago she went to [place] and saw someonefor urine leakage. 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 She??is??sexually active. She does not have??dyspareunia. ??2 SVDs Exam: Neg RAND SEWER, PVR 10 ml, Brinks 08/24, Udip neg Vagina:?Vaginal mucosa without lesions and??with??atrophy. [...] Lv 2 Term ALVARO 1 Term ALVARO WHEAT COMBINE DRIVER: See above FAMILY HISTORY: Family History Problem [...] C: 0/0/-6 Gh / pb / tvl: 09/15/09 Ap / Bp / D: ??-1/-1/-8 ?? [...] Resident - Assisting Anesthesiologist: Sky Merchant DO LAW SECRETARY: Joanne Dahl, COMIC ILLUSTRATOR-LAW SECRETARY; Angel Avila COMIC ILLUSTRATOR-LAW SECRETARY Pre-Op Diagnosis Codes: * Diagnosis unknown [R69] [...] Implant Name Type Inv. Item Serial No. Center Specialists Lot No. LRB No. Used Action Sys Ureth Supp Ha Adv Trnvg Midurethral Sys Ureth Supp Ha Adv Trnvg Midurethral [employer] [id number] N/A 1 Implanted Operative note dictated: no * Operative - Anette Winn MD - 03/27/2023 8:08 AM CDT Operative Note - [facility] Patient:Bhumi Fong Date of : 1955 Date of Procedure: 03/27/2023 Surgeon: Anette Winn MD Attending: Anette Winn MD Bottling Room Worker: Raúl Sparks MD Preoperative diagnosis: stress urinary [...] in the dorsal lithotomy position in the [facility]. Care was taken upon positioning to [...] the Mckeon catheter was removed. A 17 cymraes 70 degree cystoscope was inserted and cystourethroscopy [...] Implant Name Type Inv. Item Serial No. Center Specialists Lot No. LRB No. Used Action Sys Ureth Supp Ha Adv Trnvg Midurethral Sys Ureth Supp Ha Adv Trnvg Midurethral [employer] [id number] N/A 1 Implanted Complications: none Disposition: stable documented in this encounter Plan of Treatment Not on file documented as of this encounter Procedures Procedure Name Priority Date/Time Associated Diagnosis Comments CARDIAC EKG ORDER 03/29/2023 7:5 8 PM CDT APHERESIS/TRANSFUSIO N ORDER 03/29/2023 7:58 PM CDT CARDIAC RHYTHM STRIP ORDER 03/29/2023 7:57 PM CDT BLOOD TYPE VERIFICATION Routine 03/27/2023 6:40 AM CDT Pre-op testing TX SLING OPER STRES INCONTINENCE 03/27/2023 6:35 AM [...] [facility] [address] [phone] documented in this encounter Visit Diagnoses Diagnosis Pre-op testing- Primary Preoperative examination, unspecified Stress incontinence of urine Diagnosis unknown Other unknown and unspecified cause of morbidity or mortality documented in this encounter Administered Medications Inactive [...] of normal saline every 8 hours., Pre-op 0.9% NaCl injection PRN, Starting on Sun03/27/23 at 0837, Until Sun03/27/23 at 1251, Intra-op $ Given 03/27/2023 8:37 AM CDT 30 mL Operative Site 0.9% NaCl irrigation (SO) solution PRN, Starting on Sun03/27/23 at 0839, Until Sun03/27/23 at 1251, Intra-op $ Given 03/27/2023 8:39 AM CDT 400 mL Operative Site 0.9% nacl irrigation solution CONTINUOUS PRN, Starting on Sun03/27/23 at 0838, Until Sun03/27/23 at 1251, Intra-op $ New Bag/Syringe 03/27/2023 8:38 AM CDT 200 mL Operative Site acetaminophen (Tylenol) tablet 1,000 mg 1,000 mg, [...] Given 03/27/2023 6:41 AM CDT 1,000 mg BUPivacaine 0.75% - EPINEPHrine 1:200,000 (PF) injection PRN, Starting on Sun03/27/23 at 0840, Until Sun03/27/23 at 1251, Intra-op $ Given 03/27/2023 8:40 AM CDT 30 mL Operative Site dextrose 5 % and lactated ringers infusion [...] ($ New Bag/Syri nge - Provider: Shaunna Burks RN) lactated ringers infusion at 20 mL/hr, Intravenous, PRE-OP CONTINUOUS, Starting on Sun03/27/23 at 0630, Until Sun03/27/23 at 2020, Pre-op 0642 ($ New Bag/Syri nge - Provider: Farzana Conde RN)0835 ($ New Bag/Syringe - Provider: Angel Avila APRN-LAW SECRETARY)1233 ($ New Bag/Syringe - Provider: Angel Avila APRN-LAW SECRETARY) lactated ringers infusion at 125 mL/hr, Intravenous, [...] 1526 ($ Given - Prov ider: Shaunna Bruks RN) oxyCODONE-acetaminophen (Percocet) 5-325 MG tablet 1 [...] Pre-op documented in this encounter Care Teams Grapple Operator Relationship Specialty Start Date End Date Arabella Pop, COMIC ILLUSTRATOR-CABBAGE SALTER [address] [phone] PCP - General 11/01/22 documented as of this encounter
--- OUTSIDE RECORDS SUMMARY | 2024-07-26 17:57 | XMS_ITS | Encounter Summary ---
Author Organization [facility] Address 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 [employer] Name Role Phone Unavailable Primary Care Provider Unavailabl e Reason for Visit * Reason Comments Urine Incontinence Encounter Details Date Type Department Care Team (Late st Contact Info) Description 09/14/2022 11:00 AM SERVICES DELIVERY DRIVER Office Visit [facility] Obstetrics Gynecology and Women's Health [address] [place] [address] [phone] Anette Winn MD [address] [place] [address] Mixed stress and urge urinary incontinence (Primary Dx); Vaginal atrophy; Constipation, unspecified constipation type; Cystocele, midline; Rectocele Social History Tobacco Use Types Packs/Day Years Used Date Smoking Tobacco: Never Passive Smoke Exposure: Never Smokeless Tobacco: Never Alcohol Use Standard Drinks/Week Comments Not Currently 0 (1 standard drink = 0.6 oz pur e alcohol) Sex and Gender Information Value Date Recorded Sex Assigned at Female 03/21/2023 7:00 PM CDT Gender Identity Female 03/21/2023 7:00 PM CDT Sexual Orientation Straight 03/21/2023 7: 00 PM CDT documented as of this encounter Last Filed Vital Signs Vital Sign Reading Time Taken Comments Blood Pressure 130/82 09/14/2022 11:00 AM SERVICES DELIVERY DRIVER Pulse - - Temperature - - Respiratory Rate - - Oxygen Saturation - - Inhaled Oxygen Concentration - - Weight 81.4 kg (179 lb 6.4 oz) 09/14/2022 11:00 AM SERVICES DELIVERY DRIVER Height 157.5 cm (5' 2.01 ) 09/14/2022 11:00 AM Jeremy DUONG Body Mass Index 32.8 09/14/2022 11:00 AM SERVICES DELIVERY DRIVER documented in this encounter Patient Instructions * Patient Instructions* Anette Winn MD - 09/14/2022 11:59 AM SERVICES DELIVERY DRIVER Pelvic floor physical therapy Return for urodynamic testing Colonoscopy Daily metamucil fiber (1 tablespoon in a cup of water everyday after dinner) Bladder diary Vaginal estrogen URODYNAMIC STUDY (UDS) Bladder Test This study evaluates how your bladder fills, your risk for urine leakage, and your bladder's ability to empty. This will help inform your doctor how best to treat your condition. You must arrive at your scheduled appointment time. If you are late for your appointment, there is a possibility that the test will need to be rescheduled Please try to arrive with a comfortably full bladder! This is important! If you arrive and are unable to wait to empty your bladder, please let the tower technician or nurse know before you use the rest room. On the day of the testing you may eat normal meals and take your medications. Please check with your doctor about any bladder control medication you are taking. You may need to stop this prior to your testing. What are Urodynamics and how are they done? Urodynamics are used to evaluate how your bladder and urethra work. They help determine the cause of your urinary tract problem. The pressures in the bladder and urethra are measured during the studyand are used to fo rmulate the best plan for you. After you have emptied your bladder into the special commode small catheters will be placed into your bladder and into your vagina (or rectum). These special catheters measure the pressure in your bladder. Your bladder will be filled using the catheter in your bladder and you will be asked to cough and strain at differentpoints during the filling. Once your bladder is full, you will be asked to empty your bladder in the special commode again with the catheters in place. Most patients can void easily with the catheters in place since the catheters are so small. This procedure lasts about an hour, so it is very important that you arrive on time. Please arrive 15 minutes early to this appointment, otherwise it is subject to cancellation. Vaginal atrophy Today, we talked about the condition of vaginal atrophy. This condition can symptoms of vaginal dryness and can increase your risk of frequent urinary tract infections. This generally happens as a result of the natural loss of estrogen levels as we age. The best treatment of this condition is vaginal estrogen cream. Low-dose vaginal estrogen use 1-2 times weekly is safe and has very low risk of being absorbed intothe circulation, therefore does not have negative effects on other organs. Please call the office if you are having difficulty with side effects or if your insurance / pharmacy suggests a different type of medication. Call if any problems or concerns at . You can also ask the deburring and tooling machine operator to send me a message, and I or the nurses in Urogynecology Triage will respond when we can. If you need to send records or results to our office, our fax number is [phone]. ICES DELIVERY DRIVER documented in this encounter Progress Notes * Anette Winn MD - 09/14/2022 11:17 AM CST Female Pelvic Medicine and Reconstructive Surgery New Patient Consultation Referring Provider: Anette Mariee PA-C [address] [place] [phone] Primary Care Provider: Patient Care Team: Catherine Mosqueda PA-C as PCP - General (Physician Machine Coil Assembler) Date of Service: 09/14/2022 Chief Complaint: Urine Incontinence History of Present Illness: Ms. Bhumi Fong is a 67 year old female who presents in consultation at the request of Dr. Mariee for evaluation. Reports that when she moves and walks she pees . 16 years ago she went to [place] and saw someone for urine leakage. She did jumping and did not leak. Was told she had a shy bladder. Reports she took medication for an overactive bladder and it made her symptoms worse. Outside records received, COURT [address] and [facility] [place]: Office notes about rash and HTN. Referral order for daily incontinence, no improvement with kegels or antimuscarinics, may need PFPT, mild cystocele. Oxybutynin was listed on the medication list in a clinic note. Urinary Leakage Symptoms: She reports urinary incontinence symptoms. Stress Symptoms: She does have stress incontinence. She has had loss of drops of urine with coughing, sneezing, walking. Daily Urge Symptoms: She does have urge incontinence. Occurs daily She voids every 1 hours, and awakens 0 times per night to void. Pad Use: She does wear a pad. Severity: She describes these episodes of leakage as moderate. Previous Treatment for UI: She has previously been treated with a medication that she cannot remember the name of. Impact on QOL: She reports this significantly limits her quality of life. Duration: She reports that she has had the above symptoms for 20 years. It has gotten worse. Bladder Emptying/Upper Urinary Tract Symptoms: Nocturia: At night she has nocturia 0 times per night. Voiding Dysfunction: She denies dysuria, gross hematuria, post void fullness, hesitancy, post void dribbling. Splinting: She does not need to splint to void. Kidney Stones: She does not have a history of kidney stones. Gross Hematuria: She does not have gross hematuria. Frequent UTIs: She does have a history of frequent UTI, last was 1.5 years ago. Bulge Symptoms: She does not have pressure/bulge symptoms. Bowel Symptoms: She does not have normal bowel movements. She has 2 bowel movements per week. Has never had a colonoscopy, had a negative cologard last fall. Stool Consistency: formed stool Diarrhea: She does not have diarrhea. Constipation: She has constipation. Reports no improvement with diet changes and miralax. Fecal Incontinence: She has loss of stool unformed stool without her control. Rare, only when GI illness. Splinting: She does not have the need to splint to have a BM. Emptying: She does not have incomplete rectal emptying. In terms of exercise, she states she is not active. Review of Systems: Constitutional: Negative Eyes: Negative Ears, nose, mouth, throat, and face: Negative Respiratory: Negative Cardiovascular: Negative Gastrointestinal: Reflux Genitourinary:Frequency and Incontinence Integument/breast: Negative Hematologic/lymphatic: Negative Musculoskeletal: Joint pain and Stiff joints Neurological: Negative Behavioral/Psych: Negative Endocrine: Negative Allergic/mmunologic: Negative Gynecologic History: She is menopausal. She has a history of abnormal Pap smears, s/p LEEP in 1998. 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 Sees her general cuff setter overlock in [place], she cannot remember her name. She is sexually active. She does not have dyspareunia. 2 SVDs Past Medical History: Diagnosis Date ??? Benign paroxysmal vertigo of both ears ??? Heartburn ??? Hypertension Past Surgical History: Procedure Laterality Date ??? CARPAL TUNNEL SURGERY ??? Cervical LEEP 1998 ??? Tonsillectomy ??? TUBAL LIGATION, LAPAROSCOPIC Social History Socioeconomic History ??? Marital status: Unknown Spouse name: Not on file ??? Number [...] on file Housing Stability: Not on file Family History Problem Relation Name Age of Onset ??? Hypertension Mother ??? Osteoporosis Mother ??? High Cholesterol Mother ??? Hypertension Sister ??? CAD (Coronary Artery Disease) Sister ??? Cancer - Breast Sister ??? Hypertension Sister ??? CAD (Coronary Artery Disease) Sister ??? Hypertension Brother ??? CAD (Coronary Artery Disease) Brother ??? Hypertension Brother Current Outpatient Medications on File Prior to Visit Medication Sig Dispense Refill ??? cyclobenzaprine (Flexeril) 10 MG tablet Take 1 (one) tablet by mouth once daily ??? Flaxseed, Linseed, (Flax Seed Oil) 1300 [...] (two) capsules by mouth at bedtime ??? Pseudoephedrine HCl (SUDAFED PO) Take 120 mg by mouth once daily ??? verapamil (Isoptin) 80 MG tablet Take 1 (one) tablet by mouth 3 times daily No current facility-administered medications on file prior to visit. Allergies Allergen Reactions ??? Lisinopril Cough ??? Codeine GI Discomfort PHYSICAL EXAMINATION: Vitals: 09/14/22 1100 BP: 130/82 Weight: 81.4 kg (179 lb 6.4 oz) Height: 1.575 m (5' 2.01 ) Negative cough stress test. Procedure note: Straight catheterization was performed after swabbing the urethra with betadine. A 14 Fr urethral catheter was inserted without difficulty and the bladder was drained for 10 mL. The patient tolerated the procedure well. Post Void Residual: The Postvoid Residual Volume (PVR) was 10 mL. Constitutional: General appearance: Well nourished, well developed female in no acute distress. Neuro: Normal mood and affect. Neck: Supple, normal appearance. Respiratory: Normal respiratory effort. Cardiovascular: No lower extremity edema. Skin: Warm and dry. Lymphatic: No inguinal lymphadenopathy. Gastrointestinal: No masses. No abdominal tenderness. No hernias. No hepatosplenomegaly. Detailed Urogynecologic Evaluation: Chaperoned by: Girma Kate Pelvic Exam performed in the dorsal lithotomy position: External: Normal external female genitalia Vagina: Vaginal mucosa without lesions and with atrophy. Bladder base - within normal limits Urethra: within normal limits, Urethral meatus within normal limits, no urethral masses or discharge. Urethrovesical junction hypermobility - Yes Cervix: normal appearance. Uterus: within normal limits Adnexa: No mass, fullness, tenderness. Anus / Perineum: WNL Rectovaginal: Rectal - no masses, no tenderness Anal sphincter by palpation - normal resting tone, normal voluntary squeeze Pelvic Floor Muscles: normal tone Brink Pelvic Muscle Rating Scale: Pressure: 1 0) No response 1) Weak squeeze 2) Moderate squeeze 3) Strong squeeze Displacement: 0 0) None 1) Finger moves anteriorly 2) Whole finger moves anteriorly 3) Whole finger gripped and pulled in Duration: 1 0) None 1) < 1 second 2) 1-3 seconds 3) > 3 seconds POP-Q: Performed in the dorsal lithotomy position Vaginal/Pelvic floor support: POP-Q- Aa / Ba / C: -1/-1/-7 Gh / pb / tvl: Ap / Bp / D: - Laboratory Results: Urine dipstick: chin est- negative, nitrates- negative, blood- negative, protein- negative Assessment: Ms. Fong is a 67 year old with: ICD-10-CM 1. Mixed stress and urge urinary incontinence N39.46 URINALYSIS AUTO - POINT OF CARE (AMB) [facility] PROC BLADDER CATHETERIZATION AMB REFERRAL TO PHYSICAL THERAPY 2. Vaginal atrophy N95.2 3. Constipation, unspecified constipation type K59.00 4. Cystocele, midline N81.11 5. Rectocele N81.6 Plan: Mixed Urinary Incontinence: We reviewed the diagnosis of overactive bladder (OAB) and stress incontinence (GEN) and discussed the symptoms of each diagnosis. We described how her symptoms are consistent with GEN>UUI. In order for further evaluate her urinary incontinence, we recommend urodynamic evaluation. We described this procedure to the patient and provided her with a detailed handout regarding urodynamics. We have also asked her to complete a voiding diary. For treatment of GEN, we discussed expectant management versus nonsurgical therapy versus surgery for GEN. Nonsurgical options include Kegel exercises, with or without physical therapy, as well as anincontinence pessary. Surgical options include a midurethral sling, which we explained is a synthetic mesh sling that acts like a hammock around the urethra to prevent leakage of urine. In terms of her OAB symptoms, we discussed that while we do not know the exact etiology of OAB, several treatmentoptions exist, including behavioral management, physical therapy, anticholinergic medications, and neuromodulation. > oxybutynin was ineffective and made her urinary incontinence worse, she would like to hold on other medications for OAB at this time > discussed behavioral interventions including weight loss > bothered by urinary leakage with standing, unsure if it is with the act of standing or with urgency after she stands > referral to pelvic floor physical therapy > considering sling surgery > bladder diary We will follow up with the patient after urodynamics for further discussion of treatment planning. Vaginal atrophy: We discussed that vaginal atrophy occurs due to the lack of estrogen in the genitourinary tract. I recommend low-dose vaginal estrogen topical use 2 times weekly for treatment of atrophy to help the vaginal tissues. We discussed that the dose when applied vaginally at this frequency is very low and, thus, will have low systemic absorption. It is rare to have systemic estrogen side effects. A prescription for vaginal estrogen was sent to the patient's pharmacy. Constipation: The importance of a bowel regimen and regular bowel movements were reinforced to the patient today. We discussed management options of dietary changes, fiber supplementation, syaa-nip-qoldmzj agents (both stool softeners, such as docusate, and laxatives such as milk of magnesia and Miralax). Ultimately, she has elected for a regimen of daily psyllium fiber. > recommend she get a colonoscopy Pelvic Organ Prolapse - Cystocele and rectocele: We reviewed this patient's particular anatomy withher with the assistance of anatomic diagrams. We discussed the treatment options for prolapse including conservative management, pessary, and surgical management. We specifically discussed the importance of a good bowel regimen to decrease her risk of recurrent cystocele and rectocele. We reviewed the benefits and risks of each treatment option. We reviewed the surgical options that she was a good candidate for, including vaginal approach with venetie tissue repairs. We talked aboutthe risks of recurrence after this procedure quoting an 30% risk for recurrence with vaginal nativetissue repair. She desires surgical treatment for the cystocele and rectocele and was provided with information regarding the surgical treatment of prolapse. > she is considering sling surgery and therefore considering anterior and posterior colporrhaphyat the time of sling surgery > 67 minutes spent on the visit: reviewing records, with the patient, counseling, orders, documentation ICES DELIVERY DRIVER documented in this encounter Procedure Notes * Anette Winn MD - 09/14/2022 12:00 PM CSTAssociated Order(s): PROC BLADDER CATHETERIZATION Procedure(s): FL INSERT NON-INDWELLING BLADDER Pre-Procedure Diagnose(s): Mixed stress and urge urinary incontinence Post-Procedure Diagnose(s): Mixed stress and urge urinary incontinence Procedure note: Straight catheterization was performed after swabbing the urethra with betadine. A 14 Fr urethral catheter was inserted without difficulty and the bladder was drained for 10 mL. The patient tolerated the procedure well. ICES DELIVERY DRIVER documented in this encounter Plan of Treatment Not on file documented as of this encounter Procedures Procedure Name Priority Date/Time Associated Diagnosis Comments URINALYSIS AUTO - POINT OF CARE (AMB) [facility] Routine 09/14/2022 12:03 PM SERVICES DELIVERY DRIVER Mixed stress and urge urinary incontinence FL INSERT NON-INDWELLING BLADDER Routine 09/14/2022 12:00 PM SERVICES DELIVERY DRIVER Mixed stress and urge urinary incontinence documented in this encounter Results * URINALYSIS AUTO - POINT OF CARE (AMB) [facility] (09/14/2022 12:03 PM SERVICES DELIVERY DRIVER) Glucose UA neg Bilirubin UA POCT neg Ketones UA POCT neg Specific [place] UA 1.015 Blood Urine POCT neg pH UA 7.5 Protein UA neg Urobilinogen UA neg Nitrite UA neg WBC UA neg Urine URINE / Unknown 09/14/2022 1 2:03 PM SERVICES DELIVERY DRIVER Anette Winn MD LAB - POINT OF CARE ORDERABLES * FL INSERT NON-INDWELLING BLADDER (09/14/2022 12:00 PM SERVICES DELIVERY DRIVER) Narrative Anette Winn MD - 09/14/2022 12:00 PM SERVICES DELIVERY DRIVER Anette Winn MD ? 09/14/2022 12:56 PM Procedure note: Straight catheterization was performed after swabbing the urethra with betadine. A 14 Fr urethral catheter was inserted without difficulty and the bladder was drained for 10 mL. The patient tolerated the procedure well. ?? Anette Winn MD PROCEDURE/MINOR WAQAR GICAL ORDERABLES documented in this encounter Visit Diagnoses Diagnosis Mixed stress and urge urinary incontinence- Primary Mixed incontinence urge and stress (male)(female) Vaginal atrophy Postmenopausal atrophic vaginitis Constipation, unspecified constipation type Cystocele, midline Rectocele documented in this encounter
--- OUTSIDE RECORDS SUMMARY | 2024-07-26 17:57 | XMS_ITS | Encounter Summary ---
Author Organization [facility] Health Address [address] [place] [address] Care Team Providers Care Manager Transportation Planning Name Role Phone Arabella Pop FREDERICK-PHLEBOTOMY COORDINATOR Primary Care Provider Reason for Visit * Reason Comments Prolapse Encounter Details Date Type Department Care Team (Latest Contact Info) Description 11/01/2022 2:00 PM CDT Procedure visit [facility] [address] [place] [address] Anette Winn MD [address] [place] [address] Mixed stress and urge urinary incontinence ; Vaginal atrophy; Constipation, unspecified constipation type; Cystocele, [...] Sign Reading Time Taken Comments Blood Pressure 138/82 11/01/2022 2:04 PM CDT Pulse - - Temperature 36.2 ??C (97.2 ??F) 11/01/2022 2:04 PM CD T Respiratory Rate - - Oxygen Saturation - - Inhaled Oxygen Concentration - - Weight 81.8 kg (180 lb 6.4 oz) 11/01/2022 2:04 P M CDT Height 157.5 cm (5' 2.01 ) 11/01/2022 2:04 PM CD T Body Mass Index 32.99 11/01/2022 2:04 PM CDT documented in this encounter Patient Instructions * Patient Instructions* Anette Winn MD - 11/01/2022 12:01 PM CDT Try miralax daily to treat constipation. Planning for Surgery: We recommend you do NOT take Aspirin/NSAIDs within 10 days of your surgery date. Please speak to our surgical product sales consultant, Saira Keenan, in person or call her at to schedule your surgery and plan the dates for the postoperative exam. Surgical plan: Anterior colporrhaphy, midurethral sling, cystourethroscopy, posterior colporrhaphy,and perineorrhaphy Taking Care of Yourself After Urodynamics or Cystoscopy Drink plenty of water for a day or two following your procedure. Try to have about 8 ounces (one cup) at a time, and do this 6 times or more per day. (If you have fluid restrictions, please ask the nurse for advice). For the first 8 hours after the procedure your urine may be pink or red in color. Small clots or a few drops of blood can be a normal side effect from having a catheter placed. Large amounts of bleeding or difficulty urinating are NOT normal. Call your doctor if this happens. You may experience some mild discomfort or a burning sensation with urination after having this procedure. If it does not improve within 24 hours or other symptoms appear (fever, chills, cloudy urine, back pain, or difficulty emptying) call our nurse triage line at during office hours. Since no sedation or pain medicine is required, you may return to normal activities such as work, school, driving, exercising and housework. Call if any problems or concerns at . You can also ask the turning machine set up operator to send me a message, and I or the nurses in Urogynecology Triage will respond when we can. If you need to send records or results to our office, our fax number is [phone]. documented in this encounter Progress Notes * Anette Winn MD - 11/01/2022 2:00 PM CDT Urogynecology and Pelvic Reconstructive Surgery Return Visit Referring Provider: Unknown, Provider PCP: Arabella Pop, FREDERICK-PHLEBOTOMY COORDINATOR Date of Visit: 11/01/2022 Chief Complaint: Prolapse History of Present Illness: Bhumi Fong is a 67 year old female who presents today as a return visit. Urogynecologic history: 09/14/22 initial visit: Reports that when she moves and walks she pees . 16 years ago she went to [place] and saw someone for urine leakage. She [...] the medication list in a clinic note. GEN: Daily UUI: Occurs daily. voids every 1 hours, and awakens 0 times per night to void. has previously been treated with a medication that she cannot remember the name of. does have a history of frequent UTI, last was 1.5 years ago. has constipation. Reports no improvement with diet changes and miralax. has 2 bowel movements per week. Has never had a colonoscopy, had a negative cologard last fall. Fecal Incontinence: She has loss of stool unformed stool without her control. Rare, only when GI illness. has a history of abnormal Pap smears, s/p LEEP in 1998. 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 Sees her general lead applier in [place], she cannot remember her name. She is sexually active. She does not have dyspareunia. 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 POP-Q- Aa / Ba / C: -- Gh / pb / tvl: Ap / Bp / D: - Mixed Urinary Incontinence: GEN>UUI. we recommend urodynamic evaluation. > oxybutynin was ineffective and made her [...] Pelvic Organ Prolapse - Cystocele and rectocele: desires surgical treatment for the cystocele and [...] EMG activity during the void, normal PVR Interval History: Reports she is most bothered by leakage with movement. Feels urgency when she stands up. Voids often, sometimes to make sure she does not leak and sometimes with urgency. Bladder Diary: The bladder diary was performed [...] 1998 ??? Tonsillectomy ??? TUBAL LIGATION, LAPAROSCOPIC Current Outpatient Medications on File Prior to [...] Patient is allergic to lisinopril and codeine. Physical Exam: BP 138/82 Temp 97.2 ??F (36.2 ??C) Ht 1.575 m (5' 2.01 ) Wt 81.8 kg (180 lb 6.4 oz) Constitutional: General appearance: Well nourished, well developed female in no acute distress. Neuro: Normal mood and affect. Neck: Supple, normal appearance. Respiratory: Normal respiratory effort. Cardiovascular: No lower extremity edema. Skin: Warm and dry. POP-Q- Aa / Ba / C: 0/0/-6 Gh / pb / tvl: 09/15/09 Ap / Bp / D: ??-1/-1/-8 Laboratory Results: Urine dipstick: negative Assessment: Ms. Fong is a 67 year old with: ICD-10-CM 1. Mixed stress and urge urinary incontinence N39.46 2. Vaginal atrophy N95.2 3. Constipation, unspecified constipation type K59.00 4. Cystocele, midline N81.11 URINALYSIS AUTO - POINT OF CARE (AMB) [facility] 5. Rectocele N81.6 Plan: Mixed Urinary Incontinence: GEN>UUI > oxybutynin was ineffective and made her [...] miralax > recommend she get a colonoscopy Stress Incontinence: For treatment of stress incontinence, we discussed expectant management versusnonsurgical options versus surgery. Nonsurgical options include Kegel exercises, with or without physical therapy, as well as an incontinence pessary. Surgical options include a midurethral sling, which is a synthetic mesh sling that acts like a hammock around the urethra to decrease leakage of urine by 85%. We specifically discussed that this surgery does not treat urgency-frequency or urge urinary incontinence and has the risk of worsening these symptoms. Alternatives, risks and benefits were discussed with the patients. We discussed risks of bleeding, infection, damage to surrounding organs including bowel, bladder, major blood vessels, ureters and nerves, need for further surgery, risk of postoperative urinary incontinence (stress or urge), urinary retention, recurrent prolapse, leg numbness, buttock pain, dyspareunia, mesh exposure or erosion, vaginal scarring, risk of laparotomy and the rarer risks of rarer risks of blood clot, heart attack,pneumonia, . We discussed the potential risk of needing further procedures. We specifically discussed the risks of mesh erosion and the FDA safety notification. In addition, we discussed our experience and training with mesh removal and our close postoperative follow up to identify any potential adverse events. We reviewed the possibility of immediate postoperative catheter use with either an intermittent self-catheterization plan or a transurethral mckeon catheter. We reviewed postoperative limitations of nothing per vagina and no heavy lifting x 6 weeks after surgery. She did not learn CISC and will usea mckeon catheter if needed after surgery. We ultimately agreed that she would undergo midurethral sling, cystoscopy. Cystocele and rectocele: We reviewed this patient's particular anatomy with her with the assitance of anatomic diagrams. We discussed treatment options including conservative managmeent and surgical management. We reviewed surgical options including vaginal approach with [place] tissue repairs and discussed the risks, benefits, and alternatives to the surgical approach. We talked about the risks of recurrence after each procedure quoting a 20-30% risk fo recurrence with vaginal [place] tissue repair. As with all procedures, we discussed various surgical risks associated with both mesh and non-mesh reconstructive surgeries. Alternatives, risks, and benefits were discussed with the patient. We discussed risks of bleeding, infection, damage to surrounding organs including bowel/bladder/major blood vessels/ureters/nerves, need for further surgery, risk of postoperative urinary incontinence (stress or urge), urinary retention, recurrent prolapse, leg numbness, buttock pain, dyspareunia, and the rarer risks of rarer risks of blood clot/heart attack/pneumonia/. We discussed the potential risk of needing further procedures. We agreed that we would proceed with a suburethral mesh sling at the time of any prolapse repair toreduce her risk of postoperative stress incontinence given the urodynamic stress incontinence on urodynamic testing. Surgical plan: Anterior colporrhaphy, midurethral sling, cystourethroscopy, posterior colporrhaphy,and perineorrhaphy > 40 minutes spent on the visit in addition to the procedure: preparing for the visit, with the patient, counseling, orders, documentation documented in this encounter Procedure Notes * Anette Winn MD - 11/01/2022 3:16 PM CDTAssociated Order(s): PROC URODYNAMICS Procedure(s): WA ELECTRO-UROFLOWMETRY, FIRST; WA ANAL/URINARY MUSCLE STUDY; WA INTRAABDOMINAL PRESSURE TEST; WA CYSTOMETROGRAM W/PROJECT MANAGER ENTERTAINMENT AND MEDIA&UP Pre-Procedure Diagnose(s): Mixed stress and urge urinary incontinence; Cystocele, midline; Rectocele Post-Procedure Diagnose(s): Mixed stress and urge urinary incontinence; Cystocele, midline; Rectocele Urogynecology and Pelvic Reconstructive Surgery Procedure Note: Urodynamic Evaluation 11/01/2022 Yolette Fong is a 67 year old female who presents for a urodynamic evaluation. Indication(s) for study: mixed urinary incontinence, cystocele, rectocele. Laboratory Results: Catheterized urine dipstick shows: negative Urodynamic Data: Urodynamic studies are performed in a seated position unless otherwise noted. Complex uroflowmetry was performed to noninvasively study the urine flow over time. The patient wasinstructed to void on a commode chair. A post void residual urine measurement was performed via straight catheterization immediately after uroflowmetry. Using calibrated equipment, the maximum urinary flow rate was 23 cc per second with a voiding time of 21 seconds and a voided volume of 169 cc. The residual urine was 5 cc. Complex Uroflowmetry Impressions: Continuous flow, normal PVR Complex cystometry was performed to assess bladder sensation and storage. A dual-channel 7-Fr catheter was passed via the urethra into the bladder. A second 7-Fr catheter was placed in the vagina or rectum to measure intra-abdominal pressure. Both catheters were zeroed to atmospheric pressure and the bladder was filled with room-temperature saline in retrograde fashion using a pump. Bladder sensation and urgency were assessed while filling. Bladder pressure was continuously observed during the study for evidence of involuntary detrusor contractions. At maximum capacity, provocative measures were performed to elicit involuntary detrusor contractions. These measures include: cough, heel-bounce, listening to running water, position change, and/or guided imagery. The bladder was filled with room temperature water at a rate of 80 cc per minute. The patient tolerated this and she was found to have: First sensation (S1) at 50 cc. Sensation of fullness at 195 cc. Strong desire at 300 cc. Maximal cystometric capacity [...] in order to assess urethral closure pressures. Once this portion of the study is completed, the transurethral catheter is re-inserted into the bladder for the remainder of the urodynamic evaluation. Urethral pressure profilometry (UPP): Maximal urethral closure pressure (MUCP): 38 cm H20 Urethral Pressure Profile Impression: MUCP: Borderline ( 20 cm H20 < MUCP < 40 cm H20) A micturition, or pressure-flow study, was performed in order to further evaluate voiding function.In this study the transurethral and vaginal (or rectal) catheters are left in place and the patienturinates around these catheters. Bladder pressures are recorded while also recording urine flow over time. At the end of the study, all catheters are removed and a final post void residual is obtained. Post procedure instructions are reviewed. The patient was instructed to void. She voided via detrusor contraction. Her maximal detrusor during void (Pdet max) was 12.5 cm water. Her void was phasic. Her post void residual by catheterization was 10 cc. Pressure Flow Study Impressions: Detrusor function: normal Perineal surface electromyography (EMG) was performed during complex cystometry and micturition, toassess pelvic floor muscle activity during filling and voiding phases of urodynamic studies. Urethral function: elevated pelvic floor EMG activity during the void, normal PVR Assessment: Bhumi Fong is a 67 year old female with: ICD-10-CM 1. Mixed stress and urge urinary incontinence N39.46 OBG Surgery Scheduling Order PROC URODYNAMICS 2. Vaginal atrophy N95.2 3. Constipation, unspecified constipation type K59.00 4. Cystocele, midline N81.11 URINALYSIS AUTO - POINT OF CARE (AMB) [facility] OBG Surgery Scheduling Order PROC URODYNAMICS 5. Rectocele N81.6 OBG Surgery Scheduling Order PROC URODYNAMICS There was not evidence of DO [...] plan, see separate note. Anette Winn MD documented in this encounter Plan of Treatment Not on file documented as of this encounter Procedures Procedure Name Priority Date/Time Associated Diagnosis Comments WA CYSTOMETROGRAM W/PROJECT MANAGER ENTERTAINMENT AND MEDIA&UP Routine 11/01/2022 3:16 PM CDT Mixed stress and urge urinary incontinence Cystocele, midline Rectocele WA INTRAABDOMINAL PRESSURE TEST Routine 11/01/2022 3:16 PM CDT Mixed stress and urge urinary incontinence Cystocele, midline Rectocele WA ANAL/URINARY MUSCLE STUDY Routine 11/01/2022 3:16 PM CDT Mixed stress and urge urinary incontinence Cystocele, midline Rectocele WA ELECTRO-UROFLOWMETRY, FIRST Routine 11/01/2022 3:16 PM CDT Mixed stress and urge urinary incontinence Cystocele, midline Rectocele URINALYSIS AUTO - POINT OF CARE (AMB) [facility] Routine 11/01/2022 2:15 PM CDT Cystocele, midline documented in this encounter Results * WA ELECTRO-UROFLOWMETRY, FIRST, WA ANAL/URINARY MUSCLE STUDY, WA INTRAABDOMINAL PRESSURE TEST, WA CYSTOMETROGRAM W/PROJECT MANAGER ENTERTAINMENT AND MEDIA&UP (11/01/2022 3:16 PM CDT) Narrative Anette Winn MD - 11/01/2022 3:16 PM CDT Anette Winn MD ? 11/05/2022 12:19 PM Urogynecology and Pelvic Reconstructive Surgery Procedure Note: Urodynamic Evaluation 11/01/2022 Yolette Fong is a 67 year old female [...] CARE (AMB) [facility] (11/01/2022 2:15 PM CDT) Glucose UA neg Bilirubin UA POCT neg Ketones UA POCT neg Specific [place] UA 1.015 Blood Urine POCT neg pH UA 7.5 Protein UA neg Urobilinogen UA neg Nitrite UA neg WBC UA neg Urine URINE / Unknown 11/01/2022 2 :15 PM CDT Anette Winn MD LAB - POINT OF CARE ORDERABLES documented in this encounter Visit Diagnoses Diagnosis Mixed stress and urge urinary incontinence- Primary Mixed incontinence urge and stress (male)(female) Vaginal atrophy Postmenopausal atrophic vaginitis Constipation, unspecified constipation type Cystocele, midline Rectocele documented in this encounter Care Teams Manager Transportation Planning Relationship Specialty Start Date End Date Arabella Pop, WELDER FITTER APPRENTICE-PHLEBOTOMY COORDINATOR [address] [id number] PCP - General 11/01/22 documented as of this encounter
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
--- OUTSIDE RECORDS SUMMARY | 2024-07-26 17:57 | XMS_ITS | Encounter Summary ---
Author Organization [facility] Address [facility] [place] [address] Care Team Providers Care Outlet Manager Name Role Phone Arabella Pop FREDERICK-ENVELOPE PRESS OPERATOR Primary Care Provider Encounter Details Date Type Department Care Team (Latest Contact Info) Description 03/20/2023 8:59 AM CDT - 03/20/2023 11:59 PM CDT [facility] [address] [place] [phone] Anette Winn MD [address] [place] [phone] Discharge Disposition: Home or Self Care Social History Tobacco Use Types Packs/Day Years Used Date Smoking Tobacco: Never Passive Smoke Exposure: Never Smokeless Tobacco: Never Tobacco Cessation:Counseling Given: Yes Alcohol Use Standard Drinks/Week Comments Not Currently [...] Sign Reading Time Taken Comments Blood Pressure - - Pulse - - Temperature - - Respiratory Rate - - Oxygen Saturation - - Inhaled Oxygen Concentration - - Weight 82.1 kg (181 lb) 03/20/2023 9:15 AM CDT Height 157.5 cm (5' 2 ) 03/20/2023 9:15 AM CDT Body Mass Index 33.11 03/20/2023 9:15 AM CDT documented in this encounter Medications [...] 03/27/2023 05/07/2023 documented as of this encounter OR Notes * OR PreOp - Sandro Tobin RN - 03/20/2023 11:59 PM CDT PST NOTE preop EKG abnormal reviewed and approved by Dr. Merchant. documented in this encounter Plan of Treatment Not on file documented as of this encounter Procedures Procedure Name Priority Date/Time Associated Diagnosis Comments EKG 12-LEAD STAT 03/20/2023 9:24 AM CDT Preoperative examination CULTURE URINE Pre-Op 03/20/2023 9:11 AM CDT Preoperative examination TYPE + SCREEN PANEL Pre-Op 03/20/2023 9 :11 AM CDT Preoperative examination CBC W AUTO DIFFERENTIAL Pre-Op 03/20/2023 9:11 AM CDT Preoperative examination BASIC METABOLIC PANEL (CALCIUM TOTAL) Pre-Op 03/20/2023 9:11 AM CDT Preoperative examination documented in this encounter Results * EKG 12-LEAD (03/20/2023 9:24 AM CDT) Ventricular Rate 81 BPM [facility] Atrial Rate 81 BPM [facility] P-R Interval 148 ms [facility] QRS Duration ms 74 ms [facility] Q-T Interval ms 398 ms [facility] QTC Calculation (Bezet) 462 ms [facility] Calculated P [place] 62 degrees [facility] Calculated R [place] 0 degrees [facility] Calculated T [place] 36 degrees [facility] Interpretation EKG NORMAL SINUS RHYTHM LOW VOLTAGE QRS CANNOT RULE OUT ANTERIOR INFARCT , AGE UNDETERMINED NONSPECIFIC ST & T WAVE CHANGES ABNORMAL ECG NO PREVIOUS ECGS AVAILABLE Confirmed by DO GUILLEN STEPHANIE ([id number]) on 03/20/2023 3:42:11 PM [facility]USE 03/20/2023 9:24 AM CDT 03/20/2023 3:42 PM CDT Anette Winn MD ECG ORDERABLES [facility] * CULTURE URINE (03/20/2023 9:11 AM CDT) Pathologist [facility] Culture Urine 10,000-50,000 CFU/mL urogenital chana [place] 03/21/2023 2:43 PM CDT [facility] Urine URINE SPECIMEN OBTAINED BY CLEAN CATCH PROCEDURE / Unknown Collection / Unknown 03/20/2023 9:11 AM CDT 03/20/2023 9:28 AM CDT Anette Winn MD LAB - MICROBIOLOGY ORDERABLES Performing Organization Address City/[facility]/ZIP Co de Phone Number [facility] [address] [phone] * TYPE + SCREEN PANEL (03/20/2023 9:11 AM CDT) Pathologist [facility] ABO Rh A NEG 03/20/2023 10:11 AM CDT [facility] Comment:No history; collect retype. Antibody Screen NEG 10:11 AM CDT [facility] Blood Bank BLOOD SPECIMEN / Unknown Venipuncture / Unknown 03/20/2023 9:11 AM CDT 03/20/2023 9:28 AM CDT Anette Winn MD LAB - BLOOD BANK OR DERABLES Performing Organization Address City/[facility]/ZIP Co de Phone Number [facility] [address] [place], [place] [id number] [place] [address] * (ABNORMAL) BASIC METABOLIC PANEL (CALCIUM TOTAL) (03/20/2023 9:11 AM CDT) Glucose 99 70 - 105 mg/dL 03/20/2023 9:55 AM CDT [facility] Sodium 139 136 - 145 mmol/L 03/20/2023 9:55 AM CDT [facility] Potassium 3.9 3.5 - 5.1 mmol/L 03/20/2023 9:55 AM CDT [facility] Chloride 103 98 - 107 mmol/L 03/20/2023 9:55 AM CDT [facility] CO2 24 22 - 29 mmol/L 03/20/2023 9:55 AM CDT [facility] Calcium 9.4 8.4 - 10.4 mg/dL 03/20/2023 9:55 AM CDT [facility] Anion Gap 12 6 - 16 mmol/L 03/20/2023 9:55 AM CDT [facility] BUN 12 7 - 26 mg/dL 03/20/2023 9:55 AM CDT [facility] Creatinine 0.79 0.57 - 1.11 mg/dL 03/20/2023 9:55 AM CDT [facility] eGFR by CKD-EPI 82(L) >=90 mL/min/1.7 3 m2 03/20/2023 9:55 AM CDT [facility] Blood BLOOD SPECIMEN / Unknown Venipuncture / Unknown 03/20/2023 9:11 AM CDT 03/20/2023 9:28 AM CDT Anette Winn MD LAB - CHEMISTRY ORD ERABLES [facility] [address] [place] [address] * CBC W AUTO DIFFERENTIAL (03/20/2023 9:11 AM CDT) WBC 4.9 4.4 - 10.7 x10E9/L 03/20/2023 9:39 AM CDT [facility] WBC Corrected 03/20/2023 9:39 AM CDT [facility] RBC 4.66 3.80 - 5.20 x10E12/L 03/20/2023 9:39 AM CDT [facility] Hemoglobin 14.3 12.0 - 15.6 gm/dL 03/20/2023 9:39 AM CDT [facility] Hematocrit 43.5 35.9 - 45.5 % 03/20/2023 9:39 AM CDT [facility] MCV 93.3 80.7 - 98.3 fl 03/20/2023 9:39 AM CDT [facility] MCH 30.7 26.7 - 34.0 pg 03/20/2023 9:39 AM CDT [facility] MCHC 32.9 30.8 - 35.9 gm/dL 03/20/2023 9:39 AM [facility] Platelet Count 211 153 - 416 x10E9/L 03/20/2023 9:39 AM [facility] RDW-CV 13.1 12.1 - 14.9 % 03/20/2023 9:39 AM [facility] MPV 10.1 9.4 - 12.9 fl 03/20/2023 9:39 AM [facility] Neutrophils % 50.9 44.0 - 73.0 % 03/20/2023 9:39 AM [facility] Lymphocytes % 38.8 20.0 - 43.0 % 03/20/2023 9:39 AM [facility] Monocytes % 6.3 5.0 - 13.0 % 03/20/2023 9:39 AM [facility] Eosinophils % 3.0 0.0 - 6.0 % 03/20/2023 9:39 AM [facility] Basophils % 0.8 0.0 - 2.0 % 03/20/2023 9:39 AM [facility] Immature Granulocytes 0.2 0 - 1 % 03/20/2023 9:39 AM [facility] Neutrophil Absolute 2.50 2.01 - 7.14 x10E9/L 03/20/2023 9:39 AM [facility] Lymphocytes Absolute 1.91 1.07 - 3.94 x10E9/L 03/20/2023 9:39 AM [facility] Monocytes Absolute 0.31 0.26 - 1.07 x10E9/L 03/20/2023 9:39 AM [facility] Eosinophils Absolute 0.15 0 - 0.47 x10E9/L 03/20/2023 9:39 AM [facility] Basophils Absolute 0.04 0 - 0.08 x10E9/L 03/20/2023 9:39 AM [facility] Immature Granulocytes Absolute 0.01 0.00 - 0.06 x10E9/L 03/20/2023 9:39 AM [facility] nRBC Auto 0 /100 WBC 03/20/2023 9:39 AM [facility] Blood BLOOD SPECIMEN / Unknown Venipuncture / Unknown 03/20/2023 9:11 AM CDT 03/20/2023 9:28 AM CDT Anette Winn MD LAB - HEMATOLOGY OR DERABLES Performing Organization Address City/State/[facility] Co de Phone Number [facility] [address] [place] [address] documented in this encounter Visit Diagnoses Diagnosis Preoperative examination- Primary Preoperative examination, unspecified documented in this encounter Care Teams Outlet Manager Relationship Specialty Start Date End Date Arabella Pop, MANAGER INVENTORY-ENVELOPE PRESS OPERATOR [address] [phone] PCP - General 11/01/22 documented as of this encounter
--- OUTSIDE RECORDS SUMMARY | 2024-07-26 17:57 | XMS_ITS | Encounter Summary ---
Author Organization [facility] Address [address] [place] [address] Care Team Providers Care Forensic Analyst Name Role Phone Arabella Pop FREDERICK-COLLAR PACKER Primary Care Provider Reason for Visit * Reason Onset Date Comments Request Lab Order 01/10/2023 Encounter Details Date Type Department Care Team (Late st Contact Info) Description 01/10/2023 Telephone [facility] - GEOTHERMAL HEAT PUMP MACHINIST [address] [address] Anette Winn MD [address] [place] [address] Request Lab Order Social History Tobacco Use Types Packs/Day Years [...] Telephone Encounter - Dalila Aguayo LPN - 01/10/2023 12:18 PM CDT Done * Telephone Encounter - Bernice Keenan - 01/10/2023 11:30 AM CDT Can I please have an order for urine Cx to [facility] Thank you documented in this encounter Plan of Treatment Scheduled Orders Name Type Priority Associated Diagnoses Orde r Schedule CULTURE URINE Microbiology Routine Pre-op testing Ordered: 01/10/2023 documented as of this encounter Visit Diagnoses Diagnosis Pre-op testing- Primary Preoperative examination, unspecified documented in this encounter Care Teams Forensic Analyst Relationship Specialty Start Date End Date Arabella Pop, CANARY BREEDER-COLLAR PACKER [address] [phone] PCP - General 11/01/22 documented as of this encounter
--- OUTSIDE RECORDS SUMMARY | 2024-07-26 18:03 | XMS_ITS | Continuity of Care Document ---
Author Organization [facility] Address [address] [place] [address] Phone Care Team Providers Care Non Destructive Evaluation Specialist Name Role Phone Howard Palacio PA-C Unavailable [...] MG - Active Procedures Procedure Date Office/outpatient visit,[facility], [facility] 2018 Office/outpatient visit,[facility], [facility] 2018 Advance Directives Directive Yes / No Effective Date File Name No Information Encounters Encounter Description Practice Location Reason(s) For Visit Diagnoses Date Provider Providers Copied on Encounter Office/outpat ient visit,[facility], [facility], [address] [place] [address], [id number], tel:[phone] DARÍO YUN elbow (chief complaint) No Information 9 Hakeem Lawrence. [address] [place], [place], [id number] , [place]. tel:[phone] Office/outpat ient visit,[facility], [address] [place] [address], [id number], tel:[phone] [facility] rt hand (chief complaint) Carpal tunnel syndrome of right wristCubital tunnel syndrome on right 9 Tevin Syed. [address] [facility], [place], [place], [id number] , [place]. tel:[phone] Consulting Provider: Hu Carey NP, [address] [facility], [place], [address]. tel:[phone] ring Provider: Hu Hamlin, [address] [facility], [place], [address]. tel:[phone] Family History Family Member Type Diagnosis Age At Onset Problem (finding) Family history of Cance r, unknown Payers Payer name Insurance type Covered green party ID Authortono torres(s) BCBS Of [facility] [id number] Social History Type Description Quantity Date Captured [...] a history of CTR 2003 done in [facility]. Bhumi complains of weakness, loss of strength, [...]
== END 2024-07-19 12:10 | disposition home or self-care (01) ==
PROVIDERS: Emergency Provider Nurse Practitioner Family; PCP Nurse Practitioner Family
DX: J06.9 Acute upper respiratory infection, unspecified (principal); I10 Essential (primary) hypertension
CPT/HCPCS: 99203; G0463

== ENCOUNTER 2024-09-02 14:20 | Outpatient (CLI) | payer MEDICARE, MEDICAID, SELFPAY ==
--- NOTE | ~2024-09-02 | MM_ITS ---
EXAMINATION: MM screening ray BI w benedicto HISTORY: Screening TECHNIQUE: Craniocaudal and mediolateral oblique 3-D tomosynthesis images were obtained and synthetic 2-D images were generated. CAD analysis was submitted and interpreted. COMPARISON: No prior mammogram is available for comparison at this institution. BREAST PARENCHYMAL COMPOSITION: Not Dense: The breasts are almost entirely fatty. FINDINGS: There is no evidence of suspicious mass, calcification, or architectural distortion to sugg est malignancy in either breast. There has been no suspicious interval change. IMPRESSION: 1. No mammographic evidence of malignancy. 2. Recommend routine screening mammography in one year. BI-RADS Category 1: Negative Reviewed, dictated and finalized at location B. AXIAL REACTOR TECHNICIAN
--- OUTSIDE RECORDS SUMMARY | 2024-09-02 14:23 | XMS_ITS | Referral Summary ---
Author Organization [facility] Address [address] [place] [address] Care Team Providers Care Charcoal Burner Beehive Kiln Name Role Phone Arabella Pop FREDERICK-BLIND INSTALLER Primary Care Provider Source Comments [facility],non-owned Affiliates and Associated Physician Practices is amultiple site organization consisting of ambulatory clinics and hospital sitesin [place], [place], [place] and [place]. This disclosure is being madepursuant to the Care Everywhere program and may not contain all information available regarding this patient. Last updated 18.[facility] Allergies Active Allergy Reactions Criticality Noted Date [...] Comments Blood Pressure 158/98 06/25/2023 8:58 AM FITNESS DIRECTOR Pulse 80 06/25/2023 8:58 AM FITNESS DIRECTOR Temperature 36.7 C (98 F) 06/25/2023 8:58 AM FITNESS DIRECTOR Respiratory Rate 18 06/25/2023 8:58 AM FITNESS DIRECTOR Oxygen Saturation 95% 06/25/2023 8:58 AM FITNESS DIRECTOR Inhaled Oxygen Concentration - - Weight 82.8 kg (182 lb 9.6 oz) 06/25/2023 8:58 A M FITNESS DIRECTOR Height 157.5 cm (5' 2 ) 06/25/2023 8:58 AM FITNESS DIRECTOR Body Mass Index 33.4 06/25/2023 8:58 AM FITNESS DIRECTOR Plan of Treatment Not on file Medical Devices Implanted Type Area Batch And Furnace Operator Device Identifier Shelf Expiration Date Model / Serial / Lot Sys Ureth Supp Ha Adv Trnvg Midurethral Implanted:Qty: 1 on 03/27/2023 by Anette Winn MD at [facility] N/A: [employer] 01/06/2026 [id number] / / [id number] Procedures Procedure Name Priority Date/Time Associated Diagnosis Comments BASIC METABOLIC PANEL (CALCIUM TOTAL) Pre-Op 03/20/2023 9:11 AM CDT Preoperative examination from Last 3 Months or Most Recently Relevant to Health Maintenance Results * (ABNORMAL) BASIC METABOLIC PANEL (CALCIUM TOTAL) (03/20/2023 9:11 AM CDT) Glucose 99 70 - 105 mg/dL 03/20/2023 9:55 AM CDT [facility] Sodium 139 136 - 145 mmol/L 03/20/2023 9:55 AM CDT [facility] Potassium 3.9 3.5 - 5.1 mmol/L 03/20/2023 9:55 AM CDT [facility] Chloride 103 98 - 107 mmol/L 03/20/2023 9:55 AM CDT [facility] CO2 24 22 - 29 mmol/L 03/20/2023 9:55 AM CDT [facility] Calcium 9.4 8.4 - 10.4 mg/dL 03/20/2023 9:55 AM CDT [facility] Anion Gap 12 6 - 16 mmol/L 03/20/2023 9:55 AM CDT [facility] BUN 12 7 - 26 mg/dL 03/20/2023 9:55 AM CDT [facility] Creatinine 0.79 0.57 - 1.11 mg/dL 03/20/2023 9:55 AM CDT [facility] eGFR by CKD-EPI 82(L) >=90 mL/min/1.7 3 m2 03/20/2023 9:55 AM CDT [facility] Blood BLOOD SPECIMEN / Unknown Venipuncture / Unknown 03/20/2023 9:11 AM CDT 03/20/2023 9:28 AM CDT Anette Winn MD LAB - CHEMISTRY ORD ERABLES [facility] [address] [place] [address] from Last 3 Months or Most Recently Relevant to Health Maintenance Care Teams Charcoal Burner Beehive Kiln Relationship Specialty Start Date End Date Arabella Pop, COMPUTER FORENSICS INVESTIGATOR-BLIND INSTALLER [address] [place] [address] PCP - General 11/01/22
--- OUTSIDE RECORDS SUMMARY | 2024-09-02 14:23 | XMS_ITS | Clinical Summary ---
Author Organization [facility] Address [address] [place] [address] Care Team Providers Care Manager Administrative Name Role Phone Arabella Pop FREDERICK-BUSINESS INTEGRATION MANAGER Primary Care Provider Source Comments [facility],non-owned Affiliates and Associated Physician Practices is amultiple site organization consisting of ambulatory clinics and hospital sitesin [place], [place], [place] and [place]. This disclosure is being madepursuant to the Care Everywhere program and may not contain all information available regarding this patient. Last updated 18.[facility] Allergies Active Allergy Reactions Criticality Noted [...] Comments Blood Pressure 158/98 06/25/2023 8:58 AM CHIEF PORT DIRECTOR Pulse 80 06/25/2023 8:58 AM CHIEF PORT DIRECTOR Temperature 36.7 C (98 F) 06/25/2023 8:58 AM CHIEF PORT DIRECTOR Respiratory Rate 18 06/25/2023 8:58 AM CHIEF PORT DIRECTOR Oxygen Saturation 95% 06/25/2023 8:58 AM CHIEF PORT DIRECTOR Inhaled Oxygen Concentration - - Weight 82.8 kg (182 lb 9.6 oz) 06/25/2023 8:58 A M CHIEF PORT DIRECTOR Height 157.5 cm (5' 2 ) 06/25/2023 8:58 AM CHIEF PORT DIRECTOR Body Mass Index 33.4 06/25/2023 8:58 AM CHIEF PORT DIRECTOR Plan of Treatment Health Maintenance Due Date [...] 12/30/1974 DTAP/TDAP/TD VACCINES (1 - Tdap) 01/04/1976 PNEUMOCOCCAL VACCINE 50+ (1 of 1 - PCV) 2007 ZOSTER VACCINE (1 of 2) 2007 COVID-19 VACCINE (1 - 2023- season) 2024 INFLUENZA VACCINE (#1) 2024 DEPRESSION SCREENING 07/16/2024 05/21/2023, 05/07/2023, 04/30/2023, Additional history exists MEDICARE AWV CALENDAR YEAR 2024 SCREENING FOR DIABETES 03/20/2026 [...] patient's age to complete this topic MENINGOCOCCAL (Group B) VACCINE Aged Out No longer eligible based on patient's age to complete this topic MENINGOCOCCAL VACCINE Aged Out No brandie lion eligible based on patient's age to complete this topic Medical Devices Implanted Type Area Property And Equipment Clerk Device Identifier Shelf Expiration Date Model / Serial / Lot Sys Ureth Supp Ha Adv Trnvg Midurethral Implanted:Qty: 1 on 03/27/2023 by Anette Winn MD at [facility] N/A: Vagina [employer] 01/06/2026 [id number] / / [id number] Procedures Procedure Name Priority Date/Time Associated Diagnosis Comments BASIC METABOLIC PANEL (CALCIUM TOTAL) Pre-Op 03/20/2023 9:11 AM CDT Preoperative examination from Last 3 Months or Most Recently Relevant to Health Maintenance Results * (ABNORMAL) BASIC METABOLIC PANEL (CALCIUM TOTAL) (03/20/2023 9:11 AM CDT) [facility] Glucose 99 70 - 105 mg/dL 03/20/2023 9:55 AM CDT [facility] Sodium 139 136 - 145 mmol/L 03/20/2023 9:55 AM CDT [facility] Potassium 3.9 3.5 - 5.1 mmol/L 03/20/2023 9:55 AM CDT [facility] Chloride 103 98 - 107 mmol/L 03/20/2023 9:55 AM CDT [facility] CO2 24 22 - 29 mmol/L 03/20/2023 9:55 AM CDT [facility] Calcium 9.4 8.4 - 10.4 mg/dL 03/20/2023 9:55 AM CDT [facility] Anion Gap 12 6 - 16 mmol/L 03/20/2023 9:55 AM CDT [facility] BUN 12 7 - 26 mg/dL 03/20/2023 9:55 AM CDT [facility] Creatinine 0.79 0.57 - 1.11 mg/dL 03/20/2023 9:55 AM CDT [facility] eGFR by CKD-EPI 82(L) >=90 mL/min/1.7 3 m2 03/20/2023 9:55 AM CDT [facility] Blood BLOOD SPECIMEN / Unknown Venipuncture / Unknown 03/20/2023 9:11 AM CDT 03/20/2023 9:28 AM CDT Anette Winn MD LAB - CHEMISTRY ORD ERABLES Performing Organization Address City/State/[facility] Co de Phone Number [facility] [address] [place] [address] from Last 3 Months or Most Recently Relevant to Health Maintenance Care Teams Manager Administrative Relationship Specialty Start Date End Date Arabella Pop, PROPERTY MASTER-BUSINESS INTEGRATION MANAGER [address] [place] [phone] PCP - General 11/01/22
--- OUTSIDE RECORDS SUMMARY | 2024-09-02 14:23 | XMS_ITS | Patient Health Summary ---
Author Organization [facility] Address [address] [place] [address] Care Team Providers Care Teacher Citizenship Name Role Phone Arabella Pop Issac MACK-SHUTTLE VENEERING SUPERVISOR Primary Care Provider Note from [facility],non-owned Affiliates and Associated Physician Practices is amultiple site organization consisting of ambulatory clinics and hospital sitesin [place] and [place]. This disclosure is being madepursuant to the Care Everywhere program and may not contain all information available regarding this patient. Last updated 18.[facility] Allergies * Codeine(GI Discomfort) -Low Criticality * [...] Comments Blood Pressure 158/98 06/25/2023 8:58 AM GAMING CAGE CASHIER Pulse 80 06/25/2023 8:58 AM GAMING CAGE CASHIER Temperature 36.7 C (98 F) 06/25/2023 8:58 AM GAMING CAGE CASHIER Respiratory Rate 18 06/25/2023 8:58 AM GAMING CAGE CASHIER Oxygen Saturation 95% 06/25/2023 8:58 AM GAMING CAGE CASHIER Inhaled Oxygen Concentration - - Weight 82.8 kg (182 lb 9.6 oz) 06/25/2023 8:58 A M GAMING CAGE CASHIER Height 157.5 cm (5' 2 ) 06/25/2023 8:58 AM GAMING CAGE CASHIER Body Mass Index 33.4 06/25/2023 8:58 AM GAMING CAGE CASHIER Medical Devices Implanted Type Area Compliance Director Device Identifier Shelf Expiration Date Model / Serial / Lot Sys Ureth Supp Ha Adv Trnvg Midurethral Implanted:Qty: 1 on 03/27/2023 by Anette Winn MD at [facility] N/A: Vagina xzoops 01/06/2026 [id number] / / [id number] Procedures * ECHO COMPLETE(Performed 04/30/2023) Performed for Abnormal EKG * CARDIAC EKG ORDER(Performed 03/29/2023) * APHERESIS/TRANSFUSION ORDER(Performed 03/29/2023) * CARDIAC RHYTHM STRIP ORDER(Performed 03/29/2023) * ENDOTRACHEAL TUBE NOTE(Performed 03/27/2023) * BLOOD TYPE VERIFICATION(Performed 03/27/2023) Performed for Pre-op testing * IA SLING OPER STRES INCONTINENCE(Performed 03/27/2023) Performed for [...] URINE(Performed 03/20/2023) Performed for Preoperative examination * IA CYSTOMETROGRAM W/MANAGER DAIRY&UP(Performed 11/01/2022) Performed for Mixed stress and urge urinary incontinence, Cystocele, midline, Rectocele * IA INTRAABDOMINAL PRESSURE TEST(Performed 11/01/2022) Performed for Mixed stress and urge urinary incontinence, Cystocele, midline, Rectocele * IA ANAL/URINARY MUSCLE STUDY(Performed 11/01/2022) Performed for Mixed stress and urge urinary incontinence, Cystocele, midline, Rectocele * IA ELECTRO-UROFLOWMETRY, FIRST(Performed 11/01/2022) Performed for Mixed stress and urge urinary incontinence, Cystocele, midline, Rectocele * URINALYSIS AUTO - POINT OF CARE (AMB) SLU(Performed 11/01/2022) Performed for Cystocele, midline * URINALYSIS AUTO - POINT OF CARE (AMB) [facility]U(Performed 09/14/2022) Performed for Mixed stress and urge urinary incontinence * IA INSERT NON-INDWELLING BLADDER(Performed 09/14/2022) Performed for Mixed stress and urge urinary incontinence Results * ECHO COMPLETE (04/30/2023 9:35 AM CDT) BSA 1.8937197 [id number] m2 [facility] CV FUJI PACS LVOT stroke [...] LA vol BP 29.753 mL [facility] CV [facility] [[email or web address] I PACS TR pk mary lou 271.7 cm/s [facility] CV [facility] [[email or web address]] I PACS LVOT pk mary lou 0.86 [...] 30 mmHg [facility] CV FU JI PACS IA pk mary lou 79.988 cm/s [facility] CV FUJ I PACS IA pk grad 3 mmHg [facility]SM CV FU [...] Modality Ultrasound Narrative 04/30/2023 1:13 PM CDT Left Ventricle: Left ventricle size is normal. Normal wall thickness. Normal systolic function with a visually estimated EF of 65 - 70%. Normal wall motion. Normal diastolic function. Tissue Doppler velocity is reduced. Tricuspid Valve: Trace regurgitation. The pulmonary artery systolic pressure [...] Procedure Note Harpal Dove MD - 04/30/2023 Left Ventricle: Left ventricle size is normal. Normal wall thickness.Normal systolic function with a visually estimated EF of 65 - 70%. Normalwall motion. Normal diastolic function. Tissue Doppler velocity isreduced. Tricuspid Valve: Trace regurgitation. The pulmonary artery systolicpressure is [...] 03/27/2023 7:58 AM CDT Angel Avila APRN-CRNA 03/27/2023 8:00 AM Endotracheal Tube Placement: Patient Location: OR. Intubation Event Date/Time: 03/27/2023 7:41 AM Procedure: intubation ([id number]). Procedure Section: Sedation: under general anesthesia. Indications [...] A NEG 03/27/2023 7:1 4 AM CDT [facility] Blood Bank BLOOD SPECIMEN / Unknown Venipuncture / Unknown 03/27/2023 6:40 AM CDT 03/27/2023 6:44 AM CDT Sky Merchant DO LAB - BLOOD BANK ORD ERABLES [facility] [address] [place] [address], [facility] [phone] * EKG 12-LEAD (03/22/2023 9:36 AM CDT) Only the most recent of2 resultswithin the time period is included. Ventricular Rate 74 BPM [facility]USE Atrial Rate 74 BPM [facility] P-R Interval 132 ms [facility] QRS Duration ms 72 ms [facility] Q-T Interval ms 402 ms [facility] QTC Calculation (Bezet) 446 ms [facility] Calculated P Carver 29 degrees [facility] Calculated R Carver -7 degrees [facility] Calculated T Carver 15 degrees [facility] Interpretation EKG NORMAL SINUS RHYTHM POSSIBLE ANTEROLATERAL INFARCT , AGE UNDETERMINED NONSPECIFIC T WAVE ABNORMALITY ABNORMAL ECG WHEN COMPARED WITH ECG OF 20-MAR-2023 09:24, NO SIGNIFICANT CHANGE WAS FOUND Confirmed by Nickolas Galicia MD ([id number]) on 03/22/2023 5:55:42 PM [facility] 03/22/2023 9:36 AM CDT 03/22/2023 5:55 PM CDT Stephenie Patel DO ECG ORDERABLES Performing Organization Address [facility] de Phone Number [facility] * CULTURE URINE (03/20/2023 9:11 AM CDT) [facility] Culture Urine 10,000-50,000 CFU/mL urogenital chana [place] 03/21/2023 2:43 PM CDT [facility] Urine URINE SPECIMEN OBTAINED BY CLEAN CATCH PROCEDURE / Unknown Collection / Unknown 03/20/2023 9:11 AM CDT 03/20/2023 9:28 AM CDT Anette Winn MD LAB - MICROBIOLOGY ORDERABLES Performing Organization Address [facility] Co de Phone Number [facility]CRO[facility] [address] [place] [address], [facility] [phone] * TYPE + SCREEN PANEL (03/20/2023 9:11 AM CDT) Pathologist [facility] ABO Rh A NEG 03/20/2023 10:11 AM CDT [facility] Comment:No history; collect retype. Antibody Screen NEG 10:11 AM CDT [facility] Blood Bank BLOOD SPECIMEN / Unknown Venipuncture / Unknown 03/20/2023 9:11 AM CDT 03/20/2023 9:28 AM CDT Anette Winn MD LAB - BLOOD BANK OR DERABLES [facility] [address] [phone] * CBC W AUTO DIFFERENTIAL (03/20/2023 9:11 AM CDT) Pathologist [facility] WBC 4.9 4.4 - 10.7 x10E9/L 03/20/2023 9:39 [facility] W[facility] Corrected 03/20/2023 9:39 AM [facility] RBC 4.66 3.80 - 5.20 x10E12/L 03/20/2023 9:39 AM CDT [facility] Hemoglobin 14.3 12.0 - 15.6 gm/dL 03/20/2023 9:39 AM CDT [facility] Hematocrit 43.5 35.9 - 45.5 % 03/20/2023 9:39 AM [facility] MCV 93.3 80.7 - 98.3 fl 03/20/2023 9:39 AM CDT [facility] MCH 30.7 26.7 - 34.0 pg 03/20/2023 9:39 AM CDT [facility] MCHC 32.9 30.8 - 35.9 gm/dL 03/20/2023 9:39 AM CDT [facility] Platelet Count 211 153 - 416 x10E9/L 03/20/2023 9:39 AM [facility] RDW-CV 13.1 12.1 - 14.9 % 03/20/2023 9:39 AM CDT [facility] MPV 10.1 9.4 - 12.9 fl 03/20/2023 9:39 AM CDT [facility] Neutrophils % 50.9 44.0 - 73.0 % 03/20/2023 9:39 AM CDT [facility] Lymphocytes % 38.8 20.0 - 43.0 % 03/20/2023 9:39 AM CDT [facility] Monocytes % 6.3 5.0 - 13.0 % 03/20/2023 9:39 AM CDT [facility] Eosinophils % 3.0 0.0 - 6.0 % 03/20/2023 9:39 AM CDT [facility] Basophils % 0.8 0.0 - 2.0 % 03/20/2023 9:39 AM CDT [facility] Immature Granulocytes 0.2 0 - 1 % 03/20/2023 9:39 AM CDT [facility] Neutrophil Absolute 2.50 2.01 - 7.14 x10E9/L 03/20/2023 9:39 AM CDT [facility] Lymphocytes Absolute 1.91 1.07 - 3.94 x10E9/L 03/20/2023 9:39 AM CDT [facility] Monocytes Absolute 0.31 0.26 - 1.07 x10E9/L 03/20/2023 9:39 AM CDT [facility] Eosinophils Absolute 0.15 0 - 0.47 x10E9/L 03/20/2023 9:39 AM CDT [facility] Basophils Absolute 0.04 0 - 0.08 x10E9/L 03/20/2023 9:39 AM T [facility] Immature Granulocytes Absolute 0.01 0.00 - 0.06 x10E9/L 03/20/2023 9:39 AM T [facility] nRBC Auto 0 /100 WBC 03/20/2023 9:39 AM T [facility] Blood BLOOD SPECIMEN / Unknown Venipuncture / Unknown 03/20/2023 9:11 AM CDT 03/20/2023 9:28 AM CDT Anette Winn MD LAB - HEMATOLOGY OR DERABLES [facility] [address] [place] [address] * (ABNORMAL) BASIC METABOLIC PANEL (CALCIUM TOTAL) (03/20/2023 9:11 AM CDT) [facility] Glucose 99 70 - 105 mg/dL 03/20/2023 9:55 AM CDT [facility] Sodium 139 136 - 145 mmol/L 03/20/2023 9:55 AM CDT [facility] Potassium 3.9 3.5 - 5.1 mmol/L 03/20/2023 9:55 AM CDT [facility] Chloride 103 98 - 107 mmol/L 03/20/2023 9:55 AM CDT [facility] CO2 24 22 - 29 mmol/L 03/20/2023 9:55 AM CDT [facility] Calcium 9.4 8.4 - 10.4 mg/dL 03/20/2023 9:55 AM T [facility] Anion Gap 12 6 - 16 mmol/L 03/20/2023 9:55 AM CDT [facility] BUN 12 7 - 26 mg/dL 03/20/2023 9:55 AM CDT [facility] Creatinine 0.79 0.57 - 1.11 mg/dL 03/20/2023 9:55 AM T [facility] eGFR by CKD-EPI 82(L) >=90 mL/min/1.7 3 m2 03/20/2023 9:55 AM T [facility] Blood BLOOD SPECIMEN / Unknown Venipuncture / Unknown 03/20/2023 9:11 AM CDT 03/20/2023 9:28 AM CDT Anette Winn MD LAB - CHEMISTRY ORD ERABLES [facility] [address] [place] [address] * IA ELECTRO-UROFLOWMETRY, FIRST, IA ANAL/URINARY MUSCLE STUDY, IA INTRAABDOMINAL PRESSURE TEST, IA CYSTOMETROGRAM W/MANAGER DAIRY&UP (11/01/2022 3:16 PM CDT) Narrative Anette Winn MD - 11/01/2022 3:16 PM CDT Anette Winn MD 11/05/2022 12:19 PM Urogynecology and Pelvic Reconstructive Surgery Procedure Note: Urodynamic Evaluation 11/01/2022 Subjective Bhumi Hetal is a 67 year old female who presents for a urodynamic evaluation. Indication(s) for study: mixed urinary incontinence, cystocele, rectocele. Laboratory Results: Catheterized urine dipstick shows: negative Urodynamic Data: Urodynamic studies are performed in a seated position unless otherwise noted. Complex uroflowmetry was performed to noninvasively study the urine flow over time. The patient was instructed to void on a commode chair. A [...] in order to further evaluate voiding function. In this study the transurethral and vaginal (or rectal) catheters are left in place and the patient urinates around these catheters. Bladder pressures are recorded [...] POCT neg Ketones UA POCT neg Specific [place] UA 1.015 Blood Urine POCT neg pH UA 7.5 Protein UA neg Urobilinogen UA neg Nitrite UA neg WBC UA neg Urine URINE / Unknown 11/01/2022 2 :15 PM CDT Anette Winn MD LAB - POINT OF CARE ORDERABLES * IA INSERT NON-INDWELLING BLADDER (09/14/2022 12:00 PM GAMING CAGE CASHIER) Narrative Anette Winn MD - 09/14/2022 12:00 PM GAMING CAGE CASHIER Anette Winn MD 09/14/2022 12:56 PM Procedure note: Straight catheterization was performed after swabbing the urethra with betadine. A 14 Fr urethral catheter was inserted without difficulty and the bladder was drained for 10 mL. The patient tolerated the procedure well. Anette Winn MD PROCEDURE/MINOR WAQAR GICAL ORDERABLES Care Teams Teacher Citizenship Relationship Specialty Start Date End Date Arabella Pop, FISH FRYER-SHUTTLE VENEERING SUPERVISOR [address] [address] PCP - General 11/01/22
--- OUTSIDE RECORDS SUMMARY | 2024-09-02 14:23 | XMS_ITS | Continuity of Care Document ---
Author Organization [facility] Address [address] [place] [address] Phone Care Team Providers Care Camp Head Counselor Name Role Phone Howard Palacio PA-C Unavailable [...] MG - Active Procedures Procedure Date Office/outpatient visit,[facility], [facility] [facility] 2018 Office/outpatient visit,[facility] [facility] 2018 Advance Directives Directive Yes / No Effective Date File Name No Information Encounters Encounter Description Practice Location Reason(s) For Visit Diagnoses Date Provider Providers Copied on Encounter Office/outpat ient visit,[facility], [facility], [address] [place] [address], [id number], tel:[phone] DARÍO YUN elbow (chief complaint) No Information 9 Hakeem Lawrence. [address] [place], [place], [id number] , [place]. tel:[phone] Office/outpat ient visit,[facility], [address] [place] [address], [id number], tel:[phone] [facility] rt hand (chief complaint) Carpal tunnel syndrome of right wristCubital tunnel syndrome on right [address] [facility] [place], [place], [place], [id number] , [place]. tel:[phone] Consulting Provider: Hu Carey NP, [address] [facility], [place], [address]. tel:[phone] ring Provider: Hu Hamlin, [address] [facility], [place], [address]. tel:[phone] Family History Family Member Type Diagnosis Age At Onset Problem (finding) Family history of Cance r, unknown Payers Payer name Insurance type Covered green party ID Authortono torres(s) [employer] [place] [employer] [id number] Social History Type Description Quantity Date Captured [...] a history of CTR 2003 done in [facility]. Bhumi complains of weakness, loss of strength, [...]
== END 2024-09-02 14:21 | disposition home or self-care (01) ==
PROVIDERS: PCP Nurse Practitioner Family; Visit Provider Physician Assistant
DX: Z12.31 Encounter for screening mammogram for malignant neoplasm of breast (principal)
CPT/HCPCS: 77063; 77067